=== PATIENT | male | born 1965 | race Caucasian/White ===

== ENCOUNTER 2016-10-20 13:27 | Emergency (ER) | payer BC ==
[2016-10-20 13:33] VITALS: BP 138/80; PULSE 74; RESP 20; TEMP 98.4
[2016-10-20] MEDS ORDERED: PROPARACAINE 0.5% OPHTH DROPS 15 ML BTL ONE (13:54)
--- NOTE | 2016-10-20 14:45 | ED ---
Eye Problem HPI - General Chief complaint: Eye Problems Stated complaint: Flash Burn to face Time Seen by Provider: 10/20/16 13:59 Source: patient, RN notes reviewed Mode of arrival: ambulatory Limitations: no limitations - History of Present Illness Initial comments: 50 yo male presents to the ER with cc of right eye irritation and pain. Patient has had this since Monday. Patient has been noticing some drainage and irritation to eye. Patient states that he was concerned it could be flashburn because he does well. Patient states that they are just continued irritated only one eye so he just does not seem to make sense. Patient denies any recent fever, chills, shortness of breath, chest pain, back pain, abdominal pain, nausea vomiting, numbness or tingling, dysuria or hematuria, constipation or diarrhea, headaches, or any other current symptoms. - Related Data Home Medications Medication Instructions Recorded Confirmed Insulin Glargine,Hum.rec.anlog 20 unit SQ HS 11/11/13 02/19/16 [Lantus Solostar] [place]-3 Acid Ethyl Esters [Lovaza] 1 gm PO BID 11/11/13 02/19/16 metFORMIN HCL [Glucophage] 1,000 mg PO AC-BID 02/24/15 02/19/16 Colchicine [Colcrys] 0.6 mg PO DAILY 02/19/16 02/19/16 Cyanocobalamin (Vitamin B-12) 1,000 mcg SL DAILY 02/19/16 02/19/16 [B-12 Oral Solution] Previous Rx's Medication Instructions Recorded Aspirin 325 mg PO DAILY #100 tab 02/21/16 Aspirin 325 mg PO DAILY #100 tab 02/21/16 Clopidogrel [Plavix] 75 mg PO DAILY #30 tab 02/21/16 Escitalopram [Lexapro] 10 mg PO DAILY #30 tab 02/21/16 HYDROcodone/APAP 7.5-325MG [Qu[place] 1 tab PO Q4H PRN #60 tab 02/21/16 7.5-325] Lisinopril [Zestril] 10 mg PO BID #30 tab 02/21/16 Metoprolol Tartrate [Lopressor] 50 mg PO BID #30 tab 02/21/16 Nitroglycerin Sl Tabs [Nitrostat] 0.4 mg SUBLINGUAL Q5M PRN #100 tab 02/21/16 Pravastatin Sodium [Pravachol] 80 mg PO HS #30 tab 02/21/16 Zolpidem [Ambien] 5 mg PO HS PRN #30 tab 02/21/16 amLODIPine [Norvasc] 5 mg PO DAILY 30 Days 02/21/16 Tobramycin 0.3% Ophth Oint [Tobrex 1 applic RIGHT EYE TID 7 Days 10/20/16 0.3% Ophth Oint] Allergies Allergy/AdvReac Type Severity Reaction Status Date / Time morphine Allergy Rash/Hives Verified 10/20/16 13:33 Review of Systems ROS Statement: Those systems with pertinent positive or pertinent negative responses have been documented in the HPI. ROS Other: All systems not noted in ROS Statement are negative. Past Medical History Past Medical History: Coronary Artery Disease (CAD), Chest Pain / Angina, Heart Failure, Diabetes Mellitus, Deep Vein Thrombosis (DVT), Hyperlipidemia, Hypertension, Myocardial Infarction ([place]), Vascular Disorder Additional Past Medical History / Comment(s): IDDM type II, KIDNEY STONES,PVD, DVT x6 LLE, history of prior nonischemic cardiomyopathy, [place] years ago (does not recall year). Last Myocardial Infarction Date:: unkn History of Any Multi-Drug Resistant Organisms: None Reported Past Surgical History: Cholecystectomy, Coronary Bypass/CABG, Heart Catheterization Additional Past Surgical History / Comment(s): 2013 CABG-4 vessel, Past Anesthesia/Blood Transfusion Reactions: No Reported Reaction Past Psychological History: No Psychological Hx Reported Additional Psychological History / Comment(s): Pt resides with his spouse and 2 dogs. He is independent. Smoking Status: Former smoker Past Alcohol Use History: None Reported Additional Past Alcohol Use History / Comment(s): Pt started smoking at the age of 21 yrs (1986) and is a ppd smoker. Past Drug Use History: None Reported - Past Family History Mother Family Medical History: Coronary Artery Disease (CAD), Dementia Additional Family Medical History / Comment(s): Mother is 82 yrs old. Father Family Medical History: CVA/TIA Additional Family Medical History / Comment(s): Father from CVA at the age of 47 yrs. Brother(s) Family Medical History: AICD/Pacemaker General Exam Limitations: no limitations General appearance: alert, in no apparent distress Head exam: Present: atraumatic, normocephalic, normal inspection Eye exam: Present: PERRL, EOMI, scleral icterus, conjunctival injection, other ( With lamp examination to show foreign body). Absent: normal appearance ( Patient appears to have a black foreign body at 3 o'clock position over the cornea), periorbital swelling (Due to the right eye), periorbital tenderness ENT exam: Present: normal exam, mucous membranes moist Neck exam: Present: normal inspection. Absent: tenderness, meningismus, lymphadenopathy Respiratory exam: Present: normal lung sounds bilaterally. Absent: respiratory distress, wheezes, rales, rhonchi, stridor Cardiovascular Exam: Present: regular rate, normal rhythm, normal heart sounds. Absent: systolic murmur, diastolic murmur, rubs, gallop, clicks Neurological exam: Present: alert, oriented X3 Psychiatric exam: Present: normal affect, normal mood Skin exam: Present: warm, dry, intact, normal color. Absent: rash Course Vital Signs 10/20/16 13:30 Temperature 98.4 F Pulse Rate 74 Respiratory 20 Rate Blood Pressure 138/80 O2 Sat by Pulse 99 Oximetry Procedures - Procedures Initial comment: Patient underwent proparacaine numbing drops. First 19-gauge needle was used to excise a small amount of the foreign body. The pain but was use which excised the rest of the foreign body however he continues to have a rust ring. Medical Decision Making - Medical Decision Making 50-year-old male presents to the right eye. At this time we did remove the foreign body or rust ring. It is a full-thickness of the rust ring we did discuss that he needs to follow-up with ophthalmology for this. We will start him on tobramycin ointment. Discussed return parameters and follow-up. Patient stated he understood all questions have been answered. He will be discharged. Disposition Clinical Impression: Acute foreign body of right eye, Corneal abrasion Disposition: HOME SELF-CARE Condition: Stable Instructions: Corneal Abrasion (ED) Additional Instructions: Please use medication as discussed. Please follow up with family doctor if symptoms have not improved over the next two days. Please return to the emergency room if your symptoms increase or worsen or for any other concerns. please contact optho today regarding followup. Prescriptions: Tobramycin 0.3% Ophth Oint [Tobrex 0.3% Ophth Oint] 1 applic RIGHT EYE TID 7 Days Referrals: Maurice Hernandez MD [Primary Care Provider] - 1-2 days Nigel Yun MD [STAFF PHYSICIAN] - 1-2 days Time of Disposition: 14:44
== END 2016-10-20 14:52 | disposition home or self-care (01) ==
LOC: EC 13:27
DX: T15.01XA Foreign body in cornea, right eye, initial encounter (principal); E11.9 Type 2 diabetes mellitus without complications; E78.5 Hyperlipidemia, unspecified; Z87.891 Personal history of nicotine dependence; Z79.4 Long term (current) use of insulin; Z79.84 Long term (current) use of oral hypoglycemic drugs; Z79.899 Other long term (current) drug therapy; Z88.5 Allergy status to narcotic agent; X19.XXXA Contact with other heat and hot substances, initial encounter; Y93.89 Activity, other specified
CPT/HCPCS: 65220; 99283

== ENCOUNTER → 2018-06-16 | Outpatient (CLI) | payer BC ==
[2018-06-16 11:04] LABS: HGB 15.8 gm/dL (13.0-17.5); MCH 29.8 pg (25.0-35.0); MCHC 33.7 g/dL (31.0-37.0); MCV 88.5 fL (80.0-100.0); Mean Platelet Volume 7.1; Platelet Count 243 k/uL (150-450); RBC 5.32 m/uL (4.30-5.90); WBC 6.1 k/uL (3.8-10.6)
[2018-06-16 11:11] LABS: Potassium 5.2 mmol/L (3.5-5.1)
== END | disposition home or self-care (01) ==
LOC: LABPAT 10:25
PROVIDERS: ATTEND Anesthesiology
DX: Z01.818 Encounter for other preprocedural examination (principal); Z01.812 Encounter for preprocedural laboratory examination; K46.9 Unspecified abdominal hernia without obstruction or gangrene
CPT/HCPCS: 36415; 80051; 85027; 93005

== ENCOUNTER 2018-06-19 08:45 | Day surgery (SDC) | payer BC ==
[2018-06-15 09:21] VITALS: BMI 29.9
[~2018-06-19 08:45] MED LIST: HEPARIN SODIUM,PORCINE 5,000 UNIT/ML 1 ML VIAL SQ ONE; ceFAZolin IN SWFI 2 GM/20 ML SYRINGE IVP ONE
[2018-06-19] MEDS ORDERED: LACTATED RINGERS 1,000 ML IV ONE (09:17)
[2018-06-19 09:18] LABS: Glucose,Whole Blood 131 mg/dL (75-99)
--- NOTE | 2018-06-19 09:26 | P.GSHP ---
History of Present Illness H&P Date: 06/19/18 Chief Complaint: Left inguinal hernia This a 52-year-old male who presents today for laparoscopic robotic system repair of left inguinal hernia. Patient developed a growing mass in his left groin pain he seen [facility] found have a reducible left and one hernia. Past Medical History Past Medical History: Diabetes Mellitus, Deep Vein Thrombosis (DVT), Hyperlipidemia, Myocardial Infarction ([place]), Vascular Disorder Additional Past Medical History / Comment(s): hx KIDNEY STONES, DVT x 6 , see Dr Freedman H&P, [place] 1994,1997,2015, inguinal hernia, PVD left leg Last Myocardial Infarction Date:: 2015 History of Any Multi-Drug Resistant Organisms: None Reported Past Surgical History: AICD, Cholecystectomy, Coronary Bypass/CABG, Heart Catheterization, Pacemaker, Tonsillectomy Additional Past Surgical History / Comment(s): 2013 CABG-4 vessel,. PACEMAKER/ [employer] Past Anesthesia/Blood Transfusion Reactions: No Reported Reaction Type of Cardiac Device: Permanent Pacemaker, AICD Device Placement Date:: 04/04/2017 Smoking Status: Current every day smoker - Past Family History Mother Family Medical History: No Reported History Additional Family Medical History / Comment(s): Mother is 82 yrs old. Father Family Medical History: CVA/TIA Additional Family Medical History / Comment(s): Father from CVA at the age of 47 yrs. Brother(s) Family Medical History: AICD/Pacemaker Medications and Allergies Home Medications Medication Instructions Recorded Confirmed Type Insulin Glargine,Hum.rec.anlog 10 unit SQ HS PRN 11/11/13 06/19/18 History [Lantus Solostar] metFORMIN HCL [Glucophage] 1,000 mg PO AC-BID 02/24/15 06/19/18 History Nitroglycerin Sl Tabs [Nitrostat] 0.4 mg SUBLINGUAL Q5M PRN #100 tab 02/21/16 Rx Aspirin [Adult Low Dose Aspirin EC] 81 mg PO HS 03/31/17 06/19/18 History Dulaglutide [Trulicity] 0.75 mg SQ RT-Q4H 03/31/17 06/19/18 History Escitalopram [Lexapro] 10 mg PO HS 03/31/17 06/19/18 History Lisinopril [Zestril] 20 mg PO QAM 03/31/17 06/19/18 History Prasugrel [Effient] 10 mg PO HS 03/31/17 06/19/18 History Rosuvastatin Calcium [Crestor] 40 mg PO HS 03/31/17 06/19/18 History Spironolactone [Aldactone] 25 mg PO DAILY 03/31/17 06/19/18 History Carvedilol [Coreg] 6.25 mg PO BID #60 tablet 04/03/17 06/19/18 Rx Allergies Allergy/AdvReac Type Severity Reaction Status Date / Time morphine Allergy Severe Rash/Hives Verified 06/19/18 09:05 Surgical - Exam Vital Signs Temp Pulse Resp BP Pulse Ox 98.3 F 74 16 126/83 96 06/19/18 08:57 06/19/18 08:57 06/19/18 08:57 06/19/18 08:57 06/19/18 08:57 - General well developed, no distress - Eyes PERRL - ENT normal pinna - Neck no masses - Respiratory normal expansion - Cardiovascular Rhythm: regular - Abdomen Reducible left inguinal hernia hernia Abdomen: soft, non tender Results - Labs Abnormal Lab Results - Last 24 Hours (Table) 06/19/18 Range/Units 09:15 POC Glucose (mg/dL) 131 H (75-99) mg/dL Assessment and Plan Assessment: Left inguinal hernia. We'll perform laparoscopic robotic-assisted repair.
[2018-06-19] MEDS ORDERED: MIDAZOLAM 2 MG/2 ML VIAL IV ONE (09:34)
[2018-06-19] MEDS ORDERED: NEOSTIGMINE 1 MG/ML 10 ML VIAL ONE (09:47)
[2018-06-19] MEDS ORDERED: ROPIVACAINE 5 MG/ML 30 ML VIAL ONE (09:47)
[2018-06-19] MEDS ORDERED: ePHEDrine SULFATE/0.9% NACL/PF 50 MG/5 ML SYRINGE IV ONE (09:47)
[2018-06-19] MEDS ORDERED: PROPOFOL 10 MG/ML 20 ML VIAL IV ONE (09:47)
[2018-06-19] MEDS ORDERED: fentaNYL (PF) 50 MCG/ML 2 ML AMP ONE (09:47)
[2018-06-19] MEDS ORDERED: KETOROLAC 30 MG/ML 1 ML VIAL ONE (09:47)
[2018-06-19] MEDS ORDERED: GLYCOPYRROLATE 0.2 MG/ML 2 ML VIAL ONE (09:47)
[2018-06-19] MEDS ORDERED: LIDOCAINE 1% INJ 10MG/ML (10 ML MDV) ONE (09:47)
[2018-06-19] MEDS ORDERED: LIDOCAINE 1% INJ 10MG/ML (20 ML MDV) ONE (09:47)
[2018-06-19] MEDS ORDERED: SUCCINYLCHOLINE CHLORIDE 100 MG/5 ML SYR IV ONE (09:47)
[2018-06-19] MEDS ORDERED: MIDAZOLAM 2 MG/2 ML VIAL ONE (09:47)
[2018-06-19] MEDS ORDERED: ROCURONIUM BROMIDE 10 MG/ML 10 ML VIAL IV ONE (09:47)
[2018-06-19] MEDS ORDERED: LIDOCAINE 1% 20 ML VIAL (10MG/ML) FOR IV START INTRADERMA ONE ×2 (09:50→09:51)
[2018-06-19] MEDS ORDERED: ONDANSETRON 4 MG/2 ML VIAL IVP ONE (09:51)
[2018-06-19] MEDS ORDERED: DEXAMETHASONE SOD PHOSPHATE 10 MG/ML 1 ML VIAL IV ONE (09:52)
[2018-06-19] MEDS ORDERED: BUPIVACAIN-EPI 0.25%-1:200,000 30 ML VIAL SQ ONE ×2 (09:54→10:20)
--- NOTE | 2018-06-19 11:07 | P.OP ---
Date of Procedure: 06/19/18 Preoperative Diagnosis: Left inguinal hernia Postoperative Diagnosis: Left inguinal hernia Procedure(s) Performed: Laparoscopic robotic-assisted repair of left inguinal hernia Excision of cord lipoma Anesthesia: CRISTEL Surgeon: Manuel Dodson Estimated Blood Loss (ml): 5 Pathology: other (Cord lipoma) Condition: stable Disposition: PACU Description of Procedure: The patient was placed on the operating table in the supine position. The patient received general anesthesia. The patient's abdomen was prepped and draped in usual sterile fashion. The skin was anesthetized 1% local Xylocaine at the incision sites. Using an 11 blade a skin incision was made at the umbilicus. The fascia was grasped with a [place] and then the peritoneal cavity was entered with the Veress needle. Position of the Veress needle was confirmed with a positive drop test. After adequate insufflation a 5 mm trocar was placed into the peritoneal cavity. The Laparoscope was placed the peritoneal cavity. And a robotic 8 mm trocar was placed in the right lateral position and then another 8 mm robotic trochars placed in the left lateral position. The original 5 mm trocar was exchanged for a 12 mm trocar. The patient was placed in reverse Trendelenburg and then the patient was docked to the robot. Next the peritoneum over top of the hernia was incised and then using blunt and sharp dissection and electrocautery the hernia sac was dissected free from the floor of the inguinal canal. The hernia sac was completely reduced into the peritoneal cavity. And then using the Pro mechanism assembler mesh the hernia was repaired. The peritoneum was then sutured with 2-0V lock suture. The patient was then undocked the robot. The cord lipoma was retrieved. The needle was withdrawn from the peritoneal cavity. The umbilical trocar site was closed with 0 Ethibond suture. The skin was closed interrupted 3-0 Monocryl suture. Dermabond dressing was applied. Patient was sent to recovery in stable condition.
[2018-06-19 11:24] LABS: Glucose,Whole Blood 161 mg/dL (75-99)
[2018-06-19 11:27] VITALS: TEMP 97.1
[2018-06-19 11:31] VITALS: RESP 16
--- NOTE | 2018-06-19 12:20 | P.ONQ ---
Anesthesiology Proc Note - PNB - Peripheral Nerve Block Performed Left Transversus Abdominis Single Time Out Performed: Yes Procedure Start Time: Procedure Stop Time: : Indication: Acute Post-Operative Pain, Requested by physician Sedation Type: Sedate with meaningful contact maintained Preparation: Sterile Prep Position: Supine Needle Size: 50mm (2") Needle Gauge: 21 Technique: Ultrasound Injectate: 0.5% Ropivacaine (see comment for volume) (ropi .5% 20cc plus xylo 1 % 10cc) Blood Aspirated: No Pain Paresthesia on Injection Noted: No Resistance on Injection: Normal Events: Uneventful and Well Tolerated
[2018-06-19 13:21] VITALS: PULSE 64
[2018-06-19 14:32] VITALS: BP 139/85
== END 2018-06-19 14:50 | disposition home or self-care (01) ==
LOC: OR 08:45
PROVIDERS: ATTEND Surgery
DX: K40.90 Unilateral inguinal hernia, without obstruction or gangrene, not specified as recurrent (principal); E11.51 Type 2 diabetes mellitus with diabetic peripheral angiopathy without gangrene; E78.5 Hyperlipidemia, unspecified; D17.6 Benign lipomatous neoplasm of spermatic cord; I25.2 Old myocardial infarction; F17.200 Nicotine dependence, unspecified, uncomplicated; F32.9 Major depressive disorder, single episode, unspecified; I25.10 Atherosclerotic heart disease of native coronary artery without angina pectoris; Z95.810 Presence of automatic (implantable) cardiac defibrillator; Z95.1 Presence of aortocoronary bypass graft; Z87.442 Personal history of urinary calculi; Z86.718 Personal history of other venous thrombosis and embolism; Z79.82 Long term (current) use of aspirin; Z79.4 Long term (current) use of insulin; Z88.5 Allergy status to narcotic agent
CPT/HCPCS: 88304; 84132; 49650; 64486; C1781; J2250; J1644; J1100; J2710; J2405; J2001 ×2; J3010; J1885; J2795; J0330; J2704; J0690

== ENCOUNTER → 2019-03-09 | Outpatient (CLI) | payer BC ==
[2019-03-11 10:27] LABS: African American GFR (CKD) 40.1 (60.0-200.0); BUN/Creat Ratio 20.48 Ratio (12.00-20.00); Calcium 9.4 mg/dL (8.7-10.3); Potassium 4.5 mmol/L (3.5-5.5)
== END | disposition home or self-care (01) ==
LOC: LABMAIN 18:28
PROVIDERS: ATTEND Internal Medicine Clinical Cardiac Electrophysiology
DX: I47.2 Ventricular tachycardia (principal)
CPT/HCPCS: 36415; 80048; 84443

== ENCOUNTER → 2019-06-21 | Outpatient (CLI) | payer BC ==
[2019-06-21 12:27] LABS: Magnesium 1.7 mg/dL (1.6-2.3); Potassium 4.5 mmol/L (3.5-5.1)
[2019-06-21 12:44] LABS: HCT 45.1 % (39.0-53.0); HGB 14.6 gm/dL (13.0-17.5); MCH 29.6 pg (25.0-35.0); MCHC 32.4 g/dL (31.0-37.0); MCV 91.3 fL (80.0-100.0); Mean Platelet Volume 7.5; Platelet Count 235 k/uL (150-450); RBC 4.93 m/uL (4.30-5.90); RDW 13.7 % (11.5-15.5); WBC 8.1 k/uL (3.8-10.6)
== END | disposition home or self-care (01) ==
LOC: LABPAT 11:20
PROVIDERS: ATTEND Internal Medicine Clinical Cardiac Electrophysiology
DX: Z01.812 Encounter for preprocedural laboratory examination (principal); I47.2 Ventricular tachycardia; I25.5 Ischemic cardiomyopathy
CPT/HCPCS: 36415; 80051; 82565; 82947; 83735; 84520; 85027

== ENCOUNTER 2019-06-25 11:48 | Day surgery (SDC) | payer BC ==
[2019-06-20 11:37] VITALS: BMI 29.2
[~2019-06-25 11:48] MED LIST changes: -HEPARIN SODIUM,PORCINE 5,000 UNIT/ML 1 ML VIAL SQ ONE; +LACTATED RINGERS 1,000 ML IV SCH; +LIDOCAINE 1% 20 ML VIAL (10MG/ML) FOR IV START INTRADERMA PRN; +ONDANSETRON 4 MG/2 ML VIAL IVP PRN; +SODIUM CHLORIDE 0.9% 1,000 ML IV SCH; -ceFAZolin IN SWFI 2 GM/20 ML SYRINGE IVP ONE; +fentaNYL (PF) 50 MCG/ML 2 ML AMP IV PRN
[2019-06-25 12:21] LABS: Glucose,Whole Blood 140 mg/dL (75-99)
[2019-06-25] MEDS ORDERED: FUROSEMIDE 10 MG/ML 2 ML VIAL ONE (13:59)
[2019-06-25] MEDS ORDERED: ISOPROTERENOL 250 MCG/1.25 ML SYR IV ONE (13:59)
[2019-06-25] MEDS ORDERED: SUCCINYLCHOLINE CHLORIDE VIAL 200 MG/10 ML VIAL IV ONE (13:59)
[2019-06-25] MEDS ORDERED: NEOSTIGMINE 1 MG/ML 10 ML VIAL ONE (13:59)
[2019-06-25] MEDS ORDERED: ePHEDrine SULFATE/0.9% NACL/PF 50 MG/5 ML SYRINGE IV ONE (13:59)
[2019-06-25] MEDS ORDERED: PROPOFOL 10 MG/ML 20 ML VIAL IV ONE (13:59)
[2019-06-25] MEDS ORDERED: ROCURONIUM BROMIDE 10 MG/ML 5 ML VIAL IV ONE (13:59)
[2019-06-25] MEDS ORDERED: PROTAMINE SULFATE 10 MG/ML 5 ML VIAL IV ONE ×3 (13:59→18:18)
[2019-06-25] MEDS ORDERED: fentaNYL (PF) 50 MCG/ML 2 ML AMP ONE (13:59)
[2019-06-25] MEDS ORDERED: GLYCOPYRROLATE 0.2 MG/ML 2 ML VIAL ONE (13:59)
[2019-06-25] MEDS ORDERED: MIDAZOLAM 2 MG/2 ML VIAL ONE (13:59)
[2019-06-25] MEDS ORDERED: HEPARIN SODIUM,PORCINE 10,000 UNIT/ML 1 ML VIAL ONE (13:59)
[2019-06-25] MEDS ORDERED: LIDOCAINE 1% INJ 10MG/ML (20 ML MDV) ONE ×2 (13:59→14:18)
[2019-06-25] MEDS ORDERED: HEPARIN SOD,PORK IN 0.45% NACL 25,000 UNIT in 0.45% NACL 1 250ML.BAG IV ONE (14:17)
[2019-06-25] MEDS ORDERED: HEPARIN SODIUM (1,000 UNIT/ML) 1,000 UNIT in SODIUM CHLORIDE 0.9% 1,000 ML IRRIGATION ONE (14:17)
[2019-06-25] MEDS ORDERED: LIDOCAINE 1% INJ 10MG/ML (20 ML MDV) SQ ONE (14:46)
[2019-06-25 16:20] LABS: Glucose,Whole Blood 109 mg/dL (75-99)
[2019-06-25] MEDS ORDERED: SODIUM CHLORIDE 0.9% 1,000 ML IV ONE (16:26)
[2019-06-25] MEDS ORDERED: PROTAMINE SULFATE 10 MG/ML 25 ML VIAL IV ONE (18:18)
[2019-06-25] MEDS ORDERED: ACETAMINOPHEN TAB 325 MG TAB PO PRN (18:19)
[2019-06-25] MEDS ORDERED: HYDROcodone/APAP 5-325MG 1 EACH TAB PO PRN (18:19)
--- NOTE | 2019-06-25 18:30 | P.PRLE ---
RE: Toribio Klein Dear Mauricemike Rooney underwent ablation for ischemic VT successfully. After the ablation he was rendered completely noninducible and no arrhythmias could be induced on and off Isuprel and aggressive ventricular stimulation protocol For the first one month post ablation I want to treat him with ELIQUIS 5 g twice daily as an anticoagulant. Therefore Effient must be held for that month and instead replaced with Plavix After one month when he stops ELIQUIS he should also stop Plavix and go back on Effient Effient and ELIQUIS should not be used together Thank you for entrusting me with the care of the patient Warm regards Sincerely Carlos Freedman
[2019-06-25] MEDS ORDERED: ACETAMINOPHEN IV (For NPO) 1,000 MG in EMPTY BAG 1 BAG IVPB ONE (19:30)
[2019-06-25] MEDS ORDERED: ONDANSETRON 4 MG/2 ML VIAL IVP ONE (19:30)
[2019-06-25 19:49] LABS: Glucose,Whole Blood 125 mg/dL (75-99)
[2019-06-25] MEDS ORDERED: ATORVASTATIN 80 MG TAB PO SCH (21:00)
[2019-06-25] MEDS ORDERED: ASPIRIN 81 MG PO SCH (21:00)
[2019-06-25] MEDS ORDERED: ESCITALOPRAM 10 MG TAB PO SCH (21:00)
[2019-06-25] MEDS: CARVEDILOL 12.5 MG TAB PO SCH (21:04)
[2019-06-25] MEDS: SACUBITRIL/VALSARTAN 49 MG-51 MG TABLET PO SCH (21:04)
[2019-06-25] MEDS: APIXABAN 5 MG TAB PO SCH (21:04)
[2019-06-25] MEDS: SOTALOL 80 MG TAB PO SCH (21:04)
[2019-06-26] MEDS: CARVEDILOL 12.5 MG TAB PO SCH (06:46)
[2019-06-26 06:51] LABS: Glucose,Whole Blood 164 mg/dL (75-99)
[2019-06-26] MEDS ORDERED: INSULIN DETEMIR (LEVEMIR) 100 UNIT/ML SYR SQ SCH (07:00)
[2019-06-26] MEDS ORDERED: metFORMIN 500 MG TAB PO SCH (07:30)
[2019-06-26] MEDS: APIXABAN 5 MG TAB PO SCH (08:44)
[2019-06-26] MEDS: SOTALOL 80 MG TAB PO SCH (08:45)
[2019-06-26] MEDS: SACUBITRIL/VALSARTAN 49 MG-51 MG TABLET PO SCH (08:46)
[2019-06-26] MEDS ORDERED: NON FORMULARY DRUG (Empagliflozin [Jardiance] 10 MG) PO SCH (09:00)
[2019-06-26] MEDS ORDERED: CLOPIDOGREL 75 MG TAB PO SCH (09:00)
[2019-06-26 11:36] VITALS: BP 123/77; PULSE 66; RESP 18; TEMP 98.1
--- NOTE | 2019-06-26 13:39 | P.DS ---
Providers Attending physician: Carlos Freedman Primary care physician: [facility] Course: Patient is doing well. No chest discomfort dizziness lightheadedness or palpitations His groins of healed well. His no hematoma no swelling Normal heart sounds are normal S1 normal S2 Breath sounds are clear no rhonchi no crackles Extremities are warm, no edema Impression Ventricular tachycardia, 2 separate morphologies detected on ICD interrogation Appropriate ICD therapies Status post scar based VT ablation Following that no VT was inducible on and off Isuprel and with an aggressive ventricular stim protocol Plan ELIQUIS 5 g twice daily for one month Plavix 75 g daily for one month Hold Effient for one month Continue other medications After one month stop ELIQUIS and Plavix and restart Effient Explained to the patient and I wrote it down for him Follow-up in the office in one week Patient Condition at Discharge: Stable Plan - Discharge Summary Discharge Rx Participant: No New Discharge Prescriptions: New Apixaban [Eliquis] 5 mg PO BID #60 tab Clopidogrel Bisulfate [Plavix] 75 mg PO DAILY #30 tab Discontinued Prasugrel [Effient] 10 mg PO HS No Action RX: metFORMIN HCL [Glucophage] 1,000 mg PO AC-BID RX: Nitroglycerin Sl Tabs [Nitrostat] 0.4 mg SUBLINGUAL Q5M PRN #100 tab PRN Reason: Chest Pain Aspirin [Adult Low Dose Aspirin EC] 81 mg PO HS Rosuvastatin Calcium [Crestor] 40 mg PO HS RX: Escitalopram [Lexapro] 10 mg PO HS Sotalol [Betapace] 80 mg PO BID Empagliflozin [Jardiance] 10 mg PO DAILY Carvedilol [Coreg] 25 mg PO BID Sacubitril/Valsartan [Entresto 49 mg-51 mg Tablet] 1 each PO BID Dulaglutide [Trulicity] 1.5 mg SQ BARBER Insulin Glargine,Hum.rec.anlog [Basaglar Kwikpen U-100] 26 unit SQ DAILY Discharge Medication List RX: metFORMIN HCL [Glucophage] 1,000 mg PO AC-BID 02/24/15 [History] RX: Nitroglycerin Sl Tabs [Nitrostat] 0.4 mg SUBLINGUAL Q5M PRN #100 tab 02/21/16 [Rx] Aspirin [Adult Low Dose Aspirin EC] 81 mg PO HS 03/31/17 [History] RX: Escitalopram [Lexapro] 10 mg PO HS 03/31/17 [History] Rosuvastatin Calcium [Crestor] 40 mg PO HS 03/31/17 [History] Carvedilol [Coreg] 25 mg PO BID 06/20/19 [History] Dulaglutide [Trulicity] 1.5 mg SQ BARBER 06/20/19 [History] Empagliflozin [Jardiance] 10 mg PO DAILY 06/20/19 [History] Insulin Glargine,Hum.rec.anlog [Basaglar Kwikpen U-100] 26 unit SQ DAILY 06/20/19 [History] Sacubitril/Valsartan [Entresto 49 mg-51 mg Tablet] 1 each PO BID 06/20/19 [History] Sotalol [Betapace] 80 mg PO BID 06/20/19 [History] Apixaban [Eliquis] 5 mg PO BID #60 tab 06/25/19 [Rx] Clopidogrel Bisulfate [Plavix] 75 mg PO DAILY #30 tab 06/25/19 [Rx] Follow up Appointment(s)/Referral(s): Carlos Freedman MD [STAFF PHYSICIAN] - 07/02/19 10:45 am (Monday with [employer]ESPERSON) Basilio Zazueta MD [STAFF PHYSICIAN] - 1 Week (You will see Dr. Freedman just for the follow up post ablation) Patient Instructions/Handouts: Cardiac Ablation (DC) Activity/Diet/Wound Care/Special Instructions: Post EP study - Ablation instructions 1. Keep access sites dry for 2 days. 2. No heavy lifting or straining for 2 days. 3. Avoid bending the hips repeatedly for 2 days. 4. You may go up and down stairs slowly Call if the following is noted 1. Bleeding, increasing swelling or pain at the access sites. 2. Increasing chest discomfort, especially upon taking a deep breath. 3. Increasing shortness of breath, at rest or with exertion. 4. Undue cough / phlegm 5. Difficulty or pain while swallowing. 6. Pain or change in color in the extremities. 7. Fever, chills, rigors. 8. Increasing headache or neurologic symptoms. 9. Dizziness, fainting, palpitations ELIQUIS 5 g twice daily for one month Plavix 75 g daily for one month While on ELIQUIS, do not take Effient After one month stop both ELIQUIS and Plavix and go back on Effient All other medications to continue Discharge Disposition: HOME SELF-CARE
--- NOTE | 2019-06-27 19:32 | P.HPCAR ---
History of Present Illness This is Dr. 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 Stable from a heart failure standpoint no orthopnea PND no chest discomfort no recent syncope in the last week or so PLAN: Proceed with EP study and ablation of VT HPI Patient with recurrent sustained ventricular tachycardia as well as ventricular fibrillation requiring ICD therapies Was admitted to the hospital for this Sotalol was initiated 80 mg twice daily Stress testing did not show any evidence for ischemia He is a mildly abnormal aortic valve and reduced LV systolic function with an inferolateral scar After detailed discussion with the patient in the office he decided to proceed with an EP study per my recommendation ROS: No fever chills or rigors, no cough, phlegm or expectoration, no nausea, vomiting or diarrhea, no hematuria, dysuria, no musculoskeletal complaints, no strokes or seizures, no skin lesions. EXAMINATION: 137/88 mmHg, afebrile 97.3F, pulse rate in the 60s and 70s Breath sounds are clear no rhonchi no crackles Heart sounds S1-S2 normal no murmurs gallop or rub Abdomen is soft nontender Extremities warm no edema, femoral pulses well palpable REVIEW OF LABS, ECG & MEDICAL DATA History of coronary artery disease History of atrial tachycardia with RVR Type 2 diabetes Hypertension PVD Past Medical History Past Medical History: Diabetes Mellitus, Deep Vein Thrombosis (DVT), Hyperlipidemia, Myocardial Infarction ([place]), Vascular Disorder Additional Past Medical History / Comment(s): See Dr Freedman H&P, hx KIDNEY STONES, DVT x 6, [place] 1994,1997,2015, PVD left leg Last Myocardial Infarction Date:: 2015 History of Any Multi-Drug Resistant Organisms: None Reported Past Surgical History: AICD, Cholecystectomy, Coronary Bypass/CABG, Heart Catheterization, Hernia Repair, Pacemaker, Tonsillectomy Additional Past Surgical History / Comment(s): left inguinal hernia, 2013 CABG-4 vessel, PACEMAKER/[employer] Past Anesthesia/Blood Transfusion Reactions: No Reported Reaction Type of Cardiac Device: Permanent Pacemaker, AICD Device Placement Date:: 04/04/2017 Smoking Status: Current every day smoker - Past Family History Mother Family Medical History: No Reported History Additional Family Medical History / Comment(s): Mother is 82 yrs old. Father Family Medical History: CVA/TIA Additional Family Medical History / Comment(s): Father from CVA at the age of 47 yrs. Brother(s) Family Medical History: AICD/Pacemaker
[2019-06-30] MEDS ORDERED: NON FORMULARY DRUG (Dulaglutide [Trulicity] 1.5 MG) SQ SCH (09:00)
--- NOTE | 2019-07-09 09:28 | PCN ---
PROCEDURE NOTE Mr. Klein is a 53-year-old male patient with significant cardiomyopathy. He has an inferior lateral myocardial infarct, old, and has had runs of non sustained ventricular tachycardia and has been treated with sotalol. He is brought in for an EP study and for ischemic VT, scar base. DESCRIPTION OF PROCEDURE: The patient is brought to the EP lab in a fasting state. Written informed consent was obtained prior to the procedure. The patient was performed with conscious sedation. The patient has a [place] [employer] device that was interrogated with a programmed backup pacing AV/VA at 40 beats per minute and impedance and sensing was interrogated. The tachytherapies are turned off. At the end of the procedure, the tachytherapies are turned on. R waves are 14.7 millivolts. The pacing impedance was 467 ohms. The shocking impedance was 68 ohms. They were stable. A long femoral artery sheath was placed in the right femoral artery. Venous sheaths are placed in the left femoral vein. Intracardiac echo catheter was placed. Diagnostic catheters were placed. The PentaRay catheter was first placed in the LV and scar map details. The map was performed in the inferior wall. CD mapping was performed with intracardiac echo. The scar was carefully defined and the isthmi were carefully defined (with bipolar voltage). The area of scar based upon the bipolar voltage map was smaller than the unipolar scar map. Ablation was based on the bipolar map. The isthmi-riddled scars were carefully deleted. Extra stimulation was performed and the functions, significance of each isthmus was defined with ventricular extra stimulation with single extra stimuli, 30 milliseconds above the ERP. Thereafter, scar homogenization was performed. The isthmi were carefully ablated. Following this, a detailed EP study is performed both on and off Isuprel. Once the isthmus was completely homogenized, a linear ablation was performed from the base of the scar to the mitral isthmus to prevent ischemic ventricular tachycardia (mitral isthmus reentry). Sinus cycle length 802 milliseconds, MI interval 199 milliseconds, QRS 125 milliseconds, QT4 29 milliseconds, AH interval 86 milliseconds, HV interval 43 milliseconds. Ventricular extra stimulation is performed up to double extra stimuli without Isuprel. No VT was induced. Isuprel was then started and ventricular extra stimulation is performed up to triple extra stimuli and two different drive trains. Burst stimulation is performed. Long-short sequences are performed. No VT could be induced. AV node Wenckebach block to 90 milliseconds from the high right atrium. AV node Wenckebach block from the coronary sinus at 20 milliseconds. Sinus node recovery time with a basic cycle length of 500 millisecond was 1040 milliseconds. Corrected sinus node recovery time was within normal limits. Despite our failure at aggressive protocol, no further ventricular tachycardia could be induced. All catheters were then removed. The patient was transferred back to telemetry. During the ablation, an irrigated-tipped RF ablation catheter contact first catheter was used and ablation was performed using 40 escalera of power for about 20-30 seconds, monitoring the impedance. RESULT: Ischemic cardiomyopathy with inferior wall scar. The bipolar scar is smaller in dimensions than the unipolar scar. Intracardiac echo also confirmed an inferior scar. Scar homogeneity which was performed after the functional isthmi identified with ventricular extra stimulation. A linear RF ablation was performed from the homogenized scar to the mitral annulus to prevent mitral reentry. The patient tolerated the procedure well without any acute complications. MMODL / IJN: [id number] /
== END 2019-06-26 12:12 | disposition home or self-care (01) ==
LOC: CATHEP 11:48 → 3SCARD 18:10 → CATHEP 06-26 12:12
PROVIDERS: ATTEND Internal Medicine Clinical Cardiac Electrophysiology
DX: I47.2 Ventricular tachycardia (principal); I49.01 Ventricular fibrillation; I47.1 Supraventricular tachycardia; I25.5 Ischemic cardiomyopathy; I25.2 Old myocardial infarction; I25.10 Atherosclerotic heart disease of native coronary artery without angina pectoris; I10 Essential (primary) hypertension; E11.51 Type 2 diabetes mellitus with diabetic peripheral angiopathy without gangrene; E78.5 Hyperlipidemia, unspecified; F17.200 Nicotine dependence, unspecified, uncomplicated; Z95.810 Presence of automatic (implantable) cardiac defibrillator; Z95.1 Presence of aortocoronary bypass graft; Z86.718 Personal history of other venous thrombosis and embolism; Z79.4 Long term (current) use of insulin; Z79.899 Other long term (current) drug therapy; Z88.5 Allergy status to narcotic agent; Z98.890 Other specified postprocedural states; Z82.3 Family history of stroke; Z82.49 Family history of ischemic heart disease and other diseases of the circulatory system; Z90.49 Acquired absence of other specified parts of digestive tract; Z87.442 Personal history of urinary calculi
CPT/HCPCS: 85347; 93623; 93662; 93654; C1894; C1769 ×4; C1760; C1731; C1759; C1893; C1732; J2250; J0330; J2720; J1644 ×3; J1940; J2710; J0690; J2405; J2001; J3010; J2704

== ENCOUNTER 2019-10-25 14:21 | Emergency (ER) | payer BC ==
[2019-10-25 14:28] VITALS: TEMP 97.6
--- NOTE | 2019-10-25 15:04 | ED ---
Recheck HPI - General Chief Complaint: Recheck/Abnormal Lab/Rx Stated Complaint: sent by Time Seen by Provider: 10/25/19 14:45 Source: patient Mode of arrival: ambulatory Limitations: no limitations - History of Present Illness Initial Comments: Patient is a 53-year-old male presenting to the emergency department after being sent in by his doctor, Dr. Maya. Patient states he went to the hospital today to have a CT of the chest as well as an ultrasound of his left leg but was told by Dr. Pineda to come to the ER given his blood test. Patient is unsure what his blood test were. Patient has no complaints at this time. He states he was getting a CT of his chest because of a cough for 4 days and is also scheduled for an ablation next week. Patient was also getting a left lower extremity ultrasound due to chronic swelling of his left leg. He denies any pain in this leg. He denies any chest pain, shortness of breath, abdominal pain. He denies any dizziness. He has no complaints at this time. Patient is not happy that he is here in the ER. No recent changes in medication. Patient has no other complaints at this time. - Related Data Home Medications Medication Instructions Recorded Confirmed metFORMIN HCL [Glucophage] 1,000 mg PO AC-BID 02/24/15 09/10/19 Aspirin [Adult Low Dose Aspirin EC] 81 mg PO QAM 03/31/17 09/10/19 Escitalopram [Lexapro] 10 mg PO QAM 03/31/17 09/10/19 Rosuvastatin Calcium [Crestor] 40 mg PO QAM 03/31/17 09/10/19 Carvedilol [Coreg] 25 mg PO BID 06/20/19 09/10/19 Dulaglutide [Trulicity] 1.5 mg SQ BARBER 06/20/19 09/10/19 Empagliflozin [Jardiance] 10 mg PO DAILY 06/20/19 09/10/19 Insulin Glargine,Hum.rec.anlog 1 dose SQ DAILY PRN 06/20/19 09/10/19 [Basaglar Kwikpen U-100] Sacubitril/Valsartan [Entresto 49 1 each PO BID 06/20/19 09/10/19 mg-51 mg Tablet] Sotalol [Betapace] 80 mg PO BID 06/20/19 09/10/19 Prasugrel [Effient] 10 mg PO DAILY 09/10/19 Previous Rx's Medication Instructions Recorded Nitroglycerin Sl Tabs [Nitrostat] 0.4 mg SUBLINGUAL Q5M PRN #100 tab 02/21/16 Allergies Allergy/AdvReac Type Severity Reaction Status Date / Time morphine Allergy Severe Rash/Hives Verified 10/25/19 14:28 Review of Systems ROS Statement: Those systems with pertinent positive or pertinent negative responses have been documented in the HPI. ROS Other: All systems not noted in ROS Statement are negative. Past Medical History Past Medical History: Diabetes Mellitus, Deep Vein Thrombosis (DVT), Hyperlipidemia, Myocardial Infarction ([place]), Vascular Disorder Additional Past Medical History / Comment(s): [place] X7, DVT X6 LEFT LEG, HX KIDNEY STONES, PVD LEFT LEG., HX OF V-TACH, CARDIOMYOPATHY., SEE CARDIOLOGY H & P. Last Myocardial Infarction Date:: 2015 History of Any Multi-Drug Resistant Organisms: None Reported Past Surgical History: AICD, Cardiac Ablation, Cholecystectomy, Coronary Bypass/CABG, Heart Catheterization, Hernia Repair, Pacemaker, Tonsillectomy Additional Past Surgical History / Comment(s): left inguinal hernia, 2013 CABG-4 vessel, PACEMAKER/[employer] Past Anesthesia/Blood Transfusion Reactions: Postoperative Nausea & Vomiting (PONV) Type of Cardiac Device: Permanent Pacemaker, AICD Device Placement Date:: 04/04/2017 Past Psychological History: No Psychological Hx Reported Smoking Status: Current every day smoker Past Alcohol Use History: None Reported Past Drug Use History: None Reported - Past Family History Mother Family Medical History: No Reported History Additional Family Medical History / Comment(s): Mother is 82 yrs old. Father Family Medical History: CVA/TIA Additional Family Medical History / Comment(s): Father from CVA at the age of 47 yrs. Brother(s) Family Medical History: AICD/Pacemaker General Exam - General Exam Comments Initial Comments: GENERAL: Well-appearing, well-nourished and in no acute distress. HEAD: Atraumatic, normocephalic. EYES: Pupils equal round and reactive to light, extraocular movements intact, sclera anicteric, conjunctiva are normal. ENT: TMs normal, nares patent, oropharynx clear without exudates. Moist mucous membranes. NECK: Normal range of motion, supple without lymphadenopathy or JVD. LUNGS: Breath sounds clear to auscultation bilaterally and equal. No wheezes rales or rhonchi. HEART: Regular rate and rhythm without murmurs, rubs or gallops. ABDOMEN: Soft, nontender, normoactive bowel sounds. No guarding, no rebound. No masses appreciated. : Deferred EXTREMITIES: Mild swelling to left lower extremity when compared to the right. No pain with palpation. No erythema. Neurovascular intact. Normal range of motion, no pitting or edema. No clubbing or cyanosis. NEUROLOGICAL: Cranial nerves II through XII grossly intact. Normal speech, normal gait. PSYCH: Normal mood, normal affect. SKIN: Warm, Dry, normal turgor, no rashes or lesions noted. Limitations: no limitations Course Vital Signs 10/25/19 10/25/19 14:24 17:44 Temperature 97.6 F Pulse Rate 64 67 Respiratory 18 17 Rate Blood Pressure 152/90 120/73 O2 Sat by Pulse 99 99 Oximetry Medical Decision Making - Medical Decision Making Patient is 53-year-old male here sent in by Dr. Pineda for abnormal labs. Patient was scheduled to have a left lower extremity ultrasound as well as a chest CTA. Patient's kidney function is elevated with creatinine at 2.86, BUN is 48. Urine shows 3+ protein, 4+ glucose. Ultrasound of the left lower extremity is positive for nonoccluding, chronic appearing DVT from the common femoral vein down to the popliteal vein. Patient was given a liter of fluids. He continues to have no complaints at this time. I did speak to Dr. Hernandez who is covering for Dr. Pineda and he is okay with patient to being discharged home. He will follow-up with patient on Monday morning. Patient is in agr eement with this plan as he did not want to stay in the hospital. Return parameters were discussed with the patient and he verbalized understanding. Case discussed with Dr. Bautista. - Lab Data Result diagrams: 10/25/19 15:16 10/25/19 15:16 Lab Results 10/25/19 10/25/19 10/25/19 Range/Units 15:16 15:16 15:16 WBC 6.0 (3.8-10.6) k/uL RBC 4.08 L (4.30-5.90) m/uL Hgb 11.9 L (13.0-17.5) gm/dL Hct 36.5 L (39.0-53.0) % MCV 89.4 (80.0-100.0) fL MCH 29.3 (25.0-35.0) pg MCHC 32.7 (31.0-37.0) g/dL RDW 13.9 (11.5-15.5) % Plt Count 205 (150-450) k/uL Neutrophils % 62 % Lymphocytes % 23 % Monocytes % 7 % Eosinophils % 5 % Basophils % 1 % Neutrophils # 3.7 (1.3-7.7) k/uL Lymphocytes # 1.4 (1.0-4.8) k/uL Monocytes # 0.4 (0-1.0) k/uL Eosinophils # 0.3 (0-0.7) k/uL Basophils # 0.1 (0-0.2) k/uL PT 9.8 (9.0-12.0) sec INR 0.9 (<1.2) APTT 23.9 (22.0-30.0) sec Sodium 140 (137-145) mmol/L Potassium 4.7 (3.5-5.1) mmol/L Chloride 111 H (98-107) mmol/L Carbon Dioxide 20 L (22-30) mmol/L Anion Gap 9 mmol/L BUN 48 H (9-20) mg/dL Creatinine 2.86 H (0.66-1.25) mg/dL Est GFR (CKD-EPI)AfAm 28 (>60 ml/min/1.73 sqM) Est GFR (CKD-EPI)NonAf 24 (>60 ml/min/1.73 sqM) Glucose 119 H (74-99) mg/dL Calcium 9.2 (8.4-10.2) mg/dL Magnesium 1.9 (1.6-2.3) mg/dL Total Bilirubin 0.5 (0.2-1.3) mg/dL AST 18 (17-59) U/L ALT 15 (4-49) U/L Alkaline Phosphatase 66 (38-126) U/L Total Protein 6.6 (6.3-8.2) g/dL Albumin 3.9 (3.5-5.0) g/dL Urine Color Urine Appearance (Clear) Urine pH (5.0-8.0) Ur Specific [place] (1.001-1.035) Urine Protein (Negative) Urine Glucose (UA) (Negative) Urine Ketones (Negative) Urine Blood (Negative) Urine Nitrite (Negative) Urine Bilirubin (Negative) Urine Urobilinogen (<2.0) mg/dL Ur Leukocyte Esterase (Negative) Urine RBC (0-5) /hpf Urine WBC (0-5) /hpf 10/24/ Range/Units 15:29 WBC (3.8-10.6) k/uL RBC (4.30-5.90) m/uL Hgb (13.0-17.5) gm/dL Hct (39.0-53.0) % MCV (80.0-100.0) fL MCH (25.0-35.0) pg MCHC (31.0-37.0) g/dL RDW (11.5-15.5) % Plt Count (150-450) k/uL Neutrophils % % Lymphocytes % % Monocytes % % Eosinophils % % Basophils % % Neutrophils # (1.3-7.7) k/uL Lymphocytes # (1.0-4.8) k/uL Monocytes # (0-1.0) k/uL Eosinophils # (0-0.7) k/uL Basophils # (0-0.2) k/uL PT (9.0-12.0) sec INR (<1.2) APTT (22.0-30.0) sec Sodium (137-145) mmol/L Potassium (3.5-5.1) mmol/L Chloride (98-107) mmol/L Carbon Dioxide (22-30) mmol/L Anion Gap mmol/L BUN (9-20) mg/dL Creatinine (0.66-1.25) mg/dL Est GFR (CKD-EPI)AfAm (>60 ml/min/1.73 sqM) Est GFR (CKD-EPI)NonAf (>60 ml/min/1.73 sqM) Glucose (74-99) mg/dL Calcium (8.4-10.2) mg/dL Magnesium (1.6-2.3) mg/dL Total Bilirubin (0.2-1.3) mg/dL AST (17-59) U/L ALT (4-49) U/L Alkaline Phosphatase (38-126) U/L Total Protein (6.3-8.2) g/dL Albumin (3.5-5.0) g/dL Urine Color Yellow Urine Appearance Clear (Clear) Urine pH 6.5 (5.0-8.0) Ur Specific [place] 1.013 (1.001-1.035) Urine Protein 3+ H (Negative) Urine Glucose (UA) 4+ H (Negative) Urine Ketones Negative (Negative) Urine Blood Small H (Negative) Urine Nitrite Negative (Negative) Urine Bilirubin Negative (Negative) Urine Urobilinogen <2.0 (<2.0) mg/dL Ur Leukocyte Esterase Negative (Negative) Urine RBC 6 H (0-5) /hpf Urine WBC <1 (0-5) /hpf Disposition Clinical Impression: Chronic deep vein thrombosis (DVT) of left lower extremity, Elevated serum creatinine Disposition: HOME SELF-CARE Condition: Stable Instructions (If sedation given, give patient instructions): Deep Vein Thrombosis (ED) Additional Instructions: Please return to the Emergency Department if symptoms worsen or any other concerns. Follow-up with Dr. Pineda's office as discussed. Is patient prescribed a controlled substance at d/c from ED?: No Referrals: Joshua Maya Jr, [Primary Care Provider] - 1-2 days
[2019-10-25 15:39] LABS: Appearance,Urine Clear (Clear); Bilirubin,Urine Negative (Negative); Blood,Urine Small (Negative); Color,Urine Yellow; Glucose,Urine (UA) 4+ (Negative); Ketones,Urine Negative (Negative); Leukocyte Esterase,Urine Negative (Negative); Nitrite,Urine Negative (Negative); PH, Urine 6.5 (5.0-8.0); Protein,Urine 3+ (Negative); RBC,Urine 6 /hpf (0-5); Specific Gravity,Urine 1.013 (1.001-1.035); Urobilinogen,Urine <2.0 mg/dL (<2.0); WBC,Urine <1 /hpf (0-5)
[2019-10-25 15:43] LABS: Basophils # (A) 0.1 k/uL (0-0.2); Basophils % (A) 1 %; Eosinophils # (A) 0.3 k/uL (0-0.7); Eosinophils % (A) 5 %; HCT 36.5 % (39.0-53.0); HGB 11.9 gm/dL (13.0-17.5); Lymphocytes # (A) 1.4 k/uL (1.0-4.8); Lymphocytes % (A) 23 %; MCH 29.3 pg (25.0-35.0); MCHC 32.7 g/dL (31.0-37.0); MCV 89.4 fL (80.0-100.0); Mean Platelet Volume 8.1; Monocytes # (A) 0.4 k/uL (0-1.0); Monocytes % (A) 7 %; Neutrophils # (A) 3.7 k/uL (1.3-7.7); Neutrophils % (A) 62 %; Platelet Count 205 k/uL (150-450); RBC 4.08 m/uL (4.30-5.90); RDW 13.9 % (11.5-15.5)
[2019-10-25 15:48] LABS: Albumin 3.9 g/dL (3.5-5.0); Calcium 9.2 mg/dL (8.4-10.2); Magnesium 1.9 mg/dL (1.6-2.3); Potassium 4.7 mmol/L (3.5-5.1); Total Bilirubin 0.5 mg/dL (0.2-1.3); Total Protein 6.6 g/dL (6.3-8.2)
[2019-10-25 15:56] LABS: INR 0.9 (<1.2); Partial Thromboplastin Time 23.9 sec (22.0-30.0); Prothrombin Time 9.8 sec (9.0-12.0)
--- NOTE | 2019-10-25 16:08 | US ---
EXAMINATION TYPE: US venous doppler duplex LE LT DATE OF EXAM: 10/25/2019 3:56 PM COMPARISON: US 02/19/2016 CLINICAL HISTORY: 53-year-old male swelling. History of DVT, patient currently taking blood thinners SIDE PERFORMED: Left TECHNIQUE: The lower extremity deep venous system is examined utilizing real time linear array sonog emiliano with graded compression, doppler sonography and color-flow sonography. FINDINGS: VESSELS IMAGED: External Iliac Vein (EIV) Common Femoral Vein Deep Femoral Vein Greater Saphenous Vein * Femoral Vein Popliteal Vein Small Saphenous Vein * Proximal Calf Veins (* superficial vessels) Left Leg: Positive for non-occluding, chronic appearing DVT from the CFV down to the popliteal vein IMPRESSION: Exam remains positive for chronic appearing nonocclusive DVT from the common femoral vein down throug h the knee.
[2019-10-25] MEDS ORDERED: SODIUM CHLORIDE 0.9% 1,000 ML IV STA (16:29)
[2019-10-25 17:45] VITALS: BP 120/73; PULSE 67; RESP 17
== END 2019-10-25 17:49 | disposition home or self-care (01) ==
LOC: EC 14:21
DX: I82.512 Chronic embolism and thrombosis of left femoral vein (principal); R79.89 Other specified abnormal findings of blood chemistry; E78.5 Hyperlipidemia, unspecified; I25.2 Old myocardial infarction; E11.51 Type 2 diabetes mellitus with diabetic peripheral angiopathy without gangrene; F17.200 Nicotine dependence, unspecified, uncomplicated; Z79.82 Long term (current) use of aspirin; Z79.02 Long term (current) use of antithrombotics/antiplatelets; Z79.4 Long term (current) use of insulin; Z79.899 Other long term (current) drug therapy; Z88.5 Allergy status to narcotic agent; Z95.1 Presence of aortocoronary bypass graft; Z95.810 Presence of automatic (implantable) cardiac defibrillator
CPT/HCPCS: 36415; 80053; 81001; 83735; 85025; 85610; 85730; 96360; 99284

== ENCOUNTER → 2019-10-25 | Outpatient (CLI) | payer BC | END | disposition home or self-care (01) | LOC: RADCTMAIN 12:58 | PROVIDERS: ATTEND Family Medicine | DX: R22.42 Localized swelling, mass and lump, left lower limb (principal); Z86.711 Personal history of pulmonary embolism; Z86.718 Personal history of other venous thrombosis and embolism | CPT/HCPCS: 82565; 84520 ==

== ENCOUNTER → 2019-10-28 | Outpatient (CLI) | payer BC | END | disposition home or self-care (01) | LOC: LABWHC1 12:52 | PROVIDERS: ATTEND Internal Medicine Clinical Cardiac Electrophysiology | DX: Z11.59 Encounter for screening for other viral diseases (principal) ==

== ENCOUNTER → 2019-10-29 | Day surgery (SDC) | payer BC ==
[2019-10-28 09:41] VITALS: BMI 29.2
[~2019-10-29] MED LIST changes: -LIDOCAINE 1% 20 ML VIAL (10MG/ML) FOR IV START INTRADERMA PRN; +MIDAZOLAM 2 MG/2 ML VIAL ONE; -ONDANSETRON 4 MG/2 ML VIAL IVP PRN; +PROPOFOL 10 MG/ML 20 ML VIAL IV ONE; +SODIUM CHLORIDE 0.9% 500 ML 500 ML IV ONE; -fentaNYL (PF) 50 MCG/ML 2 ML AMP IV PRN
[2019-10-29 06:56] LABS: Glucose,Whole Blood 125 mg/dL (75-99)
[2019-10-29 06:58] VITALS: RESP 16; TEMP 97.9
--- NOTE | 2019-10-29 08:14 | P.HPCAR ---
History of Present Illness This is Dr. Freedman dictating an H/P on this patient The patient was interviewed and examined IMPRESSION / ASSESSMENT: Coronary artery disease, status post coronary artery bypass grafting Ischemic cardio myopathy, history of ventricular tachycardia Severe LV dysfunction ejection fraction 25% Status post VT ablation currently on sotalol 80 mg twice daily Type 2 diabetes Hypertension 9 dyslipidemia Peripheral vascular disease At this time the patient denies any chest discomfort orthopnea PND shortness of breath on exertion PLAN: Noninvasive program stimulation on sotalol Continue carvedilol Effient ENTRESTO rosuvastatin and aspirin HPI 53-year-old male patient with a history of ventricular tachycardia He underwent successful VT ablation He has severe underlying ischemic cardio myopathy with a severely reduced left ventricular ejection fraction of 25% Mild mitral regurgitation and mild aortic regurgitation ROS: No fever chills or rigors, no cough, phlegm or expectoration, no nausea, vomiting or diarrhea, no hematuria, dysuria, no musculoskeletal complaints, no strokes or seizures, no skin lesions. EXAMINATION: 97.9F, pulse rate in the 70s, blood pressure 156/90 Breath sounds are clear no rhonchi no crackles Normal heart sounds no S3 gallop no murmurs Abdomen is soft No hepatojugular reflux Orthopnea REVIEW OF LABS, ECG & MEDICAL DATA glucose 125 ICD interrogated and thresholds within normal limits Physical Exam Vitals: Vital Signs Temp Pulse Resp BP Pulse Ox 10/29/19 06:56 97.9 F 74 16 156/90 95 Intake and Output 10/28/19 10/29/19 10/29/19 22:59 06:59 14:59 Intake Total 200 Balance 200 Intake: IV 200 Other: Weight 94 kg Past Medical History Past Medical History: Diabetes Mellitus, Deep Vein Thrombosis (DVT), Hyperlipidemia, Hypertension, Myocardial Infarction ([place]), Vascular Disorder Additional Past Medical History / Comment(s): [place] X7, DVT X6 LEFT LEG, HX KIDNEY STONES, PVD LEFT LEG., HX OF V-TACH, CARDIOMYOPATHY., SEE CARDIOLOGY H & P. Last Myocardial Infarction Date:: 2015 History of Any Multi-Drug Resistant Organisms: None Reported Past Surgical History: AICD, Cardiac Ablation, Cholecystectomy, Coronary Bypass/CABG, Heart Catheterization, Hernia Repair, Pacemaker, Tonsillectomy Additional Past Surgical History / Comment(s): left inguinal hernia, 2013 CABG-4 vessel, PACEMAKER/[employer] Past Anesthesia/Blood Transfusion Reactions: Postoperative Nausea & Vomiting (PONV) Type of Cardiac Device: Permanent Pacemaker, AICD Device Placement Date:: 04/04/2017 Smoking Status: Current every day smoker - Past Family History Mother Family Medical History: No Reported History Additional Family Medical History / Comment(s): Mother is 82 yrs old. Father Family Medical History: CVA/TIA Additional Family Medical History / Comment(s): Father from CVA at the age of 47 yrs. Brother(s) Family Medical History: AICD/Pacemaker Physical Examination Vital Signs Temp Pulse Resp BP Pulse Ox 10/29/19 06:56 97.9 F 74 16 156/90 95 Intake and Output 10/28/19 10/29/19 10/29/19 22:59 06:59 14:59 Intake Total 200 Balance 200 Intake: IV 200 Other: Weight 94 kg Results Current Medications Generic Name Dose Route Start Last Admin Trade Name Freq PRN Reason Stop Dose Admin Lactated Ringer's 1,000 mls @ 20 mls/hr 10/29/19 05:49 Lactated Ringers IV .Q24H ASHLEY Sodium Chloride 1,000 mls @ 50 mls/hr 10/29/19 05:49 Saline 0.9% IV .Q20H ASHLEY Intake and Output 10/28/19 10/29/19 10/29/19 22:59 06:59 14:59 Intake Total 200 Balance 200 Intake: IV 200 Other: Weight 94 kg
--- NOTE | 2019-10-29 08:15 | P.PRLE ---
RE: Toribio Klein Dear Maurice Toribio underwent a diagnostic EP study via the ICD, noninvasive program stimulation and he had no inducible ventricular tachycardia I would continue all his cardiac medications unchanged at this time Thank you for entrusting me with the care of the patient Warm regards Sincerely Carlos Freedman
--- NOTE | 2019-10-29 08:21 | P.PCN ---
Preoperative Diagnosis: Diagnosis History of ventricular tachycardia History of VT ablation line underlying ischemic cardio myopathy Procedure Noninvasive program stimulation Details Sinus cycle length 838 ms, ME interval 196, QRS 123 ms and QT interval 444 ms Ventricular extra stimulation was performed at 2 drive trains, 604 100 as well as along short sequences, after double extrastimuli Occasional PVCs induced No sustained or nonsustained VT induced Burst stimulation was performed No inducible ventricular tachycardia [employer] device interrogation revealed normal parameters R waves 18.4 mV, pacing impedance 444 ohms and pacing threshold 0.7 V at 0.4 ms Shocking impedance 60 ohms 1% RV pacing Device programmed at VVI 40 beats a minute for pacing backup MADIT RIT programming for tachyarrhythmias Plan Continue low-dose sotalol along with heart failure medications
[2019-10-29 09:38] VITALS: BP 133/77; PULSE 71
== END | disposition home or self-care (01) ==
LOC: CATHEP 06:25
PROVIDERS: ATTEND Internal Medicine Clinical Cardiac Electrophysiology
DX: I47.2 Ventricular tachycardia (principal); I49.3 Ventricular premature depolarization; I25.5 Ischemic cardiomyopathy; I25.10 Atherosclerotic heart disease of native coronary artery without angina pectoris; E11.9 Type 2 diabetes mellitus without complications; I10 Essential (primary) hypertension; E78.5 Hyperlipidemia, unspecified; I73.9 Peripheral vascular disease, unspecified; I08.0 Rheumatic disorders of both mitral and aortic valves; I25.2 Old myocardial infarction; F17.200 Nicotine dependence, unspecified, uncomplicated; Z95.1 Presence of aortocoronary bypass graft; Z98.890 Other specified postprocedural states; Z79.899 Other long term (current) drug therapy; Z86.718 Personal history of other venous thrombosis and embolism; Z87.442 Personal history of urinary calculi; Z95.810 Presence of automatic (implantable) cardiac defibrillator; Z90.49 Acquired absence of other specified parts of digestive tract; Z90.89 Acquired absence of other organs; Z91.89 Other specified personal risk factors, not elsewhere classified; Z97.2 Presence of dental prosthetic device (complete) (partial); Z79.4 Long term (current) use of insulin; Z79.02 Long term (current) use of antithrombotics/antiplatelets; Z79.01 Long term (current) use of anticoagulants; Z87.898 Personal history of other specified conditions; Z82.3 Family history of stroke; Z82.49 Family history of ischemic heart disease and other diseases of the circulatory system
CPT/HCPCS: 93642; J2250; J2704

== ENCOUNTER → 2019-11-04 | Outpatient (CLI) | payer BC ==
[2019-11-04 21:34] LABS: African American GFR (CKD) 25.9 (60.0-200.0); Anion Gap 10.1 mmol/L (4.00-12.00); BUN/Creat Ratio 20.67 Ratio (12.00-20.00); Calcium 9.5 mg/dL (8.7-10.3); Carbon Dioxide 25.9 mmol/L (21.6-31.8); Magnesium 1.7 mg/dL (1.5-2.4); Non-African American GFR(CKD) 22.3 (60.0-200.0); Potassium 4.6 mmol/L (3.5-5.5)
== END | disposition home or self-care (01) ==
LOC: LABWHC1 13:56
PROVIDERS: ATTEND Physician Assistant
DX: I50.9 Heart failure, unspecified (principal)
CPT/HCPCS: 36415; 80048; 83735

== ENCOUNTER → 2020-08-04 | Outpatient (CLI) | payer BC ==
--- NOTE | 2020-08-04 10:38 | XR ---
EXAMINATION TYPE: XR chest 1V DATE OF EXAM: 08/04/2020 COMPARISON: 04/04/2017 HISTORY: Pain TECHNIQUE: Single frontal view of the chest is obtained. FINDINGS: Sternotomy changes are seen. Cardiac device noted. No pneumothorax or consolidation. No ov ert failure or pleural effusion. IMPRESSION: No acute process
== END ==
LOC: RADXRMAIN 10:00
PROVIDERS: ATTEND Thoracic Surgery (Cardiothoracic Vascular Surgery)
DX: R07.9 Chest pain, unspecified (principal)
CPT/HCPCS: 71045

== ENCOUNTER 2020-08-05 10:22 | Day surgery (SDC) | payer BC ==
--- NOTE | 2020-08-04 14:05 | P.GSHP ---
History of Present Illness H&P Date: 08/04/20 Chief Complaint: Painful sternal wires This patient is status post CABG in 2013. He has lost a bit of weight and subsequently the upper sternal wires have gotten more prominent and tender. - Constitutional Constitutional: Denies chills, Denies fever - EENT Eyes: denies blurred vision, denies pain Ears, nose, mouth and throat: Denies headache, Denies sore throat - Cardiovascular Cardiovascular: Denies chest pain, Denies shortness of breath - Respiratory Respiratory: Denies cough, Denies 7 - Gastrointestinal Gastrointestinal: Denies abdominal pain, Denies diarrhea, Denies nausea, Denies vomiting - Genitourinary (Female) Genitourinary: Denies dysuria, Denies hematuria - Genitourinary (Male) Genitourinary: Denies dysuria, Denies hematuria - Musculoskeletal Musculoskeletal: Denies myalgias - Integumentary Integumentary: Denies pruritus, Denies rash - Neurological Neurological: Denies numbness, Denies weakness - Psychiatric Psychiatric: Denies anxiety, Denies depression - Endocrine Endocrine: Denies fatigue, Denies weight change Past Medical History Past Medical History: Diabetes Mellitus, Deep Vein Thrombosis (DVT), Hyperlipidemia, Myocardial Infarction ([place]), Vascular Disorder Additional Past Medical History / Comment(s): ANKLE SWELLING (STARTED ON FUROSEMIDE). DEAF IN RIGHT EAR. [place] X7, DVT X6 LEFT LEG, HX KIDNEY STONES, PVD LEFT LEG., HX OF V-TACH, CARDIOMYOPATHY., SEE CARDIOLOGY H & P. Last Myocardial Infarction Date:: 2015 History of Any Multi-Drug Resistant Organisms: None Reported Past Surgical History: AICD, Cardiac Ablation, Cholecystectomy, Coronary Bypass/CABG, Heart Catheterization, Hernia Repair, Pacemaker, Tonsillectomy Additional Past Surgical History / Comment(s): left inguinal hernia, 2013 CABG-4 vessel, PACEMAKER/[employer] Past Anesthesia/Blood Transfusion Reactions: Postoperative Nausea & Vomiting (PONV) Type of Cardiac Device: Permanent Pacemaker, AICD Device Placement Date:: 04/04/2017 Past Psychological History: No Psychological Hx Reported Smoking Status: Former smoker Past Alcohol Use History: None Reported Additional Past Alcohol Use History / Comment(s): Pt started smoking at the age of 18 , SMOKES 1PPD. QUIT 2019. Past Drug Use History: None Reported - Past Family History Mother Family Medical History: No Reported History Additional Family Medical History / Comment(s): Mother is 82 yrs old. Father Family Medical History: CVA/TIA Additional Family Medical History / Comment(s): Father from CVA at the age of 47 yrs. Brother(s) Family Medical History: AICD/Pacemaker Medications and Allergies Home Medications Medication Instructions Recorded Confirmed Type metFORMIN HCL [Glucophage] 1,000 mg PO AC-BID 02/24/15 07/30/20 History Nitroglycerin Sl Tabs [Nitrostat] 0.4 mg SUBLINGUAL Q5M PRN #100 tab 02/21/16 0 07/30/20 Rx Aspirin [Adult Low Dose Aspirin EC] 81 mg PO QAM 03/31/17 07/30/20 History Escitalopram [Lexapro] 10 mg PO QAM 03/31/17 07/30/20 History Rosuvastatin Calcium [Crestor] 40 mg PO QAM 03/31/17 07/30/20 History Carvedilol [Coreg] 25 mg PO BID 06/20/19 07/30/20 History Dulaglutide [Trulicity] 1.5 mg SQ BARBER 06/20/19 07/30/20 History Empagliflozin [Jardiance] 10 mg PO QAM 06/20/19 07/30/20 History Insulin Glargine,Hum.rec.anlog 26 units SQ BID 06/20/19 07/30/20 History [Basaglar Kwikpen U-100] Prasugrel [Effient] 10 mg PO QAM 09/10/19 07/30/20 History Furosemide [Lasix] 40 mg PO QAM 07/30/20 07/30/20 History Allergies Allergy/AdvReac Type Severity Reaction Status Date / Time morphine Allergy Severe Rash/Hives Verified 07/30/20 14:50 Surgical - Exam Osteopathic Statement: *. No significant issues noted on an osteopathic structural exam other than those noted in the History and Physical/Consult. - General well developed, well nourished, no distress - Eyes normal ocular movement, no icteric - ENT no hearing loss, no congestion - Neck no masses, trachea midline - Respiratory normal respiratory effort, clear to auscultation - Abdomen Abdomen: soft, non tender, no guarding, no rigid, no rebound - Integumentary no rash, no abnormal pigmentation - Neurologic no disoriented, no combative - Psychiatric oriented to time, oriented to person, oriented to place, speech is normal, memory intact Tenderness over couple of the more prominent sternal wires Assessment and Plan (1) Protruding sternal wires Status: Acute Code(s): T81.89XA - OTH COMPLICATIONS OF PROCEDURES, NEC, INIT SNOMED Code(s): 282010187 Plan: We have discussed in detail with the patient options and risks. He voices an understanding of the issues involved and his request to have the most tender sternal wires removed.
[~2020-08-05 10:22] MED LIST changes: +DEXAMETHASONE SOD PHOSPHATE 4 MG/ML 1 ML VIAL IV ONE; +LIDOCAINE 1% (10MG/ML) FOR IV START INTRADERMA PRN; -MIDAZOLAM 2 MG/2 ML VIAL ONE; +ONDANSETRON 4 MG/2 ML VIAL IVP ONE; -PROPOFOL 10 MG/ML 20 ML VIAL IV ONE; -SODIUM CHLORIDE 0.9% 1,000 ML IV SCH; -SODIUM CHLORIDE 0.9% 500 ML 500 ML IV ONE
[2020-08-05 10:55] VITALS: TEMP 98
[2020-08-05 11:17] LABS: Glucose,Whole Blood 102 mg/dL (75-99)
[2020-08-05] MEDS ORDERED: MIDAZOLAM 2 MG/2 ML VIAL ONE (11:19)
[2020-08-05] MEDS ORDERED: PROPOFOL 10 MG/ML 20 ML VIAL IV ONE (11:19)
[2020-08-05] MEDS ORDERED: LIDOCAINE 1% INJ 10MG/ML (20 ML MDV) ONE (11:19)
[2020-08-05] MEDS ORDERED: fentaNYL (PF) 50 MCG/ML 2 ML AMP ONE (11:19)
[2020-08-05] MEDS ORDERED: KETAMINE 10 MG/ML 20 ML VIAL ONE (11:19)
[2020-08-05] MEDS ORDERED: BUPIVACAINE (PF) 0.25% 30 ML VIAL SQ ONE (11:36)
--- NOTE | 2020-08-05 11:58 | P.OP ---
Date of Procedure: 08/05/20 Preoperative Diagnosis: Painful sternal wire Postoperative Diagnosis: Same Procedure(s) Performed: Removal of painful sternal wires 3 Anesthesia: MAC Surgeon: Lucian Lo Estimated Blood Loss (ml): 2 Pathology: none sent Condition: stable Disposition: PACU Indications for Procedure: Patient is a number of years post CABG. He developed tenderness and pain after weight loss in the area of the sternal wires. Operative Findings: 1 of the wires was fractured the other 2 were intact. No other abnormalities were seen. Description of Procedure: With the patient spine position, under benefit of IV sedation, we prepped and draped in standard fashion. We anesthetized the area with quarter percent Marcaine. We made a transverse incision directly over the midportion of the manubrium. We took this down to the area of the wires. We then using electrocautery dissected vertically exposing all 3 wires. One was removed without having to cut it aerated the other 2 were cut on one side and removed by traction. Hemostasis was excellent. The wound was irrigated and closed with Vicryl. Sterile dressings were applied. The patient tolerated the procedure well and was taken to recovery room in stable condition.
[2020-08-05 12:18] VITALS: RESP 16
[2020-08-05 12:30] LABS: Glucose,Whole Blood 108 mg/dL (75-99)
[2020-08-05 12:31] VITALS: BP 106/69; PULSE 62
== END 2020-08-05 13:00 | disposition home or self-care (01) ==
LOC: OR 10:22
PROVIDERS: ATTEND Thoracic Surgery (Cardiothoracic Vascular Surgery)
DX: T84.218A Breakdown (mechanical) of internal fixation device of other bones, initial encounter (principal); G89.18 Other acute postprocedural pain; R07.89 Other chest pain; E11.9 Type 2 diabetes mellitus without complications; E78.5 Hyperlipidemia, unspecified; I10 Essential (primary) hypertension; I25.2 Old myocardial infarction; H91.91 Unspecified hearing loss, right ear; I73.9 Peripheral vascular disease, unspecified; I42.9 Cardiomyopathy, unspecified; F32.9 Major depressive disorder, single episode, unspecified; Z79.82 Long term (current) use of aspirin; Z79.4 Long term (current) use of insulin; Z79.899 Other long term (current) drug therapy; Z79.02 Long term (current) use of antithrombotics/antiplatelets; Z88.5 Allergy status to narcotic agent; Z98.890 Other specified postprocedural states; Z95.1 Presence of aortocoronary bypass graft; Z87.828 Personal history of other (healed) physical injury and trauma; Z87.891 Personal history of nicotine dependence; Z86.718 Personal history of other venous thrombosis and embolism; Z87.442 Personal history of urinary calculi; Z86.79 Personal history of other diseases of the circulatory system; Z95.810 Presence of automatic (implantable) cardiac defibrillator; Z90.49 Acquired absence of other specified parts of digestive tract; Z90.89 Acquired absence of other organs; Z91.89 Other specified personal risk factors, not elsewhere classified; Z97.2 Presence of dental prosthetic device (complete) (partial); Z82.3 Family history of stroke
CPT/HCPCS: 20670; J2250; J1100; J0690; J2405; J2001; J3010; J2704

== ENCOUNTER → 2020-12-14 | Outpatient (CLI) | payer BC ==
[2020-12-14 18:57] LABS: Basophils # (A) 0.05 X 10*3/uL (0.00-0.10); Basophils % (A) 0.9 %; Eosinophils # (A) 0.26 X 10*3/uL (0.04-0.35); Eosinophils % (A) 4.8 %; HCT 32.7 % (39.6-50.0); HGB 10.6 g/dL (13.0-17.0); Lymphocytes # (A) 1.11 X 10*3/uL (0.90-5.00); Lymphocytes % (A) 20.4 %; MCH 28.7 pg (27.0-32.0); MCHC 32.4 g/dL (32.0-37.0); MCV 88.6 fL (80.0-97.0); Mean Platelet Volume 11.9 fL (9.5-12.2); Monocytes # (A) 0.42 X 10*3/uL (0.20-1.00); Monocytes % (A) 7.7 %; Platelet Count 158 X 10*3/uL (140-440); RBC 3.69 X 10*6/uL (4.40-5.60); RDW 13.5 % (11.5-14.5); WBC 5.45 X 10*3/uL (4.50-10.00)
== END | disposition home or self-care (01) ==
LOC: LABWHC1 11:42
PROVIDERS: ATTEND Surgery
DX: K40.90 Unilateral inguinal hernia, without obstruction or gangrene, not specified as recurrent (principal)
CPT/HCPCS: 36415; 85025

== ENCOUNTER 2020-12-16 08:25 | Observation (INO) | payer BC ==
[2020-12-14 15:40] VITALS: BMI 26.2
[~2020-12-16 08:25] MED LIST changes: +ACETAMINOPHEN TAB 500 MG TAB PO PRN; -DEXAMETHASONE SOD PHOSPHATE 4 MG/ML 1 ML VIAL IV ONE; +HEPARIN SODIUM,PORCINE/PF 5,000 UNIT/0.5 ML SYRINGE SQ PRN; +HYDROmorphone 0.5 MG/0.5 ML SYRINGE IVP PRN; -LACTATED RINGERS 1,000 ML IV SCH; +MIDAZOLAM 2 MG/2 ML VIAL IV PRN; +SCOPOLAMINE 1.5MG/72HR PATCH TRANSDERM ONE; +fentaNYL (PF) 50 MCG/ML 2 ML AMP IVP PRN
[2020-12-16] MEDS: LACTATED RINGERS 1,000 ML IV SCH ×2 (09:05→15:58)
[2020-12-16 09:07] LABS: Glucose,Whole Blood 124 mg/dL (75-99)
[2020-12-16] MEDS ORDERED: MIDAZOLAM 2 MG/2 ML VIAL IVP ONE (09:37)
--- NOTE | 2020-12-16 10:39 | P.GSHP ---
History of Present Illness H&P Date: 12/16/20 Chief Complaint: left inguinal hernia this 55-year-old male who presents today for laparoscopic robotic-assisted repair of left inguinal hernia. Past Medical History Past Medical History: Coronary Artery Disease (CAD), Diabetes Mellitus, Deep Vein Thrombosis (DVT), Hearing Disorder / Deafness, Hyperlipidemia, Myocardial Infarction ([place]), Vascular Disorder Additional Past Medical History / Comment(s): Edema Lt ankle. Deaf in Rt ear, 30% hearing in Lt. [place] X7, DVT X6 Lt Leg, Hx kidney stones, PVD Lt Leg. Hx of V-Tach, CMP - has AICD/Pacemaker. Lt inguinal hernia Last Myocardial Infarction Date:: 2015 History of Any Multi-Drug Resistant Organisms: None Reported Past Surgical History: AICD, Cardiac Ablation, Cholecystectomy, Coronary Bypass/CABG, Heart Catheterization, Hernia Repair, Pacemaker, Tonsillectomy Additional Past Surgical History / Comment(s): Right inguinal hernia, 2013 CABG- 4 vessel, PACEMAKER/DEFIB-[employer]. Sternal wires, top 3, removed 07/2020 Past Anesthesia/Blood Transfusion Reactions: Postoperative Nausea & Vomiting (PONV) Type of Cardiac Device: Permanent Pacemaker, AICD Device Placement Date:: 04/04/2017 Smoking Status: Former smoker - Past Family History Mother Family Medical History: No Reported History Additional Family Medical History / Comment(s): Mother is 82 yrs old. Father Family Medical History: CVA/TIA Additional Family Medical History / Comment(s): Father from CVA at the age of 47 yrs. Brother(s) Family Medical History: AICD/Pacemaker Medications and Allergies Home Medications Medication Instructions Recorded Confirmed Type metFORMIN HCL [Glucophage] 1,000 mg PO AC-BID 02/24/15 12/16/20 History Nitroglycerin Sl Tabs [Nitrostat] 0.4 mg SUBLINGUAL Q5M PRN #100 tab 02/21/16 12/16/20 Rx Aspirin [Adult Low Dose Aspirin EC] 81 mg PO QAM 03/31/17 12/16/20 History Escitalopram [Lexapro] 10 mg PO QAM 03/31/17 12/16/20 History Rosuvastatin Calcium [Crestor] 40 mg PO QAM 03/31/17 12/16/20 History Carvedilol [Coreg] 25 mg PO BID 06/20/19 12/16/20 History Dulaglutide [Trulicity] 1.5 mg SQ BARBER 06/20/19 12/16/20 History Empagliflozin [Jardiance] 10 mg PO QAM 06/20/19 12/16/20 History Insulin Glargine,Hum.rec.anlog 12 - 18 units SQ BID 06/20/19 12/16/20 History [Basaglar Kwikpen U-100] Furosemide [Lasix] 40 mg PO QAM 07/30/20 12/16/20 History Sacubitril/Valsartan [Entresto 49 1 tab PO BID 12/14/20 12/16/20 History mg-51 mg Tablet] Allergies Allergy/AdvReac Type Severity Reaction Status Date / Time morphine Allergy Severe Rash/Hives Verified 12/16/20 08:47 adhesive tape Allergy Rash/Hives Verified 12/16/20 08:47 Surgical - Exam Vital Signs Temp Pulse Resp BP Pulse Ox 97.5 F L 78 16 118/68 98 12/16/20 08:51 12/16/20 08:51 12/16/20 08:51 12/16/20 08:51 12/16/20 08:51 - General well developed, well nourished, no distress - Eyes PERRL - ENT normal pinna - Neck no masses - Respiratory normal expansion - Cardiovascular Rhythm: regular - Abdomen Abdomen: soft, non tender Hernia: inguinal (left) Results - Labs Abnormal Lab Results - Last 24 Hours (Table) 12/16/20 Range/Units 09:04 POC Glucose (mg/dL) 124 H (75-99) mg/dL Assessment and Plan Assessment: left we will hernia. We'll perform laparoscopic robotic-assisted repair
[2020-12-16] MEDS ORDERED: ROCURONIUM 10 MG/ML (5 ML VIAL) IV ONE (11:10)
[2020-12-16] MEDS ORDERED: KETAMINE 10 MG/ML 20 ML VIAL ONE (11:10)
[2020-12-16] MEDS ORDERED: fentaNYL (PF) 50 MCG/ML 2 ML AMP ONE (11:10)
[2020-12-16] MEDS ORDERED: ETOMIDATE 2 MG/ML 10 ML VIAL ONE (11:10)
[2020-12-16] MEDS ORDERED: HYDROmorphone (PF) 1 MG/ML ONE (11:10)
[2020-12-16] MEDS ORDERED: NEOSTIGMINE 1 MG/ML 10 ML VIAL ONE (11:10)
[2020-12-16] MEDS ORDERED: ROPIVACAINE 5 MG/ML 30 ML VIAL ONE (11:10)
[2020-12-16] MEDS ORDERED: LIDOCAINE 1% INJ 10MG/ML (20 ML MDV) ONE (11:10)
[2020-12-16] MEDS ORDERED: SUCCINYLCHOLINE CHLORIDE 100 MG/5 ML SYR IV ONE (11:10)
[2020-12-16] MEDS ORDERED: KETOROLAC 15 MG/ML 1 ML VIAL ONE (11:10)
[2020-12-16] MEDS ORDERED: PHENYLEPHRINE-0.9% NACL SYG 1,000 MCG/10 ML SYRINGE ONE (11:10)
[2020-12-16] MEDS ORDERED: LIDOCAINE 1%-EPI 1:100,000 20 ML VIAL ONE (11:10)
[2020-12-16] MEDS ORDERED: GLYCOPYRROLATE 0.2 MG/ML 2 ML VIAL ONE (11:10)
[2020-12-16] MEDS ORDERED: BUPIVACAINE (PF) 0.25% 30 ML VIAL SQ ONE (11:33)
[2020-12-16 13:05] LABS: Glucose,Whole Blood 261 mg/dL (75-99)
[2020-12-16] MEDS ORDERED: ATROPINE SULFATE 0.1 MG/ML 10ML SYRINGE ONE (13:10)
[2020-12-16] MEDS ORDERED: ATROPINE SULFATE 0.1 MG/ML 10ML SYRINGE IV ONE (13:13)
[2020-12-16] MEDS ORDERED: HYDROmorphone 1 MG/ML 1 ML SYRINGE IVP PRN (14:19)
[2020-12-16] MEDS ORDERED: HYDROcodone/APAP 5-325MG 1 EACH TAB PO PRN (14:19)
[2020-12-16] MEDS ORDERED: ONDANSETRON 4 MG/2 ML VIAL IVP PRN (14:19)
--- NOTE | 2020-12-16 14:41 | P.CRDCN ---
History of Present Illness History of present illness: HISTORY OF PRESENTING ILLNESS This is a pleasant 55-year-old male past medical history significant for coronary artery disease s/p bypass grafting with BURNHAM-LAD, SVG-OM, PDA, diagonal branch, ischemic cardiomyopathy s/p AICD ([employer]), [place] s/p ablation, hypertension, dyslipidemia, peripheral vascular disease and former nicotine dependence. He follows in the office with Dr. Freedman. We have been asked to see in consultation for bradycardia. He was brought to the hospital per Dr. Dodson for elective inguinal hernia repair. During the procedure per anesthesia the patients heart rate was 20. There is no telemetry strips of this as their machine does not print strips. Again while in recovery room he was having episodes of bradycardia. EKG obtained revealed a paced rhythm heart rate of 45. Prior to that EKG the nurse gave atropine for a visualized heart rate of 35. Review of telemetry strips reveals he is sinus bradycardia with PVC's, heart rate in the mid 40's. Preoperative CBC reviewed, unremarkable. Current blood pressure is 76/51 with a heart rate of 60. Patient is quite lethargic still from sedation and not answering questions appropriately. His eyes are open and he is nodding his head yes to every question. Most recent echocardiogram obtained in the office October 2019 revealed severely impaired LV systolic function with ejection fraction 24%, mild to moderate aortic regurgitation, mild to moderate mitral regurgitation, mild to moderate tricuspid regurgitation and mild pulmonary hypertension with an RVSP of 45 mmHg. Current daily cardiac medications include entresto 49/51 mg twice a day, rosuvastatin 40 mg daily, Lasix 40 mg daily, carvedilol 25 mg twice a day and aspirin 81 mg daily. REVIEW OF SYSTEMS At the time of my exam: Unable to obtain an accurate review of systems due to anesthesia. PHYSICAL EXAMINATION Blood pressure 76/51 heart rate 60 afebrile and maintaining oxygen saturation on simple mask. CONSTITUTIONAL: No apparent distress. HEENT: Head is normocephalic. Pupils are equal, round. Sclerae anicteric. Mucous membranes of the mouth are moist. No JVD. No carotid bruit. CHEST EXAMINATION: Lungs are clear to auscultation. No chest wall tenderness is noted on palpation or with deep breathing. HEART EXAMINATION: Regular rate and rhythm. S1, S2 heard. Systolic ejection murmur at the base, no gallops or rub. ABDOMEN: Soft, nontender. Positive bowel sounds. EXTREMITIES: 2+ peripheral pulses, no lower extremity edema and no calf tenderness. NEUROLOGIC EXAMINATION: Patient is coming out of sedation, opening eyes and nodding his head, not answering questions appropriately. ASSESSMENT Sinus bradycardia s/p inguinal hernia repair Ischemic cardiomyopathy s/p AICD Chronic systolic heart failure Coronary artery disease s/p bypass grafting History of [place] s/p ablation Hypertension Dyslipidemia Diabetes mellitus Former nicotine dependence PLAN Interrogate device. It appears he has a low rate setting of 40 bpm. Even if the magnet was in place during the procedure his back-up pacemaker should have been working. We will review the interrogation. Recommend overnight observation on 6N. Further recommendations will be forthcoming after Dr. Hines evaluates the patient this afternoon. Cautious fluid administration. Currently he is euvolemic. Thank you kindly for this consultation. Nurse Practitioner note has been reviewed, I agree with a documented findings and plan of care. Patient was seen and examined. Past Medical History Past Medical History: Coronary Artery Disease (CAD), Diabetes Mellitus, Deep Vein Thrombosis (DVT), Hearing Disorder / Deafness, Hyperlipidemia, Myocardial Infarction ([place]), Vascular Disorder Additional Past Medical History / Comment(s): Edema Lt ankle. Deaf in Rt ear, 30% hearing in Lt. [place] X7, DVT X6 Lt Leg, Hx kidney stones, PVD Lt Leg. Hx of V-Tach, CMP - has AICD/Pacemaker. Lt inguinal hernia Last Myocardial Infarction Date:: 2015 History of Any Multi-Drug Resistant Organisms: None Reported Past Surgical History: AICD, Cardiac Ablation, Cholecystectomy, Coronary Bypass/CABG, Heart Catheterization, Hernia Repair, Pacemaker, Tonsillectomy Additional Past Surgical History / Comment(s): Right inguinal hernia, 2013 CABG- 4 vessel, PACEMAKER/DEFIB-[employer]. Sternal wires, top 3, removed 07/2020 Past Anesthesia/Blood Transfusion Reactions: Postoperative Nausea & Vomiting (PONV) Type of Cardiac Device: Permanent Pacemaker, AICD Device Placement Date:: 04/04/2017 Smoking Status: Former smoker - Past Family History Mother Family Medical History: No Reported History Additional Family Medical History / Comment(s): Mother is 82 yrs old. Father Family Medical History: CVA/TIA Additional Family Medical History / Comment(s): Father from CVA at the age of 47 yrs. Brother(s) Family Medical History: AICD/Pacemaker Medications and Allergies Home Medications Medication Instructions Recorded Confirmed Type metFORMIN HCL [Glucophage] 1,000 mg PO AC-BID 02/24/15 12/16/20 History Nitroglycerin Sl Tabs [Nitrostat] 0.4 mg SUBLINGUAL Q5M PRN #100 tab 02/21/16 12/16/20 Rx Aspirin [Adult Low Dose Aspirin EC] 81 mg PO QAM 03/31/17 12/16/20 History Escitalopram [Lexapro] 10 mg PO QAM 03/31/17 12/16/20 History Rosuvastatin Calcium [Crestor] 40 mg PO QAM 03/31/17 12/16/20 History Carvedilol [Coreg] 25 mg PO BID 06/20/19 12/16/20 History Dulaglutide [Trulicity] 1.5 mg SQ BARBER 06/20/19 12/16/20 History Empagliflozin [Jardiance] 10 mg PO QAM 06/20/19 12/16/20 History Insulin Glargine,Hum.rec.anlog 12 - 18 units SQ BID 06/20/19 12/16/20 History [Basaglar Kwikpen U-100] Furosemide [Lasix] 40 mg PO QAM 07/30/20 12/16/20 History Sacubitril/Valsartan [Entresto 49 1 tab PO BID 12/14/20 12/16/20 History mg-51 mg Tablet] Acetaminophen Tab [Tylenol] 650 mg PO Q6H #30 tab 12/16/20 Rx Docusate [Colace] 100 mg PO BID #20 capsule 12/16/20 Rx Ibuprofen [Motrin] 600 mg PO Q6HR PRN #40 tab 12/16/20 Rx oxyCODONE HCL [OxyIR] 5 mg PO Q6H PRN 3 Days #10 tab 12/16/20 Rx Allergies Allergy/AdvReac Type Severity Reaction Status Date / Time morphine Allergy Severe Rash/Hives Verified 12/16/20 08:47 adhesive tape Allergy Rash/Hives Verified 12/16/20 08:47 Physical Exam Vitals: Vital Signs Temp Pulse Resp BP Pulse Ox 12/16/20 12:40 97.1 F L 64 14 118/67 98 12/16/20 09:50 70 15 119/82 100 12/16/20 08:51 97.5 F L 78 16 118/68 98 Intake and Output 12/15/20 12/16/20 12/16/20 22:59 06:59 14:59 Intake Total 2049 Output Total 10 Balance 2039 Intake: IV 2049 Output: Estimated Blood Loss 10 Other: Weight 85.321 kg Results Current Medications Generic Name Dose Route Start Last Admin Trade Name Monica PRN Reason Stop Dose Admin Fentanyl Citrate 50 mcg 12/16/20 07:00 Fentanyl (Pf) 50 Mcg/Ml 2 Ml Amp IVP 12/16/20 23:00 Q3M PRN Pain Control Hydromorphone HCl 0.5 mg 12/16/20 07:00 Hydromorphone 0.5 Mg/0.5 Ml Syringe IVP 12/16/20 23:00 Q5M PRN Pain Control Lactated Ringer's 1,000 mls @ 20 mls/hr 12/16/20 07:00 12/16/20 09:05 Lactated Ringers IV 01/15/21 07:01 2,000 mls .Q24H ASHLEY Administration Lidocaine HCl 0.1 ml 12/16/20 07:00 12/16/20 09:04 Lidocaine 1% (10mg/Ml) For Iv Start INTRADERMA 01/15/21 07:01 0.1 ml PER PROTOCOL PRN Administration IV Start Midazolam HCl 2 mg 12/16/20 07:00 Midazolam 2 Mg/2 Ml Vial IV 12/16/20 23:00 ONCE PRN Anxiety Intake and Output 12/15/20 12/16/20 12/16/20 22:59 06:59 14:59 Intake Total 2049 Output Total 10 Balance 2039 Intake: IV 2049 Output: Estimated Blood Loss 10 Other: Weight 85.321 kg Patient Weight 12/17/20 06:59 Weight 85.321 kg
[2020-12-16 15:24] LABS: Glucose,Whole Blood 112 mg/dL (75-99)
[2020-12-16 16:28] LABS: Calcium 8.7 mg/dL (8.4-10.2); Magnesium 1.9 mg/dL (1.6-2.3); Potassium 5.5 mmol/L (3.5-5.1)
--- NOTE | 2020-12-16 17:06 | ECHOF ---
Referral Reason:cardiomyopathy MEASUREMENTS -------- HEIGHT: 177.8 cm WEIGHT: 85.3 kg BP: 79/52 RVIDd: 5.2 cm (< 3.3) IVSd: 1.2 cm (0.6 - 1.1) LVIDd: 6.0 cm (3.9 - 5.3) LVPWd: 1.3 cm (0.6 - 1.1) IVSs: 1.3 cm LVIDs: 5.7 cm LVPWs: 1.4 cm LAESV Index (A-L): 76.82 ml/m Ao Diam: 3.6 cm (2.0 - 3.7) AV Cusp: 0.8 cm (1.5 - 2.6) MV EXCURSION: 13.946 mm (> 18.000) MV EF SLOPE: 50 mm/s (70 - 150) EPSS: 2.9 cm AV maxP.30 mmHg AV meanP.10 mmHg RAP: 5.00 mmHg RVSP: 47.43 mmHg FINDINGS -------- This was a technically difficult study with suboptimal apical views. The left ventricle is mildly dilated. There is borderline concentric left ventricular hypertrophy. There is severe global hypokinesis of LV . Overall left ventricular systolic function is severely impaired with, an EF < 20%. The right ventricle is moderate to severely enlarged. LA is severely dilated >40 ml/m2 The right atrium is mildly enlarged. Electronic pacemaker lead seen in the right atrial cavity. 5.0mg of Lumason was utilized for enhancement of images Interatrial and interventricular septum intact. There is moderate aortic valve sclerosis. Trace amount of aortic regurgitation. There is mild ao rtic stenosis present. Peak/mean gradient across the Aortic Valve is 26.30mmHg / 16.10mmHg. Moderate mitral regurgitation is present. Moderate tricuspid regurgitation present. There is moderate pulmonary hypertension. The right rhett tricular systolic pressure, as measured by Doppler, is 47.43mmHg. There is no pulmonic regurgitation present. The aortic root size is normal. IVC Not well visulized. There is no pericardial effusion. CONCLUSIONS -------- 1. The left ventricle is mildly dilated. 2. There is borderline concentric left ventricular hypertrophy. 3. There is severe global hypokinesis of LV . 4. Overall left ventricular systolic function is severely impaired with, an EF < 20%. 5. The right ventricle is moderate to severely enlarged. 6. LA is severely dilated >40 ml/m2 7. The right atrium is mildly enlarged. 8. There is moderate aortic valve sclerosis. 9. Trace amount of aortic regurgitation. 10. There is mild aortic stenosis present. 11. Peak/mean gradient across the Aortic Valve is 26.30mmHg / 16.10mmHg. 12. Moderate mitral regurgitation is present. 13. Moderate tricuspid regurgitation present. 14. There is moderate pulmonary hypertension. 15. The right ventricular systolic pressure, as measured by Doppler, is 47.43mmHg. STATUS CONTROLLER: Farzaneh Villagomez RDCS
[2020-12-16 17:35] LABS: Glucose,Whole Blood 71 mg/dL (75-99)
[2020-12-16 20:17] LABS: Glucose,Whole Blood 88 mg/dL (75-99)
[2020-12-17] MEDS: LACTATED RINGERS 1,000 ML IV SCH ×3 (03:22→09:39)
[2020-12-17 07:16] LABS: Glucose,Whole Blood 156 mg/dL (75-99)
[2020-12-17 08:59] LABS: Basophils % (A) 0 %; Eosinophils # (A) 0.2 k/uL (0-0.7); Eosinophils % (A) 4 %; HGB 9.6 gm/dL (13.0-17.5); Lymphocytes # (A) 0.4 k/uL (1.0-4.8); Lymphocytes % (A) 8 %; MCH 29.6 pg (25.0-35.0); MCHC 33.2 g/dL (31.0-37.0); MCV 89.3 fL (80.0-100.0); Mean Platelet Volume 8.9; Monocytes # (A) 0.3 k/uL (0-1.0); Monocytes % (A) 5 %; Neutrophils # (A) 3.8 k/uL (1.3-7.7); Neutrophils % (A) 80 %; Platelet Count 121 k/uL (150-450); RBC 3.25 m/uL (4.30-5.90); WBC 4.7 k/uL (3.8-10.6)
[2020-12-17] MEDS ORDERED: SACUBITRIL/VALSARTAN 49 MG-51 MG TABLET PO SCH (09:00)
[2020-12-17 09:03] LABS: African American GFR (CKD) 16 (>60 ml/min/1.73 sqM); Anion Gap 5 mmol/L; Blood Urea Nitrogen 85 mg/dL (9-20); Calcium 9.2 mg/dL (8.4-10.2); Carbon Dioxide 22 mmol/L (22-30); Chloride 112 mmol/L (98-107); Glucose 132 mg/dL (74-99); Non-African American GFR(CKD) 14 (>60 ml/min/1.73 sqM); Potassium 5.3 mmol/L (3.5-5.1); Sodium 139 mmol/L (137-145)
[2020-12-17] MEDS: carvediloL 12.5 MG TAB PO SCH ×2 (09:38→17:16)
[2020-12-17] MEDS: ATORVASTATIN 80 MG TAB PO SCH (09:38)
[2020-12-17 11:51] LABS: Glucose,Whole Blood 158 mg/dL (75-99)
[2020-12-17] MEDS: SODIUM CHLORIDE 0.9% 1,000 ML IV SCH (11:58)
--- NOTE | 2020-12-17 12:11 | P.PN ---
Subjective HISTORY OF PRESENTING ILLNESS This is a pleasant 55-year-old male past medical history significant for coronary artery disease s/p bypass grafting with BURNHAM-LAD, SVG-OM, PDA, diagonal branch, ischemic cardiomyopathy s/p AICD ([employer]), [place] s/p ablation, hypertension, dyslipidemia, peripheral vascular disease and former nicotine dependence. He follows in the office with Dr. Freedman. We have been asked to see in consultation for bradycardia. He was brought to the hospital per Dr. Dodson for elective inguinal hernia repair. During the procedure per anesthesia the patients heart rate was 20. There is no telemetry strips of this as their machine does not print strips. Again while in recovery room he was having episodes of bradycardia. EKG obtained revealed a paced rhythm heart rate of 45. Prior to that EKG the nurse gave atropine for a visualized heart rate of 35. Review of telemetry strips reveals he is sinus bradycardia with PVC's, heart rate in the mid 40's. Preoperative CBC reviewed, unremarkable. Current blood pressure is 76/51 with a heart rate of 60. Patient is quite lethargic still from sedation and not answering questions appropriately. His eyes are open and he is nodding his head yes to every question. Most recent echocardiogram obtained in the office October 2019 revealed severely impaired LV systolic function with ejection fraction 24%, mild to moderate aortic regurgitation, mild to moderate mitral regurgitation, mild to moderate tricuspid regurgitation and mild pulmonary hypertension with an RVSP of 45 mmHg. Current daily cardiac medications include entresto 49/51 mg twice a day, rosuvastatin 40 mg daily, Lasix 40 mg daily, carvedilol 25 mg twice a day and aspirin 81 mg daily. 12/17/2020 Patient seen and examined resting comfortably in no acute distress. Telemetry tracings reviewed, he continues to maintain sinus mechanism with no significant bradycardia or arrhythmias. Blood pressure 124/76 heart rate 82 afebrile maintaining oxygen saturation on room air. Laboratory data reviewed, WBC 4.7, hemoglobin 9.6, platelets 121, sodium 139, potassium 5.3, creatinine 4.36, magnesium 1.9 and TSH 2.23. Echocardiogram obtained revealed severely impaired LV systolic function with ejection fraction less than 20%, mild aortic stenosis with a mean gradient of 16 mmHg, moderate MR and moderate TR, moderate pulmonary hypertension with an RVSP of 47 mmHg. Device interrogation was never completed yesterday. PHYSICAL EXAMINATION CONSTITUTIONAL: No apparent distress. HEENT: Head is normocephalic. Pupils are equal, round. Sclerae anicteric. Mucous membranes of the mouth are moist. No JVD. No carotid bruit. CHEST EXAMINATION: Lungs are clear to auscultation. No chest wall tenderness is noted on palpation or with deep breathing. HEART EXAMINATION: Regular rate and rhythm. S1, S2 heard. Systolic ejection murmur at the base, no gallops or rub. EXTREMITIES: 2+ peripheral pulses, no lower extremity edema and no calf tenderness. ASSESSMENT Sinus bradycardia Acute on chronic kidney disease Hyperkalemia s/p inguinal hernia repair Ischemic cardiomyopathy s/p AICD Chronic systolic heart failure Coronary artery disease s/p bypass grafting History of [place] s/p ablation Hypertension Dyslipidemia Diabetes mellitus Former nicotine dependence PLAN Interrogate device. Hold Entresto secondary to renal failure pending nephrology evaluation. Repeat BMP in the morning. Further recommendations to follow based on clinical course. Nurse Practitioner note has been reviewed, I agree with a documented findings and plan of care. Patient was seen and examined. Objective - Vital Signs Vital signs: Vital Signs Temp 99.1 F 12/17/20 07:00 Pulse 82 12/17/20 07:00 Resp 16 12/17/20 07:00 BP 124/76 12/17/20 07:00 Pulse Ox 98 12/17/20 07:00 Intake & Output 12/16/20 12/17/20 12/17/20 18:59 06:59 18:59 Intake Total 2069 Output Total 10 Balance 2059 Weight 85.321 kg Intake: IV 2069 Output: Estimated Blood Loss 10 Other: Voiding Method Toilet Urinal # Voids 1 - Labs CBC & Chem 7: 12/17/20 07:56 12/17/20 07:56 Labs: Abnormal Lab Results - Last 24 Hours (Table) 12/16/20 12/16/20 12/16/20 Range/Units 13:03 15:22 15:54 RBC (4.30-5.90) m/uL Hgb (13.0-17.5) gm/dL Hct (39.0-53.0) % Plt Count (150-450) k/uL Lymphocytes # (1.0-4.8) k/uL Potassium 5.5 H (3.5-5.1) mmol/L Chloride 114 H (98-107) mmol/L BUN 90 H (9-20) mg/dL Creatinine 3.80 H (0.66-1.25) mg/dL Glucose 100 H (74-99) mg/dL POC Glucose (mg/dL) 261 H 112 H (75-99) mg/dL 12/16/20 12/17/20 12/17/20 Range/Units 17:33 07:15 07:56 RBC (4.30-5.90) m/uL Hgb (13.0-17.5) gm/dL Hct (39.0-53.0) % Plt Count (150-450) k/uL Lymphocytes # (1.0-4.8) k/uL Potassium 5.3 H (3.5-5.1) mmol/L Chloride 112 H (98-107) mmol/L BUN 85 H (9-20) mg/dL Creatinine 4.36 H (0.66-1.25) mg/dL Glucose 132 H (74-99) mg/dL POC Glucose (mg/dL) 71 L 156 H (75-99) mg/dL 12/17/20 12/17/20 Range/Units 07:56 11:50 RBC 3.25 L (4.30-5.90) m/uL Hgb 9.6 L (13.0-17.5) gm/dL Hct 29.0 L (39.0-53.0) % Plt Count 121 L (150-450) k/uL Lymphocytes # 0.4 L (1.0-4.8) k/uL Potassium (3.5-5.1) mmol/L Chloride (98-107) mmol/L BUN (9-20) mg/dL Creatinine (0.66-1.25) mg/dL Glucose (74-99) mg/dL POC Glucose (mg/dL) 158 H (75-99) mg/dL
--- NOTE | 2020-12-17 13:03 | P.PN ---
Subjective Progress Note Date: 12/17/20 CHIEF COMPLAINT: Inguinal hernia HISTORY OF PRESENT ILLNESS: Patient is postop day #1 status post robotic- assisted laparoscopic bilateral inguinal hernia repair with mesh. Apparently postoperatively patient had bradycardia. He's been evaluated by cardiology. And his AICD device is to be interrogated. Patient has evidence of acute renal failure with creatinine up to 4.36 also hyperkalemia. Nephrology is on consult. Patient reports that his pain is controlled. Denies any nausea or vomiting. Tolerating regular diet. Denies any flatus or BM. Afebrile. WBC 4.7 hemoglobin 9.6 platelets 121 sodium 139 potassium 5.3 creatinine 4.36 PHYSICAL EXAM: VITAL SIGNS: Reviewed. GENERAL: Well-developed in no acute distress. HEENT: No sclera icterus. Extraocular movements grossly intact. Moist buccal mucosa. Head is atraumatic, normocephalic. ABDOMEN: Soft. Nondistended. Incision sites clean dry and intact NEUROLOGIC: Alert and oriented. Cranial nerves II through XII grossly intact. ASSESSMENT: 1. Status post robotic-assisted laparoscopic bilateral inguinal hernia repair with mesh PLAN: -Continue cardiac workup for bradycardia -Continue pain medication as needed -Discussed with nursing staff to change the attending to Dr. Hernandez and Dr. Dodson will be on consult Physician Vp Cardiovascular note has been reviewed by physician. Signing provider agrees with the documented findings, assessment, and plan of care. Objective - Vital Signs Vital signs: Vital Signs Temp 99.1 F 12/17/20 07:00 Pulse 82 12/17/20 07:00 Resp 16 12/17/20 07:00 BP 124/76 12/17/20 07:00 Pulse Ox 98 12/17/20 07:00 Intake & Output 12/16/20 12/17/20 12/17/20 18:59 06:59 18:59 Intake Total 2069 Output Total 10 Balance 2059 Weight 85.321 kg Intake: IV 2069 Output: Estimated Blood Loss 10 Other: Voiding Method Toilet Urinal # Voids 1 - Labs CBC & Chem 7: 12/17/20 07:56 12/17/20 07:56 Labs: Abnormal Lab Results - Last 24 Hours (Table) 12/16/20 12/16/20 12/16/20 Range/Units 13:03 15:22 15:54 RBC (4.30-5.90) m/uL Hgb (13.0-17.5) gm/dL Hct (39.0-53.0) % Plt Count (150-450) k/uL Lymphocytes # (1.0-4.8) k/uL Potassium 5.5 H (3.5-5.1) mmol/L Chloride 114 H (98-107) mmol/L BUN 90 H (9-20) mg/dL Creatinine 3.80 H (0.66-1.25) mg/dL Glucose 100 H (74-99) mg/dL POC Glucose (mg/dL) 261 H 112 H (75-99) mg/dL 12/16/20 12/17/20 12/17/20 Range/Units 17:33 07:15 07:56 RBC (4.30-5.90) m/uL Hgb (13.0-17.5) gm/dL Hct (39.0-53.0) % Plt Count (150-450) k/uL Lymphocytes # (1.0-4.8) k/uL Potassium 5.3 H (3.5-5.1) mmol/L Chloride 112 H (98-107) mmol/L BUN 85 H (9-20) mg/dL Creatinine 4.36 H (0.66-1.25) mg/dL Glucose 132 H (74-99) mg/dL POC Glucose (mg/dL) 71 L 156 H (75-99) mg/dL 12/17/20 12/17/20 Range/Units 07:56 11:50 RBC 3.25 L (4.30-5.90) m/uL Hgb 9.6 L (13.0-17.5) gm/dL Hct 29.0 L (39.0-53.0) % Plt Count 121 L (150-450) k/uL Lymphocytes # 0.4 L (1.0-4.8) k/uL Potassium (3.5-5.1) mmol/L Chloride (98-107) mmol/L BUN (9-20) mg/dL Creatinine (0.66-1.25) mg/dL Glucose (74-99) mg/dL POC Glucose (mg/dL) 158 H (75-99) mg/dL
--- NOTE | 2020-12-17 16:02 | P.CONS ---
History of Present Illness - Reason for Consult Consult date: 12/17/20 Medical management Requesting physician: Manuel Dodson - Chief Complaint Inguinal hernia repair - History of Present Illness This is a 55-year-old gentleman with past medical history of CAD, CABG, CHF, ischemic cardiomyopathy, EF 24%, diabetes mellitus, chronic DVT, hypertension, hyperlipidemia, ongoing nicotine dependence and multiple other medical issues, status post robotic-assisted laparoscopic bilateral inguinal hernia repair. Pain controlled. Ambulating, tolerated exertion well. Denies passing flatus or bowel movement. Evaluated by cardiology, interrogation of AICD pending. Per cardiology, Intra and postop developed bradycardia, required atropine, hypote nsion. Worsening renal function up to 4.36, nephrology consulted. Denies chest pain, palpitations or shortness of breath. Maintaining O2 sats in the 90s on room air. T-max 99.4, WBC 4.7. Consuming 50% of diet intake with no nausea or vomiting. Blood sugars controlled. Telemetry currently sinus, blood pressure stable. Hemoglobin 9.6, platelets 120. Echocardiogram completed yesterday reporting severely impaired LV function, EF less than 20%, moderate aortic valve sclerosis moderate mitral regurgitation, moderate tricuspid regurgitation, moderate pulmonary hypertension. Review of Systems ROS Statement: Those systems with pertinent positive or pertinent negative responses have been documented in the HPI. ROS Other: All systems not noted in ROS Statement are negative. Past Medical History Past Medical History: Coronary Artery Disease (CAD), Diabetes Mellitus, Deep Vein Thrombosis (DVT), Hearing Disorder / Deafness, Hyperlipidemia, Myocardial Infarction ([place]), Vascular Disorder Additional Past Medical History / Comment(s): Edema Lt ankle. Deaf in Rt ear, 30% hearing in Lt. [place] X7, DVT X6 Lt Leg, Hx kidney stones, PVD Lt Leg. Hx of V-Tach, CMP - has AICD/Pacemaker. Lt inguinal hernia Last Myocardial Infarction Date:: 2015 History of Any Multi-Drug Resistant Organisms: None Reported Past Surgical History: AICD, Cardiac Ablation, Cholecystectomy, Coronary Bypass/CABG, Heart Catheterization, Hernia Repair, Pacemaker, Tonsillectomy Additional Past Surgical History / Comment(s): Right inguinal hernia, 2013 CABG- 4 vessel, PACEMAKER/DEFIB-[employer]. Sternal wires, top 3, removed 07/2020 Past Anesthesia/Blood Transfusion Reactions: Postoperative Nausea & Vomiting (PONV) Type of Cardiac Device: Permanent Pacemaker, AICD Device Placement Date:: 04/04/2017 Past Psychological History: No Psychological Hx Reported Additional Psychological History / Comment(s): . Smoking Status: Current every day smoker Past Alcohol Use History: None Reported Additional Past Alcohol Use History / Comment(s): Pt started smoking at the age of 18 , SMOKES 1PPD. QUIT 2019. Past Drug Use History: None Reported - Past Family History Mother Family Medical History: No Reported History Additional Family Medical History / Comment(s): Mother is 82 yrs old. Father Family Medical History: CVA/TIA Additional Family Medical History / Comment(s): Father from CVA at the age of 47 yrs. Brother(s) Family Medical History: AICD/Pacemaker Medications and Allergies Home Medications Medication Instructions Recorded Confirmed Type metFORMIN HCL [Glucophage] 1,000 mg PO AC-BID 02/24/15 12/16/20 History Nitroglycerin Sl Tabs [Nitrostat] 0.4 mg SUBLINGUAL Q5M PRN #100 tab 02/21/16 12/16/20 Rx Aspirin [Adult Low Dose Aspirin EC] 81 mg PO QAM 03/31/17 12/16/20 History Escitalopram [Lexapro] 10 mg PO QAM 03/31/17 12/16/20 History Rosuvastatin Calcium [Crestor] 40 mg PO QAM 03/31/17 12/16/20 History Carvedilol [Coreg] 25 mg PO BID 06/20/19 12/16/20 History Dulaglutide [Trulicity] 1.5 mg SQ BARBER 06/20/19 12/16/20 History Empagliflozin [Jardiance] 10 mg PO QAM 06/20/19 12/16/20 History Insulin Glargine,Hum.rec.anlog 12 - 18 units SQ BID 06/20/19 12/16/20 History [Basaglar Kwikpen U-100] Furosemide [Lasix] 40 mg PO QAM 07/30/20 12/16/20 History Sacubitril/Valsartan [Entresto 49 1 tab PO BID 12/14/20 12/16/20 History mg-51 mg Tablet] Acetaminophen Tab [Tylenol] 650 mg PO Q6H #30 tab 12/16/20 Rx Docusate [Colace] 100 mg PO BID #20 capsule 12/16/20 Rx Ibuprofen [Motrin] 600 mg PO Q6HR PRN #40 tab 12/16/20 Rx oxyCODONE HCL [OxyIR] 5 mg PO Q6H PRN 3 Days #10 tab 12/16/20 Rx Allergies Allergy/AdvReac Type Severity Reaction Status Date / Time morphine Allergy Severe Rash/Hives Verified 12/16/20 08:47 adhesive tape Allergy Rash/Hives Verified 12/16/20 08:47 Physical Exam Vitals: Vital Signs Temp Pulse Pulse Pulse Resp BP BP 12/17/20 07:00 99.1 F 82 16 124/76 12/17/20 02:00 99.4 F 88 16 109/72 12/16/20 19:10 98.9 F 71 16 110/70 12/16/20 17:15 66 113/76 12/16/20 16:15 67 105/72 12/16/20 15:45 57 L 91/65 12/16/20 15:19 57 L 16 89/59 12/16/20 15:04 60 16 89/62 12/16/20 14:30 59 L 16 78/53 12/16/20 14:15 58 L 14 79/51 12/16/20 14:00 60 14 77/51 12/16/20 13:45 61 14 81/52 12/16/20 13:30 60 14 76/51 12/16/20 13:21 48 L 14 81/54 12/16/20 13:17 58 L 14 93/52 12/16/20 13:06 46 L 14 82/49 12/16/20 13:00 44 L 14 80/62 12/16/20 12:40 97.1 F L 64 14 118/67 Pulse Ox 12/17/20 07:00 98 12/17/20 02:00 95 12/16/20 19:10 96 12/16/20 17:15 98 12/16/20 16:15 94 L 12/16/20 15:45 96 12/16/20 15:19 95 12/16/20 15:04 95 12/16/20 14:30 95 12/16/20 14:15 96 12/16/20 14:00 100 12/16/20 13:45 100 12/16/20 13:30 100 12/16/20 13:21 96 12/16/20 13:17 96 12/16/20 13:06 98 12/16/20 13:00 98 12/16/20 12:40 98 Intake and Output 12/16/20 12/17/20 12/17/20 22:59 06:59 14:59 Other: Voiding Method Toilet Toilet Urinal Urinal # Voids 1 1 Weight 85.321 kg PHYSICAL EXAM: VITAL SIGNS: As above GENERAL: Sitting up at side of bed, no acute distress HEENT: Conjunctivae normal. eyes normal. Oral mucosa moist NECK: No JVD. No thyroid enlargement. No LNs CARDIOVASCULAR: S1, S2 regular. Systolic murmur RESPIRATION: Breath sounds diminished in the bases. No rhonchi or crackles. No bronchial breathing. ABDOMEN: Soft, status post surgery No guarding. no masses palpable. No ascites, No hepatosplenomegaly.Bowel sounds heard. LEGS: No edema. no swelling PSYCHIATRY: Alert and oriented X3, mood and affect normal. NERVOUS SYSTEM: Cranial N 2-12 grossly normal. Moves all 4 limbs. No focal deficits. Strength and sensation grossly intact.. Skin: no lesions, no rash Lymphatic system. No LN neck axilla. Results CBC & Chem 7: 12/17/20 07:56 12/17/20 07:56 Labs: Abnormal Lab Results - Last 24 Hours (Table) 12/16/20 12/16/20 12/16/20 Range/Units 13:03 15:22 15:54 RBC (4.30-5.90) m/uL Hgb (13.0-17.5) gm/dL Hct (39.0-53.0) % Plt Count (150-450) k/uL Lymphocytes # (1.0-4.8) k/uL Potassium 5.5 H (3.5-5.1) mmol/L Chloride 114 H (98-107) mmol/L BUN 90 H (9-20) mg/dL Creatinine 3.80 H (0.66-1.25) mg/dL Glucose 100 H (74-99) mg/dL POC Glucose (mg/dL) 261 H 112 H (75-99) mg/dL 12/16/20 12/17/20 12/17/20 Range/Units 17:33 07:15 07:56 RBC (4.30-5.90) m/uL Hgb (13.0-17.5) gm/dL Hct (39.0-53.0) % Plt Count (150-450) k/uL Lymphocytes # (1.0-4.8) k/uL Potassium 5.3 H (3.5-5.1) mmol/L Chloride 112 H (98-107) mmol/L BUN 85 H (9-20) mg/dL Creatinine 4.36 H (0.66-1.25) mg/dL Glucose 132 H (74-99) mg/dL POC Glucose (mg/dL) 71 L 156 H (75-99) mg/dL 12/17/20 Range/Units 07:56 RBC 3.25 L (4.30-5.90) m/uL Hgb 9.6 L (13.0-17.5) gm/dL Hct 29.0 L (39.0-53.0) % Plt Count 121 L (150-450) k/uL Lymphocytes # 0.4 L (1.0-4.8) k/uL Potassium (3.5-5.1) mmol/L Chloride (98-107) mmol/L BUN (9-20) mg/dL Creatinine (0.66-1.25) mg/dL Glucose (74-99) mg/dL POC Glucose (mg/dL) (75-99) mg/dL Assessment and Plan Assessment: Status post laparoscopic bilateral inguinal hernia repair Sinus bradycardia with hypotension intra & postoperative Acute on chronic renal failure, stage IV, baseline around 3 Hyperkalemia secondary to the above CAD, [place], CABG Chronic CHF, systolic Ischemic cardiomyopathy with AICD, EF less than 20% Moderate pulmonary hypertension,RVSP 47 History of VT, status post ablation Diabetes mellitus Chronic DVT Hypertension Hyperlipidemia Plan: Continue on current medication regime ,monitoring and symptomatic treatment. Interrogation of pacemaker pending. Gentle IV fluid hydration initiated in a patient with history of CHF. Nephrology consulted regarding worsening renal function. Close monitoring of hemoglobin, platelets, renal function, electrolytes with repeat labs ordered for a.m. Prognosis guarded given multiple complex medical issues. The impression and plan of care has been dictated as directed. : I performed a history and examination of this patient, discussed the same with the dictator. I agree with the dictator's note ,documented as a scribe. Any additional findings or plans will be noted.
[2020-12-17 17:41] LABS: Glucose,Whole Blood 163 mg/dL (75-99)
--- NOTE | 2020-12-17 18:26 | P.ANPRN ---
Procedure Note - Anesthesia - Nerve Block Performed Bilateral Erector Spinae Single Time Out Performed: Yes Date of Procedure: 12/17/20 Procedure Start Time: :35 Procedure Stop Time: :43 Location of Patient: PreOp Indication: Acute Post-Operative Pain, Requested by Surgeon Sedation Type: Sedate with meaningful contact maintained Preparation: Sterile Prep Position: Supine Needle Types: Pajunk Ultrasound used to visualize needle placement: No Ultrasound used to observe medication spread: No Blood Aspirated: No Pain Paresthesia on Injection Noted: No Resistance on Injection: Normal Image Stored and Saved: Yes Events: Uneventful and Well Tolerated (ropi .5% 15cc plus xylo 1.5% 15cc bilaterally at L1)
[2020-12-17 19:43] VITALS: RESP 18
[2020-12-17 20:05] LABS: Glucose,Whole Blood 214 mg/dL (75-99)
[2020-12-18 06:59] LABS: African American GFR (CKD) 16 (>60 ml/min/1.73 sqM); Anion Gap 8 mmol/L; Blood Urea Nitrogen 86 mg/dL (9-20); Calcium 9.4 mg/dL (8.4-10.2); Carbon Dioxide 20 mmol/L (22-30); Chloride 112 mmol/L (98-107); Glucose 145 mg/dL (74-99); Magnesium 1.9 mg/dL (1.6-2.3); Non-African American GFR(CKD) 14 (>60 ml/min/1.73 sqM); Potassium 5.4 mmol/L (3.5-5.1); Sodium 140 mmol/L (137-145)
[2020-12-18 07:21] LABS: Glucose,Whole Blood 153 mg/dL (75-99)
[2020-12-18] MEDS ORDERED: INSULIN REGULAR 100 UNIT/ML VIAL (IV) IV ONE (08:29)
[2020-12-18] MEDS ORDERED: DEXTROSE 50% SYRINGE 50 ML IVP STA (08:29)
[2020-12-18] MEDS ORDERED: SODIUM BICARB 8.4% 50 ML SYR (1 MEQ/ML) IV STA (08:29)
--- NOTE | 2020-12-18 09:05 | XR ---
EXAMINATION TYPE: XR chest 1V DATE OF EXAM: 12/18/2020 COMPARISON: Chest x-ray 08/04/2020 HISTORY: Shortness of breath TECHNIQUE: Single frontal view of the chest is obtained. FINDINGS: There is no focal air space opacity, pleural effusion, or pneumothorax seen. The cardiac silhouette size is enlarged, there is a generator in the left pectoral region, lead is present in the right ventricle, patient is post median sternotomy. There are overlying artifacts. Right hemidiaph ragm remains slightly elevated. Question some prominence of the pulmonary artery and interstitial. Th e osseous structures are intact. IMPRESSION: Cardiomegaly, there may be underlying pulmonary artery hypertension, mild interstitial e akiko, volume overload
[2020-12-18] MEDS: ATORVASTATIN 80 MG TAB PO SCH (09:07)
[2020-12-18] MEDS: carvediloL 12.5 MG TAB PO SCH ×2 (09:07→17:32)
[2020-12-18] MEDS: SODIUM CHLORIDE 0.9% 1,000 ML IV SCH (09:27)
[2020-12-18] MEDS: SODIUM BICARBONATE TAB 650 MG TAB PO SCH ×2 (09:30→17:33)
[2020-12-18 09:48] LABS: Basophils # (A) 0.01 X 10*3/uL (0.00-0.10); Basophils % (A) 0.2 %; Eosinophils # (A) 0.29 X 10*3/uL (0.04-0.35); Eosinophils % (A) 7.1 %; HCT 30.6 % (39.6-50.0); HGB 9.7 g/dL (13.0-17.0); Lymphocytes # (A) 0.59 X 10*3/uL (0.90-5.00); Lymphocytes % (A) 14.5 %; MCH 28.4 pg (27.0-32.0); MCHC 31.7 g/dL (32.0-37.0); MCV 89.7 fL (80.0-97.0); Monocytes # (A) 0.35 X 10*3/uL (0.20-1.00); Monocytes % (A) 8.6 %; Neutrophils # (A) 2.81 X 10*3/uL (1.80-7.70); Neutrophils % (A) 69.4 %; Platelet Count 131 X 10*3/uL (140-440); RBC 3.41 X 10*6/uL (4.40-5.60); RDW 14.3 % (11.5-14.5); WBC 4.06 X 10*3/uL (4.50-10.00)
--- NOTE | 2020-12-18 11:11 | P.PN ---
Subjective This is a pleasant 55-year-old male past medical history significant for coronary artery disease s/p bypass grafting with BURNHAM-LAD, SVG-OM, PDA, diagonal branch, ischemic cardiomyopathy s/p AICD ([employer]), VT s/p ablation, hypertension, dyslipidemia, peripheral vascular disease and former nicotine dependence. He follows in the office with Dr. Freedman. We have been asked to see in consultation for bradycardia. He was brought to the hospital per Dr. Dodson for elective inguinal hernia repair. During the procedure per anesthesia the patients heart rate was 20. There is no telemetry strips of this as their machine does not print strips. Again while in recovery room he was having episodes of bradycardia. EKG obtained revealed a paced rhythm heart rate of 45. Prior to that EKG the nurse gave atropine for a visualized heart rate of 35. Review of telemetry strips reveals he is sinus bradycardia with PVC's, heart rate in the mid 40's. Most recent echocardiogram obtained in the office October 2019 revealed severely impaired LV systolic function with ejection fraction 24%, mild to moderate aortic regurgitation, mild to moderate mitral regurgitation, mild to moderate tricuspid regurgitation and mild pulmonary hypertension with an RVSP of 45 mmHg. 12/18/2020 Patient is postop day #2 status post robotic-assisted laparoscopic bilateral inguinal hernia repair with mesh. Patient seen and examined resting comfortably in no acute distress. Telemetry tracings reviewed, he continues to maintain sinus mechanism with no significant bradycardia or arrhythmias. Patient continues to be in sinus mechanism his heart rate 58-80s. No evidence of bradycardia on telemetry. Patient has evidence of acute renal failure with creatinine up to 4.36 also hyperkalemia. Nephrology is on consult. Patient reports that his pain is controlled. He denies chest pain, palpitations, lightheadedness, dizziness. Denies any nausea or vomiting. Tolerating regular diet. Afebrile. WBC 4.0, hemoglobin 9.7, platelets 131, sodium 140, potassium 4.4, BUN 86, serum creatinine 4.3, magnesium 1.9. Echocardiogram obtained revealed severely impaired LV systolic function with ejection fraction less than 20%, mild aortic stenosis with a mean gradient of 16 mmHg, moderate MR and moderate TR, moderate pulmonary hypertension with an RVSP of 47 mmHg. Device interrogation was never completed yesterday. PHYSICAL EXAMINATION Blood pressure is 134/90, heart rate 79, afebrile, maintaining oxygen saturation at room air CONSTITUTIONAL: No apparent distress. HEENT: Head is normocephalic. Pupils are equal, round. Sclerae anicteric. Mucous membranes of the mouth are moist. No JVD. No carotid bruit. CHEST EXAMINATION: Lungs are clear to auscultation. No chest wall tenderness is noted on palpation or with deep breathing. HEART EXAMINATION: Regular rate and rhythm. S1, S2 heard. Systolic ejection murmur at the base, no gallops or rub. EXTREMITIES: 2+ peripheral pulses, no lower extremity edema and no calf tenderness. ASSESSMENT Sinus bradycardia Acute on chronic kidney disease Hyperkalemia s/p inguinal hernia repair Ischemic cardiomyopathy s/p AICD Chronic systolic heart failure Coronary artery disease s/p bypass grafting History of [place] s/p ablation Hypertension Dyslipidemia Diabetes mellitus Former nicotine dependence PLAN -It appears he has a low rate setting of 40 bpm. Even if the magnet was in place during the procedure his back-up pacemaker should have been working. Telemetry tracings have been reviewed, he continues to maintain sinus mechanism with no significant bradycardia or arrhythmias. -Patient can have his device interrogated in the office at the device clinic -Entresto still on hold secondary to renal failure pending nephrology evaluation. -From cardiology perspective, patient is stable from our standpoint. Patient to follow up in the Device Clinic and with Dr. Freedman. We will follow the patient as needed. Please re-consult if any questions or concerns. Nurse Practitioner note has been reviewed, I agree with a documented findings and plan of care. Patient was seen and examined Objective - Vital Signs Vital signs: Vital Signs Temp 98.1 F 12/18/20 07:00 Pulse 58 L 12/18/20 07:00 Resp 18 12/18/20 07:00 BP 134/90 12/18/20 07:00 Pulse Ox 96 12/18/20 07:00 Intake & Output 12/17/20 12/18/20 12/18/20 18:59 06:59 18:59 Other: Voiding Method Toilet Toilet Urinal Urinal # Voids 2 4 - Labs CBC & Chem 7: 12/18/20 06:20 12/18/20 06:20 Labs: Abnormal Lab Results - Last 24 Hours (Table) 12/17/20 12/17/20 12/17/20 Range/Units 11:50 17:40 20:04 WBC (4.50-10.00) X 10*3/uL RBC (4.40-5.60) X 10*6/uL Hgb (13.0-17.0) g/dL Hct (39.6-50.0) % MCHC (32.0-37.0) g/dL Plt Count (140-440) X 10*3/uL Lymphocytes # (0.90-5.00) X 10*3/uL Potassium (3.5-5.1) mmol/L Chloride (98-107) mmol/L Carbon Dioxide (22-30) mmol/L BUN (9-20) mg/dL Creatinine (0.66-1.25) mg/dL Glucose (74-99) mg/dL POC Glucose (mg/dL) 158 H 163 H 214 H (75-99) mg/dL 12/18/20 12/18/20 12/18/20 Range/Units 06:20 06:20 07:20 WBC 4.06 L (4.50-10.00) X 10*3/uL RBC 3.41 L (4.40-5.60) X 10*6/uL Hgb 9.7 L (13.0-17.0) g/dL Hct 30.6 L (39.6-50.0) % MCHC 31.7 L (32.0-37.0) g/dL Plt Count 131 L (140-440) X 10*3/uL Lymphocytes # 0.59 L (0.90-5.00) X 10*3/uL Potassium 5.4 H (3.5-5.1) mmol/L Chloride 112 H (98-107) mmol/L Carbon Dioxide 20 L (22-30) mmol/L BUN 86 H (9-20) mg/dL Creatinine 4.34 H (0.66-1.25) mg/dL Glucose 145 H (74-99) mg/dL POC Glucose (mg/dL) 153 H (75-99) mg/dL
--- NOTE | 2020-12-18 11:50 | P.NPCON ---
History of Present Illness - Reason for Consult acute renal failure, chronic renal failure - History of Present Illness Reason for consultation: Acute kidney injury on chronic kidney disease History of present illness: Patient is a 55-year-old male seen in renal consultation for acute kidney injury on chronic kidney disease. Patient's creatinine in September and October 2019 was in the range of 2.83. This admission it has been stable near 4.3. Patient presented to the hospital for hernia repair and underwent surgery this admission. He was noted to be bradycardic and medications were adjusted by cardiology. Patient has history of systolic CHF ejection fraction of less than 20% with moderate mitral and tricuspid regurgitation. He also has pulmonary hypertension. Patient does take Lasix outpatient and states the dose was decreased from 80 mg a 40 mg once daily recently by cardiology. He has no edema. Good urine output. No chest pain or shortness of breath. Denies reasons of. No fever or chills. Oral intake is good. Blood pressure controlled. Patient has a sister who is about to initiate renal replacement therapy. He has long-standing history of diabetes. Vital signs are stable. General: The patient appeared well nourished and normally developed. HEENT: Head exam is unremarkable. LUNGS: Breath sounds decreased. HEART: Rate and Rhythm are regular. ABDOMEN: Soft, no distention. EXTREMITITES: No edema. Past Medical History Past Medical History: Coronary Artery Disease (CAD), Diabetes Mellitus, Deep Vein Thrombosis (DVT), Hearing Disorder / Deafness, Hyperlipidemia, Myocardial Infarction ([place]), Vascular Disorder Additional Past Medical History / Comment(s): Edema Lt ankle. Deaf in Rt ear, 30% hearing in Lt. [place] X7, DVT X6 Lt Leg, Hx kidney stones, PVD Lt Leg. Hx of V-Tach, CMP - has AICD/Pacemaker. Lt inguinal hernia Last Myocardial Infarction Date:: 2015 History of Any Multi-Drug Resistant Organisms: None Reported Past Surgical History: AICD, Cardiac Ablation, Cholecystectomy, Coronary Bypass/CABG, Heart Catheterization, Hernia Repair, Pacemaker, Tonsillectomy Additional Past Surgical History / Comment(s): Right inguinal hernia, 2013 CABG- 4 vessel, PACEMAKER/DEFIB-[employer]. Sternal wires, top 3, removed 07/2020 Past Anesthesia/Blood Transfusion Reactions: Postoperative Nausea & Vomiting (PONV) Type of Cardiac Device: Permanent Pacemaker, AICD Device Placement Date:: 04/04/2017 Past Psychological History: No Psychological Hx Reported Additional Psychological History / Comment(s): . Smoking Status: Current every day smoker Past Alcohol Use History: None Reported Additional Past Alcohol Use History / Comment(s): Pt started smoking at the age of 18 , SMOKES 1PPD. QUIT 2019. Past Drug Use History: None Reported - Past Family History Mother Family Medical History: No Reported History Additional Family Medical History / Comment(s): Mother is 82 yrs old. Father Family Medical History: CVA/TIA Additional Family Medical History / Comment(s): Father from CVA at the age of 47 yrs. Brother(s) Family Medical History: AICD/Pacemaker Medications and Allergies Home Medications Medication Instructions Recorded Confirmed Type metFORMIN HCL [Glucophage] 1,000 mg PO AC-BID 02/24/15 12/16/20 History Nitroglycerin Sl Tabs [Nitrostat] 0.4 mg SUBLINGUAL Q5M PRN #100 tab 02/21/16 12/16/20 Rx Aspirin [Adult Low Dose Aspirin EC] 81 mg PO QAM 03/31/17 12/16/20 History Escitalopram [Lexapro] 10 mg PO QAM 03/31/17 12/16/20 History Rosuvastatin Calcium [Crestor] 40 mg PO QAM 03/31/17 12/16/20 History Carvedilol [Coreg] 25 mg PO BID 06/20/19 12/16/20 History Dulaglutide [Trulicity] 1.5 mg SQ BARBER 06/20/19 12/16/20 History Empagliflozin [Jardiance] 10 mg PO QAM 06/20/19 12/16/20 History Insulin Glargine,Hum.rec.anlog 12 - 18 units SQ BID 06/20/19 12/16/20 History [Basaglar Kwikpen U-100] Furosemide [Lasix] 40 mg PO QAM 07/30/20 12/16/20 History Sacubitril/Valsartan [Entresto 49 1 tab PO BID 12/14/20 12/16/20 History mg-51 mg Tablet] Acetaminophen Tab [Tylenol] 650 mg PO Q6H #30 tab 12/16/20 Rx Docusate [Colace] 100 mg PO BID #20 capsule 12/16/20 Rx Ibuprofen [Motrin] 600 mg PO Q6HR PRN #40 tab 12/16/20 Rx oxyCODONE HCL [OxyIR] 5 mg PO Q6H PRN 3 Days #10 tab 12/16/20 Rx Allergies Allergy/AdvReac Type Severity Reaction Status Date / Time morphine Allergy Severe Rash/Hives Verified 12/16/20 08:47 adhesive tape Allergy Rash/Hives Verified 12/16/20 08:47 Physical Exam Vitals: Vital Signs Temp Pulse Pulse Pulse Resp BP Pulse Ox 12/18/20 07:00 98.1 F 58 L 18 134/90 96 12/18/20 02:00 98.6 F 79 18 127/89 97 12/17/20 19:51 72 18 12/17/20 19:43 98.8 F 75 18 120/80 100 12/17/20 15:00 97.9 F 72 16 122/77 98 12/17/20 14:00 57 L 72 88 16 Intake and Output 12/17/20 12/18/20 12/18/20 22:59 06:59 14:59 Other: Voiding Method Toilet Urinal # Voids 3 4 Results - Lab Results Most recent lab results Calcium 9.4 mg/dL (8.4-10.2) 12/18/20 06:20 Magnesium 1.9 mg/dL (1.6-2.3) 12/18/20 06:20 12/18/20 06:20 12/18/20 06:20 Assessment and Plan Plan: Assessment: 1. Acute kidney injury secondary to ATN secondary to hemodynamic instability. Creatinine stable at 4.3 for this admission. 2. Chronic kidney disease stage IV with baseline creatinine near 3 in September and October 2019. Patient does not follow with a inverter and clipper outpatient. Etiology is diabetic kidney disease. 3. Chronic systolic CHF with ejection fraction of 20% with moderate mitral and tricuspid regurgitation. 4. Pulmonary hypertension. 5. Mild hyperkalemia secondary to acute kidney injury, metabolic acidosis and entresto. 6. Metabolic acidosis secondary to acute kidney injury. 7. Diabetes mellitus. 8. Status post hernia repair. Plan: Hep-Lock IV fluids. Resume Lasix 40 mg once daily upon discharge. Add oral sodium bicarbonate. He also received IV insulin with an amp of D50 this morning. Repeat potassium level this afternoon. Check renal ultrasound. Possibly going home today. Follow up outpatient in 1 week. Thank you for the consultation. I will continue to follow the patient with you during his hospital stay.
[2020-12-18 11:56] LABS: Glucose,Whole Blood 116 mg/dL (75-99)
--- NOTE | 2020-12-18 13:11 | P.PN ---
Subjective Progress Note Date: 12/18/20 This is a 55-year-old gentleman with past medical history of CAD, CABG, CHF, ischemic cardiomyopathy, EF 24%, diabetes mellitus, chronic DVT, hypertension, hyperlipidemia, ongoing nicotine dependence and multiple other medical issues, status post robotic-assisted laparoscopic bilateral inguinal hernia repair. Pain controlled. Ambulating, tolerated exertion well. Denies passing flatus or bowel movement. Evaluated by cardiology, interrogation of AICD pending. Per cardiology, Intra and postop developed bradycardia, required atropine, hypotension. Worsening renal function up to 4.36, nephrology consulted. Denies chest pain, palpitations or shortness of breath. Maintaining O2 sats in the 90s on room air. T-max 99.4, WBC 4.7. Consuming 50% of diet intake with no nausea or vomiting. Blood sugars controlled. Telemetry currently sinus, blood pressure stable. Hemoglobin 9.6, platelets 120. Echocardiogram completed yesterday reporting severely impaired LV function, EF less than 20%, moderate aortic valve sclerosis moderate mitral regurgitation, moderate tricuspid regurgitation, moderate pulmonary hypertension. 12/18/2020 pacemaker not interrogated, reordered. Telemetry reporting first-de gree AV block, bundle-branch block, sinus rhythm, PACs, PVCs and couplets. Heart rate this morning ranging from high 50s to 80s. Blood pressure stable. Denies chest pain, palpitations or shortness of breath. Maintaining O2 sats in the high 90s on room air. Creatinine 4.34, potassium 5.4, nephrology consult in place. hemoglobin 9.7, platelets 131. Afebrile, WBC 4.06. Denies lightheadedness, dizziness or focal deficits. Objective - Vital Signs Vital signs: Vital Signs Temp 98.1 F 12/18/20 07:00 Pulse 58 L 12/18/20 07:00 Resp 18 12/18/20 07:00 BP 134/90 12/18/20 07:00 Pulse Ox 96 12/18/20 07:00 Intake & Output 12/17/20 12/18/20 12/18/20 18:59 06:59 18:59 Other: Voiding Method Toilet Toilet Urinal Urinal # Voids 2 4 - Exam PHYSICAL EXAM: VITAL SIGNS: As above GENERAL: Alert and oriented 3, Sitting up in chair, no acute distress HEENT: Conjunctivae normal. eyes normal. Oral mucosa moist NECK: Supple, No JVD CARDIOVASCULAR: S1, S2 regular. Systolic murmur RESPIRATION: Bilateral bases diminished. No rhonchi or crackles. ABDOMEN: Soft, status post surgery No guarding. Positive Bowel sounds. LEGS: No edema. no swelling, intact peripheral pulses NERVOUS SYSTEM: Cranial N 2-12 grossly normal. No focal deficits. Strength and sensation grossly intact. Skin: Warm and dry, no rash - Labs CBC & Chem 7: 12/18/20 06:20 12/18/20 06:20 Labs: Abnormal Lab Results - Last 24 Hours (Table) 12/17/20 12/17/20 12/17/20 Range/Units 11:50 17:40 20:04 WBC (4.50-10.00) X 10*3/uL RBC (4.40-5.60) X 10*6/uL Hgb (13.0-17.0) g/dL Hct (39.6-50.0) % MCHC (32.0-37.0) g/dL Plt Count (140-440) X 10*3/uL Lymphocytes # (0.90-5.00) X 10*3/uL Potassium (3.5-5.1) mmol/L Chloride (98-107) mmol/L Carbon Dioxide (22-30) mmol/L BUN (9-20) mg/dL Creatinine (0.66-1.25) mg/dL Glucose (74-99) mg/dL POC Glucose (mg/dL) 158 H 163 H 214 H (75-99) mg/dL 12/18/20 12/18/20 12/18/20 Range/Units 06:20 06:20 07:20 WBC 4.06 L (4.50-10.00) X 10*3/uL RBC 3.41 L (4.40-5.60) X 10*6/uL Hgb 9.7 L (13.0-17.0) g/dL Hct 30.6 L (39.6-50.0) % MCHC 31.7 L (32.0-37.0) g/dL Plt Count 131 L (140-440) X 10*3/uL Lymphocytes # 0.59 L (0.90-5.00) X 10*3/uL Potassium 5.4 H (3.5-5.1) mmol/L Chloride 112 H (98-107) mmol/L Carbon Dioxide 20 L (22-30) mmol/L BUN 86 H (9-20) mg/dL Creatinine 4.34 H (0.66-1.25) mg/dL Glucose 145 H (74-99) mg/dL POC Glucose (mg/dL) 153 H (75-99) mg/dL Assessment and Plan Assessment: Status post laparoscopic bilateral inguinal hernia repair Sinus bradycardia with hypotension intra & postoperative Acute on chronic renal failure, stage IV, baseline around 3 Hyperkalemia secondary to the above CAD, MD, CABG Chronic CHF, systolic Ischemic cardiomyopathy with AICD, EF less than 20% Moderate pulmonary hypertension,RVSP 47 History of VT, status post ablation Diabetes mellitus Chronic DVT Hypertension Hyperlipidemia Plan: Continue on current medication regime ,monitoring and symptomatic treatment. Troponin added onto prior labs.Interrogation of pacemaker reordered. Maintain gentle IV fluid hydration.Nephrology consult in place, recommendations pending. Hyperkalemic cocktail ordered. Repeat potassium level this afternoon. Increase ambulation as tolerated . Prognosis guarded given multiple complex medical issues. The impression and plan of care has been dictated as directed. : I performed a history and examination of this patient, discussed the same with the dictator. I agree with the dictator's note ,documented as a scribe. Any additional findings or plans will be noted.
--- NOTE | 2020-12-18 13:24 | P.DS ---
Providers Date of admission: 12/17/20 13:15 Expected date of discharge: 12/18/20 Attending physician: Manuel Dodson Consults: 12/16/20 12:56 Consult Physician Stat Consulting Provider: Roney Robert Consult Reason/Comments: BRADYCARDIA, WITH PACEMAKER/AICD Do you want consulting provider notified?: Yes 12/16/20 14:17 Consult Physician Routine Consulting Provider: Manuel Dodson Consult Reason/Comments: POST SURGICAL Do you want consulting provider notified?: Already Contacted 12/17/20 10:09 Consult Physician Routine Consulting Provider: Shanae Raygoza Consult Reason/Comments: acute renal failure Do you want consulting provider notified?: Yes Primary care physician: Maurice Hernandez Hospital Course: Final Diagnoses: Status post laparoscopic bilateral inguinal hernia repair Sinus bradycardia with hypotension intra & postoperative Acute on chronic renal failure, stage IV, baseline around 3 Hyperkalemia secondary to the above CAD, VT, CABG Chronic CHF, systolic Ischemic cardiomyopathy with AICD, EF less than 20% Moderate pulmonary hypertension,RVSP 47 History of VT, status post ablation Diabetes mellitus Chronic DVT Hypertension Hyperlipidemia Hospital course:This is a 55-year-old gentleman with past medical history of CAD, CABG, CHF, ischemic cardiomyopathy, EF 24%, diabetes mellitus, chronic DVT, hypertension, hyperlipidemia, ongoing nicotine dependence and multiple other medical issues, status post robotic-assisted laparoscopic bilateral inguinal hernia repair. Pain controlled. Ambulating, tolerated exertion well. Denies passing flatus or bowel movement. Evaluated by cardiology, interrogation of AICD pending. Per cardiology, Intra and postop developed bradycardia, required atropine, hypotension. Worsening renal function up to 4.36, nephrology consulted. Denies chest pain, palpitations or shortness of breath. Maintaining O2 sats in the 90s on room air. T-max 99.4, WBC 4.7. Consuming 50% of diet intake with no nausea or vomiting. Blood sugars controlled. Telemetry currently sinus, blood pressure stable. Hemoglobin 9.6, platelets 120. Echocardiogram completed yesterday reporting severely impaired LV function, EF less than 20%, moderate aortic valve sclerosis moderate mitral regurgitation, moderate tricuspid regurgitation, moderate pulmonary hypertension. 12/18/2020 pacemaker not interrogated, reordered. Telemetry reporting first- degree AV block, bundle-branch block, sinus rhythm, PACs, PVCs and couplets. Heart rate this morning ranging from high 50s to 80s. Blood pressure stable. Denies chest pain, palpitations or shortness of breath. Maintaining O2 sats in the high 90s on room air. Creatinine 4.34, potassium 5.4, nephrology consult in place. hemoglobin 9.7, platelets 131. Afebrile, WBC 4.06. Denies ligh theadedness, dizziness or focal deficits. Troponin added onto prior labs.related to etiology unclear for significant bradycardia, hypotension intraoperative and postoperative. Denies chest pain, palpitations or shortness of breath. Interrogation of pacemaker reordered. Maintain gentle IV fluid hydration.Nephrology consult in place, recommendations pending. Hyperkalemic cocktail ordered. Repeat potassium level this afternoon. Patient will be discharged home later today pending repeat potassium level within normal limits, renal ultrasound completed with clearance from nephrology, pending final DC recommendations regarding holding entresto, beta odntrell dose, interrogation/interrogation review and clearance per cardiology, final DC recommendations pain management and clearance as per surg tere.Metformin,Trulicity, Jardiance discontinued Secondary to renal failure, maintain log of Accu-Cheks before meals and at bedtime, take to follow up visit with PCP for further recommendations. The impression and plan of care has been dictated as directed. : I performed a history and examination of this patient, discussed the same with the dictator. I agree with the dictator's note ,documented as a scribe. Any additional findings or plans will be noted. Patient Condition at Discharge: Stable Plan - Discharge Summary Discharge Rx Participant: No New Discharge Prescriptions: New Docusate [Colace] 100 mg PO BID #20 capsule Ibuprofen [Motrin] 600 mg PO Q6HR PRN #40 tab PRN Reason: Pain oxyCODONE HCL [OxyIR] 5 mg PO Q6H PRN 3 Days #10 tab PRN Reason: Pain Acetaminophen Tab [Tylenol] 650 mg PO Q6H #30 tab Sodium Bicarbonate Tab 650 mg PO TID #30 tab Continue Nitroglycerin Sl Tabs [Nitrostat] 0.4 mg SUBLINGUAL Q5M PRN #100 tab PRN Reason: Chest Pain Aspirin [Adult Low Dose Aspirin EC] 81 mg PO QAM Rosuvastatin Calcium [Crestor] 40 mg PO QAM Escitalopram [Lexapro] 10 mg PO QAM Carvedilol [Coreg] 25 mg PO BID Furosemide [Lasix] 40 mg PO QAM Insulin Glargine,Hum.rec.anlog [Basaglar Kwikpen U-100] 12 - 18 units SQ BID #0 Discontinued metFORMIN HCL [Glucophage] 1,000 mg PO AC-BID Sacubitril/Valsartan [Entresto 49 mg-51 mg Tablet] 1 tab PO BID Discharge Medication List Nitroglycerin Sl Tabs [Nitrostat] 0.4 mg SUBLINGUAL Q5M PRN #100 tab 02/21/16 [Rx] Aspirin [Adult Low Dose Aspirin EC] 81 mg PO QAM 03/31/17 [History] Escitalopram [Lexapro] 10 mg PO QAM 03/31/17 [History] Rosuvastatin Calcium [Crestor] 40 mg PO QAM 03/31/17 [History] Carvedilol [Coreg] 25 mg PO BID 06/20/19 [History] Furosemide [Lasix] 40 mg PO QAM 07/30/20 [History] Acetaminophen Tab [Tylenol] 650 mg PO Q6H #30 tab 12/16/20 [Rx] Docusate [Colace] 100 mg PO BID #20 capsule 12/16/20 [Rx] Ibuprofen [Motrin] 600 mg PO Q6HR PRN #40 tab 12/16/20 [Rx] oxyCODONE HCL [OxyIR] 5 mg PO Q6H PRN 3 Days #10 tab 12/16/20 [Rx] Insulin Glargine,Hum.rec.anlog [Basaglar Kwikpen U-100] 12 - 18 units SQ BID #0 12/18/20 [Rx] Sodium Bicarbonate Tab 650 mg PO TID #30 tab 12/18/20 [Rx] Follow up Appointment(s)/Referral(s): Carlos Freedman MD [STAFF PHYSICIAN] - 1 Week Maurice Hernandez MD [Primary Care Provider] - 1 Week Manuel Dodson MD [STAFF PHYSICIAN] - 12/29/20 3:00 pm Ambulatory/Diagnostic Orders: Complete Blood Count w/diff [LAB.AMB] Time Frame: 3 Days, Location: None Selected Patient Instructions/Handouts: Inguinal Hernia (GEN), Inguinal Hernia Repair (GEN) Activity/Diet/Wound Care/Special Instructions: Please call [facility] to set up an appointment. Metformin,Trulicity, Jardiance discontinued Secondary to renal failure, maintain log of Accu-Cheks before meals and at bedtime, take to follow up visit with PCP for further recommendations.
[2020-12-18] MEDS ORDERED: SODIUM POLYSTYRENE SULFONATE 15 GM/60 ML BOTTLE PO STA (14:11)
[2020-12-18 14:56] VITALS: BP 125/89; PULSE 65; TEMP 98.5
[2020-12-18 17:41] LABS: Glucose,Whole Blood 122 mg/dL (75-99)
--- NOTE | 2020-12-18 19:38 | US ---
EXAMINATION TYPE: US kidneys/renal and bladder DATE OF EXAM: 12/18/2020 COMPARISON: NONE CLINICAL HISTORY: gregory. Diabetic; post hernia repair; patient is being discharged EXAM MEASUREMENTS: Right Kidney: 9.1 x 5.7 x 5.3 cm Left Kidney: 10.3 x 5.2 x 6.2 cm Post Void Residual Volume: not assessed on inpatient Right Kidney: couple of cortical cysts seen with larger seen lower cortex = 2.1 x 2.0 x 1.9cm Left Kidney: couple of cortical cysts seen with larger medial cyst = 1.0 x 1.0 x 1.0cm Bladder: wnl Bilateral Jets seen: not seen within 3 minutes of observation There is no evidence for hydronephrosis at this point in time. No nephrolithiasis is seen. The urina ry bladder is anechoic. IMPRESSION: There are bilateral renal cortical cysts. No solid renal mass. No hydronephrosis.
--- NOTE | 2021-01-15 10:42 | P.OP ---
Date of Procedure: 12/16/20 Preoperative Diagnosis: left inguinal hernia Postoperative Diagnosis: bilateral hernia Recoright cordded lipoma Procedure(s) Performed: laparoscopic robotic repair of bilateral inguinal hernia excision of right cord lipoma Anesthesia: CRISTEL Surgeon: Manuel Dodson Estimated Blood Loss (ml): 5 Pathology: other (right cord lipoma) Condition: stable Disposition: PACU Description of Procedure: The patient's placed on the operating table in the supine position. The patient received general anesthesia. The patient's abdomen was prepped and draped in usual sterile fashion. The skin was anesthetized 1% local Xylocaine at the incision sites. Using an 11 blade a skin incision was made at the umbilicus. The fascia was grasped with a Wilmerding and then the peritoneal cavity was entered with the Veress needle. Position of the Veress needle was confirmed with a positive drop test. After adequate insufflation a 5 mm trocar was placed into the peritoneal cavity. The Laparoscope was placed the peritoneal cavity. And a robotic 8 mm trocar was placed in the right lateral position and then another 8 mm robotic trochars placed in the left lateral position. The original 5 mm trocar was exchanged for a 12 mm trocar. The patient was placed in reverse Trendelenburg and then the patient was docked to the robot. Next the peritoneum over top of the right inguinal hernia was incised and then using blunt and sharp dissection and electrocautery the hernia sac was dissected free from the floor of the inguinal canal. The right cord lipoma was dissected free and sent to pathology. The hernia sac was completely reduced into the peritoneal cavity. And then using the Pro industrial truck mechanic mesh the hernia was repaired. The peritoneum was then sutured with 20V lock suture. Next the peritoneum over top of the left inguinal hernia was incised and then using blunt and sharp dissection and electrocautery the hernia sac was dissected free from the floor of the inguinal canal. The hernia sac was completely reduced into the peritoneal cavity. And then using the Pro industrial truck mechanic mesh the hernia was repaired. The peritoneum was then sutured with 20V lock suture. The patient was then undocked the robot. The needle was withdrawn from the peritoneal cavity. The umbilical trocar site was closed with 0 Ethibond suture. The skin was closed interrupted 3-0 Monocryl suture. Dermabond dressing was applied. Patient was sent to recovery in stable condition.
== END 2020-12-18 18:49 | disposition home or self-care (01) ==
LOC: OR 08:25 → 6NMEDSUR 15:02 → OR 12-17 13:15
PROVIDERS: ADMIT Family Medicine; ATTEND Surgery
DX: K40.20 Bilateral inguinal hernia, without obstruction or gangrene, not specified as recurrent (principal); D17.6 Benign lipomatous neoplasm of spermatic cord; I27.20 Pulmonary hypertension, unspecified; R00.1 Bradycardia, unspecified; I13.0 Hypertensive heart and chronic kidney disease with heart failure and stage 1 through stage 4 chronic kidney disease, or unspecified chronic kidney disease; I50.22 Chronic systolic (congestive) heart failure; N18.4 Chronic kidney disease, stage 4 (severe); E11.22 Type 2 diabetes mellitus with diabetic chronic kidney disease; I25.10 Atherosclerotic heart disease of native coronary artery without angina pectoris; E87.5 Hyperkalemia; E11.51 Type 2 diabetes mellitus with diabetic peripheral angiopathy without gangrene; E78.5 Hyperlipidemia, unspecified; E87.2 Acidosis; F17.200 Nicotine dependence, unspecified, uncomplicated; H91.91 Unspecified hearing loss, right ear; I08.1 Rheumatic disorders of both mitral and tricuspid valves; I08.3 Combined rheumatic disorders of mitral, aortic and tricuspid valves; I25.2 Old myocardial infarction; I25.5 Ischemic cardiomyopathy; I44.30 Unspecified atrioventricular block; I47.2 Ventricular tachycardia; Z79.82 Long term (current) use of aspirin; Z79.84 Long term (current) use of oral hypoglycemic drugs; Z79.899 Other long term (current) drug therapy; Z91.048 Other nonmedicinal substance allergy status; Z88.5 Allergy status to narcotic agent; Z87.442 Personal history of urinary calculi; Z95.810 Presence of automatic (implantable) cardiac defibrillator; Z95.1 Presence of aortocoronary bypass graft; Z82.3 Family history of stroke
CPT/HCPCS: 49650; S2900; 64999; 71045; 76770; 80048; 83735; 84132; 84443; 84484; 85025; 88304; 93005; 93306

== ENCOUNTER 2021-01-29 13:43 | Emergency (ER) | payer BC ==
[2021-01-29 13:56] VITALS: RESP 16
--- NOTE | 2021-01-29 15:49 | XR ---
EXAMINATION TYPE: XR chest 2V DATE OF EXAM: 01/29/2021 COMPARISON: Chest x-ray 12/18/2020 HISTORY: Cough and pain TECHNIQUE: Frontal and lateral views of the chest are obtained. FINDINGS: Findings are similar, the heart is enlarged. Perihilar vascular indistinctness is present, the interstitium is mildly increased. Intracardiac defibrillator is stable. There is no evident pneu mothorax or pleural effusion. IMPRESSION: Diminutive be component of pulmonary venous hypertension and interstitial edema, correla te, follow-up suggested
--- NOTE | 2021-01-29 16:37 | ED ---
General Adult HPI - General Chief complaint: Recheck/Abnormal Lab/Rx Stated complaint: Abnormal Labs Time Seen by Provider: 01/29/21 13:55 Source: patient Mode of arrival: ambulatory Limitations: no limitations - History of Present Illness Initial comments: Patient is a 55 year old male with past history of diabetes, coronary artery disease, chronic kidney disease who presents to the emergency department for abnormal labs. He reports that he was sent over from Dr. Freedman's office. Patient states that he has had shortness of breath for several months. He has seen his primary care physician 5 times in regards to his symptoms. States that he was not getting any answers and therefore saw his plaster and stucco worker today. Dr. Freedman completed some laboratory studies and found that the patient's creatinine was high. He recommended that he come in to the emergency room for evaluation. Patient states that he has a known history of kidney disease. Sta alisson that he has had a component of kidney failure for the past several years. He states he continues to make the same amount of urine. Denies any lower extremity edema. Does have a history of DVT greater than 30 years ago. Patient is not on any anticoagulation. Denies any chest pain. No fevers, chills or cough. No other alleviating, precipitating or modifying factors - Related Data Home Medications Medication Instructions Recorded Confirmed Aspirin [Adult Low Dose Aspirin EC] 81 mg PO QAM 03/31/17 12/16/20 Escitalopram [Lexapro] 10 mg PO QAM 03/31/17 12/16/20 Rosuvastatin Calcium [Crestor] 40 mg PO QAM 03/31/17 12/16/20 Carvedilol [Coreg] 25 mg PO BID 06/20/19 12/16/20 Furosemide [Lasix] 40 mg PO QAM 07/30/20 12/16/20 Previous Rx's Medication Instructions Recorded Nitroglycerin Sl Tabs [Nitrostat] 0.4 mg SUBLINGUAL Q5M PRN #100 tab 02/21/16 Acetaminophen Tab [Tylenol] 650 mg PO Q6H #30 tab 12/16/20 Docusate [Colace] 100 mg PO BID #20 capsule 12/16/20 oxyCODONE HCL [OxyIR] 5 mg PO Q6H PRN 3 Days #10 tab 12/16/20 Insulin Glargine,Hum.rec.anlog 12 - 18 units SQ BID #0 12/18/20 [Esme Guerin U-100] Sodium Bicarbonate Tab 650 mg PO TID #30 tab 01/29/21 Allergies Allergy/AdvReac Type Severity Reaction Status Date / Time morphine Allergy Severe Rash/Hives Verified 01/29/21 13:56 adhesive tape Allergy Rash/Hives Verified 01/29/21 13:56 Review of Systems ROS Statement: Those systems with pertinent positive or pertinent negative responses have been documented in the HPI. ROS Other: All systems not noted in ROS Statement are negative. Past Medical History Past Medical History: Diabetes Mellitus, Deep Vein Thrombosis (DVT), Hyperlipidemia, Myocardial Infarction (ID), Vascular Disorder Additional Past Medical History / Comment(s): ANKLE SWELLING (STARTED ON FUROSEMIDE). DEAF IN RIGHT EAR. ID [id number], DVT X6 LEFT LEG, HX KIDNEY STONES, PVD LEFT LEG., HX OF V-TACH, CARDIOMYOPATHY., SEE CARDIOLOGY H & P. Last Myocardial Infarction Date:: 2015 History of Any Multi-Drug Resistant Organisms: None Reported Past Surgical History: AICD, Cardiac Ablation, Cholecystectomy, Coronary Bypass/CABG, Heart Catheterization, Hernia Repair, Pacemaker, Tonsillectomy Additional Past Surgical History / Comment(s): left inguinal hernia, 2013 CABG-4 vessel, PACEMAKER/[employer] Past Anesthesia/Blood Transfusion Reactions: Postoperative Nausea & Vomiting (PONV) Type of Cardiac Device: Permanent Pacemaker, AICD Device Placement Date:: 04/04/2017 Past Psychological History: No Psychological Hx Reported Smoking Status: Current every day smoker Past Alcohol Use History: None Reported Past Drug Use History: None Reported - Past Family History Mother Family Medical History: No Reported History Additional Family Medical History / Comment(s): Mother is 82 yrs old. Father Family Medical History: CVA/TIA Additional Family Medical History / Comment(s): Father from CVA at the age of 47 yrs. Brother(s) Family Medical History: AICD/Pacemaker General Exam Limitations: no limitations General appearance: alert, in no apparent distress Head exam: Present: atraumatic, normocephalic, normal inspection Eye exam: Present: normal appearance, PERRL, EOMI. Absent: scleral icterus, conjunctival injection, periorbital swelling ENT exam: Present: normal exam, mucous membranes moist Neck exam: Present: normal inspection. Absent: tenderness, meningismus, lymphadenopathy Respiratory exam: Present: normal lung sounds bilaterally. Absent: respiratory distress, wheezes, rales, rhonchi, stridor Cardiovascular Exam: Present: regular rate, normal rhythm, normal heart sounds. Absent: systolic murmur, diastolic murmur, rubs, gallop, clicks GI/Abdominal exam: Present: soft, normal bowel sounds. Absent: distended, tenderness, guarding, rebound, rigid Extremities exam: Present: normal inspection, full ROM, normal capillary refill. Absent: tenderness, pedal edema, joint swelling, calf tenderness Back exam: Present: normal inspection Neurological exam: Present: alert, oriented X3, CN II-XII intact Psychiatric exam: Present: normal affect, normal mood Skin exam: Present: warm, dry, intact, normal color. Absent: rash Course Vital Signs 01/29/21 01/29/21 01/29/21 13:53 14:58 16:46 Temperature 98.6 F 98.2 F Pulse Rate 62 64 Pulse Rate [ 62 Bilateral Radial] Respiratory 16 16 Rate Blood Pressure 110/74 112/70 O2 Sat by Pulse 98 98 Oximetry Medical Decision Making - Medical Decision Making Upon arrival patient [place] [id number]. A thorough history and physical exam was performed. Patient states that his respiratory issues have been going on for several months. Also states that his kidney issues have been going on for several months to years. Patient states that he does not want a large evaluation in the emergency room. I did request that we perform a chest x-ray for which the patient did agree to. Chest x-ray demonstrates that he has a small component of pulmonary venous hypertension and interstitial edema. Patient's creatinine is noted to be 4.2 with a BUN of 111 . Previous creatinine in November was 4.3. He was seen by Dr. Soto at that time, placed on sodium bicarb tablets and was suppose to follow up with nephro in 1 week from discharge. Patient states he never followed up with nehpro. As the kidney disease is a chronic issue for the patient I did call and speak with Dr. Raygoza. Patient will be discharged home on sodium bicarb tabs. He does have a follow-up appointment with Dr. Soto on the at 2 pm. He does call while he is in the ER to confirm this appointment. I informed the patient that he must follow-up at this appointment without fail. Continue taking his Lasix and his previous dose. Return to the emergency room for any new or worsening symptoms. Patient was in agreement with the treatment plan and discharged home in stable condition Disposition Clinical Impression: CKD (chronic kidney disease), Pulmonary edema Disposition: HOME SELF-CARE Condition: Stable Instructions (If sedation given, give patient instructions): Chronic Kidney Disease (ED) Additional Instructions: Please follow up with the director insurance as directed on the . Return to the ED should you have any new or worsening symptoms. Take the sodium bicarb tablets as directed. Continue taking your prescribed dose of lasix. Prescriptions: Sodium Bicarbonate Tab 650 mg PO TID #30 tab Is patient prescribed a controlled substance at d/c from ED?: No Referrals: Maurice Hernandez MD [Primary Care Provider] - 1-2 days Yoshi Soto DO [STAFF PHYSICIAN] - 1-2 days Time of Disposition: 16:37
[2021-01-29 16:48] VITALS: BP 112/70; PULSE 64; TEMP 98.2
== END 2021-01-29 16:49 | disposition home or self-care (01) ==
LOC: EC 13:43
DX: E11.22 Type 2 diabetes mellitus with diabetic chronic kidney disease (principal); N18.9 Chronic kidney disease, unspecified; J81.1 Chronic pulmonary edema; I25.10 Atherosclerotic heart disease of native coronary artery without angina pectoris; E78.5 Hyperlipidemia, unspecified; I42.9 Cardiomyopathy, unspecified; I25.2 Old myocardial infarction; F17.200 Nicotine dependence, unspecified, uncomplicated; Z79.82 Long term (current) use of aspirin; Z79.4 Long term (current) use of insulin; Z88.5 Allergy status to narcotic agent; Z86.718 Personal history of other venous thrombosis and embolism; Z87.442 Personal history of urinary calculi; Z90.49 Acquired absence of other specified parts of digestive tract; Z95.0 Presence of cardiac pacemaker
CPT/HCPCS: 71046; 99283

== ENCOUNTER → 2021-01-29 | Outpatient (CLI) | payer BC ==
[2021-01-29 11:14] LABS: ALT 15 U/L (4-49); AST 14 U/L (17-59); African American GFR (CKD) 17 (>60 ml/min/1.73 sqM); Albumin 4.1 g/dL (3.5-5.0); Albumin/Globulin Ratio 1.8; Alkaline Phosphatase 58 U/L (38-126); Anion Gap 13 mmol/L; Calcium 9.8 mg/dL (8.4-10.2); Carbon Dioxide 19 mmol/L (22-30); Chloride 109 mmol/L (98-107); Globulin 2.3 g/dL; Glucose 135 mg/dL (74-99); Magnesium 1.8 mg/dL (1.6-2.3); Non-African American GFR(CKD) 15 (>60 ml/min/1.73 sqM); Sodium 141 mmol/L (137-145); Total Bilirubin 0.6 mg/dL (0.2-1.3); Total Protein 6.4 g/dL (6.3-8.2)
[2021-01-29 11:16] LABS: Blood Urea Nitrogen 111 mg/dL (9-20)
== END | disposition home or self-care (01) ==
LOC: LABWHC1 10:11
PROVIDERS: ATTEND Nurse Practitioner Adult Health
DX: I11.0 Hypertensive heart disease with heart failure (principal); I50.23 Acute on chronic systolic (congestive) heart failure
CPT/HCPCS: 36415; 80053; 83735; 83880

== ENCOUNTER → 2021-02-11 | Outpatient (CLI) | payer BC ==
[2021-02-12 12:04] LABS: Hepatitis A Antibody IgM Non-Reactive (Non-Reactive); Hepatitis B Core IgM Non-Reactive (Non-Reactive); Hepatitis B Surface Antigen Non-Reactive (Non-Reactive); Hepatitis C IgG Antibody Non-Reactive (Non-Reactive)
== END | disposition home or self-care (01) ==
LOC: LABWHC1 14:45
PROVIDERS: ATTEND Internal Medicine
DX: N18.5 Chronic kidney disease, stage 5 (principal)
CPT/HCPCS: 36415; 80074

== ENCOUNTER 2021-02-18 12:30 | Inpatient (IN) | payer BC ==
[2021-02-18] MEDS ORDERED: HEPARIN SODIUM 1,000 UN/ML (10ML VL) ONE (15:38)
[2021-02-18] MEDS ORDERED: MIDAZOLAM 2 MG/2 ML VIAL IV ONE (15:59)
[2021-02-18] MEDS: HEPARIN SODIUM 1,000 UN/ML (10ML VL) IV ONE ×2 (16:01→16:15)
[2021-02-18] MEDS ORDERED: IV FLUID CONTINUATION 300 ML IV ONE (16:01)
[2021-02-18] MEDS ORDERED: NITROGLYCERIN 1000MCG/10ML SYRINGE INTRACORON ONE (16:10)
[2021-02-18] MEDS ORDERED: CLOPIDOGREL 75 MG TAB ONE (16:18)
[2021-02-18] MEDS ORDERED: CLOPIDOGREL 75 MG TAB PO ONE (16:20)
[2021-02-18] MEDS ORDERED: FUROSEMIDE 10 MG/ML 4 ML VIAL ONE (16:20)
[2021-02-18] MEDS ORDERED: FUROSEMIDE 10 MG/ML 4 ML VIAL IV ONE (16:22)
[2021-02-18] MEDS ORDERED: IOPAMIDOL-370 125ML BTL INJ ONE (16:23)
[2021-02-18] MEDS ORDERED: ATROPINE SULFATE 0.1 MG/ML 10ML SYRINGE IV PRN (16:32)
[2021-02-18] MEDS ORDERED: HEPARIN SODIUM 1,000 UN/ML (10ML VL) IV ONE (16:32)
[2021-02-18] MEDS ORDERED: MAG HYDROX/AL HYDROX/SIMETH 30 ML CUP PO PRN (16:32)
[2021-02-18] MEDS ORDERED: RX INFO: IV CONTRAST WAS GIVEN 1 EACH MISC MISCELLANE PRN (16:32)
[2021-02-18] MEDS ORDERED: NITROGLYCERIN SL TABS 0.4 MG TAB SUBLINGUAL PRN ×2 (16:32→16:35)
[2021-02-18] MEDS ORDERED: ZOLPIDEM 5 MG TAB PO PRN (16:32)
[2021-02-18] MEDS ORDERED: SODIUM CHLORIDE 0.9% 1,000 ML IV SCH (16:45)
[2021-02-18] MEDS ORDERED: FUROSEMIDE 10 MG/ML 10 ML VIAL IV STA (18:06)
--- NOTE | 2021-02-18 18:13 | PTCA ---
PERCUTANEOUSTRANS CORORONARY ANGIOGRAPHY DATE OF SERVICE: 02/18/2021. PERFORMING PHYSICIAN: Eddie Parson MD. PROCEDURE PERFORMED: 1. Successful stenting of the first diagonal branch of the LAD using a 3.0 x 38 mm Xience drug-eluting stent with an excellent angiographic result. 2. Successful stenting of the ramus intermedius coronary artery using a 2.5 x 8 mm Xience drug-eluting stent with an excellent angiographic result. INDICATION: This is a 55-year-old gentleman who sees Dr. Freedman regularly who was diagnosed with acute xrx-VN-bqxnmpueg myocardial infarction earlier today at [facility]. He underwent a heart catheterization there and that revealed severe triple- vessel coronary artery disease. He was found to have patent BURNHAM to LAD and patent SVG to RCA with occluded SVG to left circumflex as well as diagonal. He was brought today to undergo PCI of the diagonal as well as ramus intermedius. APPROACH: Right common femoral artery. COMPLICATIONS: None. LEVEL OF SEDATION: Moderate, with sedation length of 27 minutes. PROCEDURE DESCRIPTION: Please refer to diagnostic heart catheterization that was performed earlier today at [facility]. I did exchange my 11 cm 6-Hungarian for another 11 cm 6-Hungarian sheath over an 0.035 Glidewire. Subsequently anticoagulation was initiated using heparin, with continuous ACT monitoring throughout the procedure. After that I did engage the left main using an EBU guide. I did wire the diagonal using a run-through wire. Angioplasty was performed using a 3.0 x 20 mm balloon before I deployed a 3.0 x 38 mm Xience drug- eluting stent where the stent was positioned under fluoroscopic guidance and deployed under 18 atmospheres for 20 seconds. The following angiogram showed excellent angiographic results and the procedure was completed without any complication on the diagonal. Subsequently I directed my wire toward the ramus intermedius and I did direct stenting on the lesion in the ramus intermedius. Another 2.5 x 8 mm another Xience drug-eluting stent was deployed and the stent was positioned under fluoroscopic guidance and deployed under fluoroscopic guidance as well. The following angiogram showed excellent angiographic results and the procedure was completed without any complication. POSTPROCEDURE MANAGEMENT: 1. Dual anti-platelet therapy. 2. Aggressive cholesterol control. 3. Risk factor modifications. 4. Follow up with the patient. MMODL / IJN: [id number] /
[2021-02-18] MEDS: carvediloL 12.5 MG TAB PO SCH (18:30)
[2021-02-18] MEDS: ACETAMINOPHEN TAB 325 MG TAB PO SCH ×2 (18:31→23:02)
[2021-02-18] MEDS ORDERED: NON FORMULARY DRUG (Insulin Glargine,Hum.Rec.Anlog [Basaglar Kwikpen U-100] 100 UNIT/ML In SQ SCH (21:00)
[2021-02-18 21:21] LABS: Glucose,Whole Blood 167 mg/dL (75-99)
[2021-02-18] MEDS ORDERED: SODIUM BICARBONATE TAB 650 MG TAB PO SCH (22:00)
[2021-02-18] MEDS ORDERED: INSULIN DETEMIR (LEVEMIR) 100 UNIT/ML SYR SQ SCH (22:15)
[2021-02-18] MEDS: DOCUSATE 100 MG CAP PO SCH (22:57)
[2021-02-18] MEDS: INSULIN ASPART (NovoLOG) 100 UNIT/ML VIAL SQ SCH (23:01)
[2021-02-19] MEDS: ACETAMINOPHEN TAB 325 MG TAB PO SCH ×3 (06:21→17:02)
[2021-02-19 06:24] LABS: Glucose,Whole Blood 143 mg/dL (75-99)
[2021-02-19] MEDS: INSULIN ASPART (NovoLOG) 100 UNIT/ML VIAL SQ SCH ×3 (06:31→17:01)
[2021-02-19] MEDS: carvediloL 12.5 MG TAB PO SCH ×2 (06:31→18:38)
[2021-02-19 07:44] LABS: HCT 28.3 % (39.0-53.0); HGB 9.1 gm/dL (13.0-17.5); Hypochromasia Slight; MCH 28.8 pg (25.0-35.0); MCHC 32.2 g/dL (31.0-37.0); MCV 89.3 fL (80.0-100.0); Mean Platelet Volume 8.9; Platelet Count 240 k/uL (150-450); RBC 3.17 m/uL (4.30-5.90); RDW 15.7 % (11.5-15.5); WBC 5.6 k/uL (3.8-10.6)
[2021-02-19 07:55] LABS: Calcium 9.4 mg/dL (8.4-10.2); Potassium 4.1 mmol/L (3.5-5.1)
[2021-02-19] MEDS: DOCUSATE 100 MG CAP PO SCH (08:03)
[2021-02-19] MEDS ORDERED: ASPIRIN 81 MG PO SCH (09:00)
[2021-02-19] MEDS ORDERED: ESCITALOPRAM 10 MG TAB PO SCH (09:00)
[2021-02-19] MEDS ORDERED: ATORVASTATIN 80 MG TAB PO SCH (09:00)
[2021-02-19] MEDS ORDERED: CLOPIDOGREL 75 MG TAB PO SCH (09:00)
[2021-02-19] MEDS ORDERED: FUROSEMIDE 40 MG TAB PO SCH (09:00)
[2021-02-19 10:46] VITALS: BMI 29.5
[2021-02-19 11:56] LABS: Glucose,Whole Blood 231 mg/dL (75-99)
--- NOTE | 2021-02-19 12:35 | P.HPIM ---
History of Present Illness H&P Date: 02/19/21 Chief Complaint: SP Cath at [facility], TVD History and Physical and Discharge Summary This is a 55-year-old gentleman with past medical history of CAD, CABG, CHF, ischemic cardiomyopathy, diabetes mellitus, chronic DVT, hypertension, hyperlipidemia, nicotine dependence-quit 3 weeks ago and multiple other medical issues, status post successful stenting of the first diagonal branch of the LAD and ramus in a patient diagnosed with acute non-STEMI at [facility] status post heart cath reporting severe triple vessel CAD. Tolerated procedures well. Maintained on dual antiplatelet therapy, statin with risk factor modifications reinforced. Ambulating in hallway, tolerating exertion well. Denies chest pain, palpitations, shortness of breath. Telemetry sinus rhythm with first-degree AV block. Patient recently had right groin dialysis catheter placed and is scheduled for fistula placement next Monday with Dr. Lima. Received hemodialysis last night. Please refer to records from [facility] for specific details. Significant clinical improvement.. Review of Systems ROS Statement: Those systems with pertinent positive or pertinent negative responses have been documented in the HPI. ROS Other: All systems not noted in ROS Statement are negative. Past Medical History Past Medical History: Diabetes Mellitus, Deep Vein Thrombosis (DVT), Hyperlipidemia, Myocardial Infarction (DC), Vascular Disorder Additional Past Medical History / Comment(s): ANKLE SWELLING (STARTED ON FUROSEMIDE). DEAF IN RIGHT EAR. [place] X7, DVT X6 LEFT LEG, HX KIDNEY STONES, PVD LEFT LEG., HX OF V-TACH, CARDIOMYOPATHY., SEE CARDIOLOGY H & P., suspected COVID May 2019 Last Myocardial Infarction Date:: 2015 History of Any Multi-Drug Resistant Organisms: None Reported Past Surgical History: AICD, Cardiac Ablation, Cholecystectomy, Coronary Bypass/CABG, Heart Catheterization, Hernia Repair, Pacemaker, Tonsillectomy Additional Past Surgical History / Comment(s): left inguinal hernia, 2013 CABG-4 vessel, PACEMAKER/DEFIB-[employer] Past Anesthesia/Blood Transfusion Reactions: Postoperative Nausea & Vomiting (PONV) Type of Cardiac Device: Permanent Pacemaker, AICD Device Placement Date:: 04/04/2017 Past Psychological History: No Psychological Hx Reported Additional Psychological History / Comment(s): . Smoking Status: Never smoker Past Alcohol Use History: None Reported Additional Past Alcohol Use History / Comment(s): Pt started smoking at the age of 18 , SMOKES 1PPD. QUIT 2019. Past Drug Use History: None Reported - Past Family History Mother Family Medical History: No Reported History Additional Family Medical History / Comment(s): Mother is 82 yrs old. Father Family Medical History: CVA/TIA Additional Family Medical History / Comment(s): Father from CVA at the age of 47 yrs. Brother(s) Family Medical History: AICD/Pacemaker Medications and Allergies Home Medications Medication Instructions Recorded Confirmed Type Nitroglycerin Sl Tabs [Nitrostat] 0.4 mg SUBLINGUAL Q5M PRN #100 tab 02/21/16 02/18/21 Rx Aspirin [Adult Low Dose Aspirin EC] 81 mg PO DAILY 03/31/17 02/18/21 History Escitalopram [Lexapro] 10 mg PO HS 03/31/17 02/18/21 History Rosuvastatin Calcium [Crestor] 40 mg PO DAILY 03/31/17 02/18/21 History Carvedilol [Coreg] 12.5 mg PO BID 06/20/19 02/18/21 History Dulaglutide [Trulicity] 1.5 mg SQ BARBER 02/18/21 02/18/21 History Insulin Glargine,Hum.rec.anlog 26 unit SQ DAILY@1600 02/18/21 02/18/21 History [Fallonaglyung Guerin U-100] calcitrioL [Calcitriol] 0.5 mcg PO BARBER 02/18/21 02/18/21 History Clopidogrel [Plavix] 75 mg PO DAILY #90 tab 02/19/21 Rx Docusate [Colace] 100 mg PO BID cap 02/19/21 Rx Furosemide [Lasix] 40 mg PO DAILY #0 02/19/21 02/18/21 Rx Allergies Allergy/AdvReac Type Severity Reaction Status Date / Time morphine Allergy Severe Rash/Hives Verified 02/18/21 17:35 adhesive tape Allergy Rash/Hives Verified 02/18/21 17:35 Physical Exam Vitals: Vital Signs Temp Pulse Resp BP Pulse Ox 02/19/21 08:00 97.2 F L 72 16 115/76 97 02/19/21 06:24 17 100 02/19/21 03:47 98 F 86 20 122/85 99 02/19/21 00:00 97.6 F 88 20 138/88 99 02/18/21 23:44 156/89 02/18/21 21:00 83 18 134/93 99 02/18/21 20:00 98 F 84 18 133/87 98 02/18/21 19:00 81 16 136/93 100 02/18/21 18:30 86 18 147/94 97 02/18/21 18:00 84 18 140/85 97 02/18/21 17:45 84 16 139/84 93 L 02/18/21 17:30 85 16 126/83 92 L 02/18/21 17:15 98.1 F 88 22 131/86 97 Intake and Output 02/18/21 02/19/21 02/19/21 22:59 06:59 14:59 Intake Total 150 540 120 Output Total 500 2600 Balance -350 -2060 120 Intake: IV 150 Oral 240 120 Hemodialysis 300 Output: Urine 500 1300 Hemodialysis 1300 Other: Voiding Method Toilet Toilet # Voids 1 # Bowel Movements 1 Weight 93.5 kg 93.2 kg 93.2 kg - Exam PHYSICAL EXAM: VITAL SIGNS: As above GENERAL: Alert and oriented 3, Sitting up in bed, no acute distress HEENT: Conjunctivae normal. eyes normal. Oral mucosa moist NECK: Supple, No JVD CARDIOVASCULAR: S1, S2 regular. Systolic murmur RESPIRATION: Bilateral bases diminished. No rhonchi or crackles. ABDOMEN: Soft, nondistended, nontender, no masses palpable, no guarding ,Positive Bowel sounds. LEGS: No edema. no swelling, intact peripheral pulses NERVOUS SYSTEM: Cranial N 2-12 grossly normal. No focal deficits. Strength and sensation grossly intact. Skin: Warm and dry, no rash Results CBC & Chem 7: 02/19/21 07:12 02/19/21 07:12 Labs: Abnormal Lab Results - Last 24 Hours (Table) 02/18/21 02/19/21 02/19/21 Range/Units 21:08 06:22 07:12 RBC (4.30-5.90) m/uL Hgb (13.0-17.5) gm/dL Hct (39.0-53.0) % RDW (11.5-15.5) % Carbon Dioxide 21 L (22-30) mmol/L BUN 73 H (9-20) mg/dL Creatinine 3.15 H (0.66-1.25) mg/dL Glucose 130 H (74-99) mg/dL POC Glucose (mg/dL) 167 H 143 H (75-99) mg/dL 02/19/21 02/19/21 Range/Units 07:12 11:55 RBC 3.17 L (4.30-5.90) m/uL Hgb 9.1 L (13.0-17.5) gm/dL Hct 28.3 L (39.0-53.0) % RDW 15.7 H (11.5-15.5) % Carbon Dioxide (22-30) mmol/L BUN (9-20) mg/dL Creatinine (0.66-1.25) mg/dL Glucose (74-99) mg/dL POC Glucose (mg/dL) 231 H (75-99) mg/dL Thrombosis Risk Factor Assmnt - Choose All That Apply Each Factor Represents 1 point: Age 41-60 years, Medical pt on bed rest Thrombosis Risk Factor Assessment Total Risk Factor Score: 2 Thrombosis Risk Factor Assessment Level: Low Risk Assessment and Plan Assessment: Acute NSTEMI, status post cardiac cath reporting triple vessel disease, transferred from [facility], status post PCI of the diagonal as well as ramus intermedius. Chronic renal failure, stage IV, recently progressed to end-stage renal disease requiring hemodialysis. CAD, DC, CABG Chronic CHF, systolic Ischemic cardiomyopathy with AICD Moderate pulmonary hypertension History of VT, status post ablation Diabetes mellitus Chronic DVT Hypertension Hyperlipidemia Plan: Continue on current medication regime ,monitoring and symptomatic treatment. Significant clinical improvement. Cleared by cardiology for discharge. Patient will be discharged home today in a stable condition with guarded prognosis, pending final DC recommendations from both cardiology and nephrology. Pending clearance for discharge from nephrology. Discharge Medication List Nitroglycerin Sl Tabs [Nitrostat] 0.4 mg SUBLINGUAL Q5M PRN #100 tab 02/21/16 [Rx] Aspirin [Adult Low Dose Aspirin EC] 81 mg PO DAILY 03/31/17 [History] Escitalopram [Lexapro] 10 mg PO HS 03/31/17 [History] Rosuvastatin Calcium [Crestor] 40 mg PO DAILY 03/31/17 [History] Carvedilol [Coreg] 12.5 mg PO BID 06/20/19 [History] Dulaglutide [Trulicity] 1.5 mg SQ BARBER 02/18/21 [History] Insulin Glargine,Hum.rec.anlog [Esme Guerin U-100] 26 unit SQ DAILY@1600 02/18/21 [History] calcitrioL [Calcitriol] 0.5 mcg PO BARBER 02/18/21 [History] Clopidogrel [Plavix] 75 mg PO DAILY #90 tab 02/19/21 [Rx] Docusate [Colace] 100 mg PO BID cap 02/19/21 [Rx] Furosemide [Lasix] 40 mg PO DAILY #0 02/19/21 [Rx] The impression and plan of care has been dictated as directed. : I performed a history and examination of this patient, discussed the same with the dictator. I agree with the dictator's note ,documented as a scribe. Any additional findings or plans will be noted.
--- NOTE | 2021-02-19 12:58 | P.PN ---
Subjective This is a pleasant 55 showed male past medical history significant for coronary artery disease status post bypass grafting, hypertension, chronic kidney disease on hemodialysis and dyslipidemia. He follows in the office with Dr. Freedman. He underwent successful PCI of the ramus and diet branch yesterday with Dr. Parson. He has been up and ambulating without difficulty. He has had no symptoms of chest pain or shortness of breath. Blood pressure 115/76 heart rate 72 afebrile maintaining oxygen saturation on room air. Laboratory data reviewed, sodium 142, potassium 4.1, creatinine 3.15. GENERAL: Well-appearing, well-nourished and in no acute distress. NECK: Supple without JVD or thyromegaly. LUNGS: Breath sounds clear to auscultation bilaterally. Respiration equal and unlabored. No wheezes, rales or rhonchi. HEART: Regular rate and rhythm without murmurs, rubs or gallops. S1 and S2 heard. EXTREMITIES: Normal range of motion, no edema. No clubbing or cyanosis. Peripheral pulses intact. Left femoral access site soft, nontender with no evidence of hematoma or ecchymosis. ASSESSMENT NSTEMI Coronary artery disease Chronic kidney disease on hemodialysis Hypertension Dyslipidemia PLAN Clinically stable from a cardiac perspective and we'll antiplatelet therapy. He will undergo dialysis this afternoon and can be discharged thereafter. Currently not prescribed and CHICHI/ARB due to renal failure. Follow-up in the office with Dr. Freedman upon discharge. Prescription for Plavix has been sent to the pharmacy. Nurse Practitioner note has been reviewed, I agree with a documented findings and plan of care. Patient was seen and examined. Objective - Vital Signs Vital signs: Vital Signs Temp 97.2 F L 02/19/21 08:00 Pulse 72 02/19/21 08:00 Resp 16 02/19/21 08:00 BP 115/76 02/19/21 08:00 Pulse Ox 97 02/19/21 08:00 Intake & Output 02/18/21 02/19/21 02/19/21 18:59 06:59 18:59 Intake Total 150 540 120 Output Total 500 2600 Balance -350 120 Weight 93.5 kg 93.2 kg 93.2 kg Intake: IV 150 Oral 240 120 Hemodialysis 300 Output: Urine 500 1300 Hemodialysis 1300 Other: Voiding Method Toilet # Voids 1 # Bowel Movements 1 - Labs CBC & Chem 7: 09/24/21 07:12 02/19/21 07:12 Labs: Abnormal Lab Results - Last 24 Hours (Table) 02/18/21 02/19/21 02/19/21 Range/Units 21:08 06:22 07:12 RBC (4.30-5.90) m/uL Hgb (13.0-17.5) gm/dL Hct (39.0-53.0) % RDW (11.5-15.5) % Carbon Dioxide 21 L (22-30) mmol/L BUN 73 H (9-20) mg/dL Creatinine 3.15 H (0.66-1.25) mg/dL Glucose 130 H (74-99) mg/dL POC Glucose (mg/dL) 167 H 143 H (75-99) mg/dL 02/19/21 02/19/21 Range/Units 07:12 11:55 RBC 3.17 L (4.30-5.90) m/uL Hgb 9.1 L (13.0-17.5) gm/dL Hct 28.3 L (39.0-53.0) % RDW 15.7 H (11.5-15.5) % Carbon Dioxide (22-30) mmol/L BUN (9-20) mg/dL Creatinine (0.66-1.25) mg/dL Glucose (74-99) mg/dL POC Glucose (mg/dL) 231 H (75-99) mg/dL
--- NOTE | 2021-02-19 16:54 | CONS ---
CONSULTATION REASON FOR CONSULT: Renal failure. HISTORY OF PRESENT ILLNESS: Patient is a 55-year-old male with CKD stage 4 to 5. He was supposed to start dialysis as outpatient but presented to [facility] with chest pain. He ruled in for acute [place] and had cardiac catheterization done initially at [facility] and then transferred to [facility] for intervention. The patient had a stent to LAD and stenting of the intermedius coronary artery as well yesterday. He tolerated the procedure well. At this point, patient denies any significant complaints. He has been volume- overloaded. He did have dialysis yesterday and we had about 1.3 L of fluid removed. He is scheduled for hemodialysis again today prior to his discharge. As outpatient, patient is maintained on a Monday, , Monday schedule and he will present for dialysis tomorrow at the clinic. Urine output remains fairly good. No complaints of fever, chills, nausea, vomiting or abdominal pain. PAST MEDICAL HISTORY: CKD stage 5, anemia of chronic disease, CKD mineral bone disorder, type 2 diabetes, history of DVT, hyperlipidemia, coronary artery disease, peripheral vascular disease, hearing loss in the right ear, history of kidney stones, peripheral vascular disease, history of cardiac arrhythmia, history of cardiomyopathy, possible COVID pneumonia in May of 2019. PAST SURGICAL HISTORY: AICD placement, cardiac ablation, cholecystectomy, coronary artery bypass surgery, hernia repair, pacemaker placement, tonsillectomy, left inguinal hernia repair. SOCIAL HISTORY: Negative for smoking, drug abuse or alcohol abuse. MEDICATIONS: Medications prior to admission included Nitrostat, aspirin, Lexapro, Crestor, Coreg, Trulicity, calcitriol, Plavix, Colace, Lasix. ALLERGIES: ALLERGIES include MORPHINE and ADHESIVE TAPE. REVIEW OF SYSTEMS: As per HPI. Other systems negative. PHYSICAL EXAMINATION: On examination, patient is comfortable, awake, alert, oriented x3, not in any acute distress. Blood pressure was 97/61, heart rate 74 per minute. He is afebrile. EXAMINATION OF THE HEART: S1 and S2. EXAMINATION OF LUNGS: Bilateral breath sounds are heard. ABDOMEN: Soft, nontender. LOWER EXTREMITIES: Examination of lower extremities shows 1+ edema bilaterally. 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 LABS: Labs show sodium 142, potassium 4.1, BUN 73, creatinine 3.1, hemoglobin 9.1 g/dL. ASSESSMENT: 1. End-stage renal disease, started hemodialysis. Today will be patient's second treatment and he will have his third treatment tomorrow as outpatient. He currently has a right femoral PermCath, as he is scheduled to have an AV fistula placed in his right arm. 2. Anemia of chronic disease. 3. Status post acute myocardial infarction, status post cardiac catheterization and coronary stent placement x2. 4. Chronic kidney disease mineral bone disorder. 5. Type 2 diabetes. PLAN: Patient is stable for discharge after dialysis. He will follow up as outpatient tomorrow for hemodialysis as outpatient. Continue with diuretics as the patient was taking. MMODL / IJN: [id number] /
[2021-02-19 17:15] LABS: Hemoglobin A1C 6.4 % (4.0-6.0)
[2021-02-19 18:42] VITALS: BP 113/62; PULSE 75; RESP 18; TEMP 97.6
== END 2021-02-19 19:00 | disposition home or self-care (01) | DRG 246 ==
LOC: 3SCARD 15:28
PROVIDERS: ADMIT Family Medicine; ATTEND Family Medicine
PROC: 027135Z Dilation of Coronary Artery, Two Arteries with Two Drug-eluting Intraluminal Devices, Percutaneous Approach (ICD-10-PCS; principal; 2021-02-18 12:30)
PROC: 5A1D70Z Performance of Urinary Filtration, Intermittent, Less than 6 Hours Per Day (ICD-10-PCS; 2021-02-19)
DX: I21.4 Non-ST elevation (NSTEMI) myocardial infarction (principal); N18.6 End stage renal disease; I13.2 Hypertensive heart and chronic kidney disease with heart failure and with stage 5 chronic kidney disease, or end stage renal disease; I25.810 Atherosclerosis of coronary artery bypass graft(s) without angina pectoris; I50.22 Chronic systolic (congestive) heart failure; E11.51 Type 2 diabetes mellitus with diabetic peripheral angiopathy without gangrene; D63.1 Anemia in chronic kidney disease; E11.22 Type 2 diabetes mellitus with diabetic chronic kidney disease; I44.0 Atrioventricular block, first degree; E78.5 Hyperlipidemia, unspecified; H91.91 Unspecified hearing loss, right ear; M89.9 Disorder of bone, unspecified; Z86.19 Personal history of other infectious and parasitic diseases; I25.2 Old myocardial infarction; I25.5 Ischemic cardiomyopathy; I27.20 Pulmonary hypertension, unspecified; Z99.2 Dependence on renal dialysis; Z79.02 Long term (current) use of antithrombotics/antiplatelets; Z79.82 Long term (current) use of aspirin; Z79.899 Other long term (current) drug therapy; Z86.718 Personal history of other venous thrombosis and embolism; Z87.442 Personal history of urinary calculi; Z87.891 Personal history of nicotine dependence; Z95.5 Presence of coronary angioplasty implant and graft; Z95.810 Presence of automatic (implantable) cardiac defibrillator; Z87.19 Personal history of other diseases of the digestive system; Z90.49 Acquired absence of other specified parts of digestive tract; Z86.79 Personal history of other diseases of the circulatory system; Z88.5 Allergy status to narcotic agent; Z91.048 Other nonmedicinal substance allergy status; Z79.4 Long term (current) use of insulin
CPT/HCPCS: 80048; 83036; 85027; 90935

== ENCOUNTER 2021-04-09 09:03 | Day surgery (SDC) | payer BC ==
[2021-04-07 15:12] VITALS: BMI 27.2
[~2021-04-09 09:03] MED LIST changes: +DEXAMETHASONE SOD PHOSPHATE 4 MG/ML 1 ML VIAL IV ONE; -HYDROmorphone 0.5 MG/0.5 ML SYRINGE IVP PRN; +LACTATED RINGERS 1,000 ML IV SCH; -LIDOCAINE 1% (10MG/ML) FOR IV START INTRADERMA PRN; -MIDAZOLAM 2 MG/2 ML VIAL IV PRN; -SCOPOLAMINE 1.5MG/72HR PATCH TRANSDERM ONE; +fentaNYL (PF) 50 MCG/ML 2 ML AMP IV PRN; -fentaNYL (PF) 50 MCG/ML 2 ML AMP IVP PRN
[2021-04-09 10:26] LABS: Glucose,Whole Blood 207 mg/dL (75-99)
[2021-04-09 10:28] LABS: Albumin 4.3 g/dL (3.5-5.0); Calcium 9.9 mg/dL (8.4-10.2); Potassium 3.7 mmol/L (3.5-5.1); Total Bilirubin 0.8 mg/dL (0.2-1.3); Total Protein 7.4 g/dL (6.3-8.2)
[2021-04-09 10:32] LABS: Anisocytosis Slight; Basophils # (A) 0.1 k/uL (0-0.2); Basophils % (A) 1 %; Eosinophils # (A) 0.2 k/uL (0-0.7); Eosinophils % (A) 4 %; HCT 30.3 % (39.0-53.0); HGB 9.9 gm/dL (13.0-17.5); Lymphocytes # (A) 0.6 k/uL (1.0-4.8); Lymphocytes % (A) 12 %; MCH 30.4 pg (25.0-35.0); MCHC 32.7 g/dL (31.0-37.0); MCV 93.1 fL (80.0-100.0); Mean Platelet Volume 8.5; Monocytes # (A) 0.3 k/uL (0-1.0); Monocytes % (A) 6 %; Neutrophils # (A) 3.9 k/uL (1.3-7.7); Neutrophils % (A) 75 %; Platelet Count 135 k/uL (150-450); RBC 3.26 m/uL (4.30-5.90); RDW 16.1 % (11.5-15.5); WBC 5.2 k/uL (3.8-10.6)
[2021-04-09] MEDS ORDERED: PHENYLEPHRINE-0.9% NACL SYG 1,000 MCG/10 ML SYRINGE ONE (11:03)
[2021-04-09] MEDS ORDERED: fentaNYL (PF) 50 MCG/ML 2 ML AMP ONE (11:03)
[2021-04-09] MEDS ORDERED: KETAMINE 10 MG/ML 20 ML VIAL ONE (11:03)
[2021-04-09] MEDS ORDERED: LIDOCAINE 1% INJ 10MG/ML (20 ML MDV) ONE (11:03)
[2021-04-09] MEDS ORDERED: MIDAZOLAM 2 MG/2 ML VIAL ONE (11:03)
[2021-04-09] MEDS ORDERED: PROPOFOL 10 MG/ML 20 ML VIAL IV ONE (11:03)
[2021-04-09] MEDS ORDERED: ePHEDrine 50 MG/ML 1 ML AMP ONE (11:03)
[2021-04-09] MEDS ORDERED: BUPIVACAIN-EPI 0.25%-1:200,000 30 ML VIAL SQ ONE ×2 (11:41)
[2021-04-09] MEDS ORDERED: MINERAL OIL 1 APPLIC/ML OIL TOPICAL ONE (11:42)
[2021-04-09] MEDS ORDERED: ACETAMINOPHEN TAB 325 MG TAB PO PRN (12:05)
[2021-04-09] MEDS ORDERED: NALOXONE 0.4 MG/ML 1 ML VIAL IV PRN (12:05)
[2021-04-09] MEDS ORDERED: HYDROcodone/APAP 5-325MG 1 EACH TAB PO PRN (12:05)
--- NOTE | 2021-04-09 12:11 | P.OP ---
Date of Procedure: 04/09/21 Procedure(s) Performed: PREOPERATIVE DIAGNOSIS: Renal failure POSTOPERATIVE DIAGNOSIS: Same PROCEDURE: Peritoneal dialysis catheter insertion SURGEON: Rosio EBL: Minimal ANESTHESIA: General COMPLICATIONS: None OPERATIVE PROCEDURE: The patient was placed in the operative table in the supine position. The abdomen was prepped and draped in usual sterile fashion. A small vertical incision was made in the right periumbilical location. Dissection down through the subcutaneous tissues took place using electrocautery. The anterior rectus was divided vertically using the scalpel. The rectus was bluntly. The posterior rectus was visualized. An 0 Vicryl pursestring was placed. A small opening in the posterior rectus fascia and peritoneum took place using a Metzenbaum scissors. There were no adhesions to the suture that was placed. The patient did have significant serous ascitic fluid present. Some of this was drained initially and some later. The pigtail catheter was advanced into the pelvis over a stylette. No resistance was met. The inner cuff was secured to the fascia using the 0 Vicryl pursestring that was placed. The catheter was tunneled to an exit site in the right lateral lower quadrant. The catheter was connected to the 1 L bag of saline and approximated 800 mL of saline was easily introduced into the peritoneal cavity. The fluid was then allowed to evacuate. The majority of the fluid was returned. The anterior rectus fascia was then reapproximated using a running 0 Vicryl stitch. The subcutaneous tissues reprepped using 3-0 Vicryl sutures and the skin using 4-0 Monocryl sutures. The outpatient dialysis adapter was applied to the end of the catheter. Sterile dressings were then applied after skin glue was placed over the incision. DISPOSITION: Stable to recovery room
[2021-04-09 12:12] VITALS: TEMP 97.8
[2021-04-09 13:15] VITALS: RESP 16
[2021-04-09 13:29] VITALS: BP 114/74; PULSE 71
== END 2021-04-09 13:51 | disposition home or self-care (01) ==
LOC: OR 09:03
PROVIDERS: ATTEND Surgery
DX: N19 Unspecified kidney failure (principal); E11.9 Type 2 diabetes mellitus without complications; Z86.718 Personal history of other venous thrombosis and embolism; E78.5 Hyperlipidemia, unspecified; I25.2 Old myocardial infarction; Z87.442 Personal history of urinary calculi; Z95.810 Presence of automatic (implantable) cardiac defibrillator; Z95.0 Presence of cardiac pacemaker; Z90.49 Acquired absence of other specified parts of digestive tract; Z82.3 Family history of stroke; Z97.2 Presence of dental prosthetic device (complete) (partial); F17.200 Nicotine dependence, unspecified, uncomplicated; F32.9 Major depressive disorder, single episode, unspecified; Z91.09 Other allergy status, other than to drugs and biological substances; Z79.82 Long term (current) use of aspirin; Z79.84 Long term (current) use of oral hypoglycemic drugs; Z79.4 Long term (current) use of insulin; Z79.899 Other long term (current) drug therapy; Z88.5 Allergy status to narcotic agent
CPT/HCPCS: 80053; 85025; 36561; C1752; J2250; J1100; J0690; J2405; J2001; J3010; J2370; J2704; J1644

== ENCOUNTER 2021-06-07 06:08 | Day surgery (SDC) | payer BC ==
[2021-06-04 09:26] VITALS: BMI 27.6
[~2021-06-07 06:08] MED LIST changes: -DEXAMETHASONE SOD PHOSPHATE 4 MG/ML 1 ML VIAL IV ONE; -LACTATED RINGERS 1,000 ML IV SCH; -ONDANSETRON 4 MG/2 ML VIAL IVP ONE; -fentaNYL (PF) 50 MCG/ML 2 ML AMP IV PRN
[2021-06-07] MEDS ORDERED: ONDANSETRON 4 MG/2 ML VIAL IVP ONE ×2 (06:49→07:32)
[2021-06-07] MEDS ORDERED: HYDROmorphone 0.5 MG/0.5 ML SYRINGE IVP PRN (06:49)
[2021-06-07] MEDS ORDERED: MIDAZOLAM 2 MG/2 ML VIAL IV PRN (06:49)
[2021-06-07] MEDS ORDERED: LACTATED RINGERS 1,000 ML IV SCH (06:49)
[2021-06-07] MEDS ORDERED: DEXAMETHASONE SOD PHOSPHATE 4 MG/ML 1 ML VIAL IV ONE (06:49)
[2021-06-07] MEDS ORDERED: LIDOCAINE 1% (10MG/ML) FOR IV START INTRADERMA PRN (06:49)
[2021-06-07] MEDS ORDERED: LIDOCAINE 1% INJ 10MG/ML (20 ML MDV) ONE (07:24)
[2021-06-07 07:32] LABS: Glucose,Whole Blood 231 mg/dL (75-99)
[2021-06-07] MEDS ORDERED: DEXAMETHASONE SOD PHOSPHATE 4 MG/ML 1 ML VIAL IVP ONE (07:33)
[2021-06-07 07:38] LABS: Anisocytosis Slight; HCT 39.4 % (39.0-53.0); HGB 12.6 gm/dL (13.0-17.5); MCV 97.1 fL (80.0-100.0); Macrocytosis Slight; Mean Platelet Volume 8.7; Platelet Count 152 k/uL (150-450); RBC 4.06 m/uL (4.30-5.90); RDW 16.9 % (11.5-15.5); WBC 6.1 k/uL (3.8-10.6)
--- NOTE | 2021-06-07 07:38 | P.GSHP ---
History of Present Illness H&P Date: 06/07/21 Chief Complaint: Malfunctioning PD catheter 55-year-old male here for peritoneal dialysis catheter removal. Patient and his catheter placed in March. Patient states she was having some difficulty draining Adrian and for that reason wants the catheter removed. He states both of his sisters had similar problems with peritoneal dialysis. He is more comfortable going back to hemodialysis at this point. No pain. Patient did not stop his Plavix for the insertion and also did not stop his Plavix for today's procedure. Past Medical History Past Medical History: Coronary Artery Disease (CAD), Heart Failure, Diabetes Mellitus, Dialysis, Deep Vein Thrombosis (DVT), Hearing Disorder / Deafness, Hyperlipidemia, Myocardial Infarction ([place]), Renal Disease, Vascular Disorder Additional Past Medical History / Comment(s): ANKLE SWELLING. DEAF IN RIGHT EAR. [place] IN LEFT EAR. [place] X7, DVT X6 IN LEFT LEG. HX KIDNEY STONES. PVD LEFT LEG. HX OF V-TACH, CARDIOMYOPATHY. Suspected hx COVID May 2019, "low blood pressure", Hemodialysis TUTHSA. Last Myocardial Infarction Date:: 02/18/21 History of Any Multi-Drug Resistant Organisms: None Reported Past Surgical History: AICD, Cardiac Ablation, Cholecystectomy, Coronary Bypass/CABG, Heart Catheterization, Heart Catheterization With Stent, Hernia Repair, Pacemaker, Tonsillectomy Additional Past Surgical History / Comment(s): Bilateral inguinal hernia repair, CABG-4 vessel 2013, PACEMAKER/DEFIB-[employer], total 2 stents, hemodialysis fistula right arm(not in use), port "right side of neck used for dialysis". Past Anesthesia/Blood Transfusion Reactions: Postoperative Nausea & Vomiting (PONV) Date of Last Stent Placement:: 01/2021 Type of Cardiac Device: Permanent Pacemaker, AICD Device Placement Date:: 04/04/2017 [employer] Past Psychological History: No Psychological Hx Reported Smoking Status: Former smoker Past Alcohol Use History: None Reported Additional Past Alcohol Use History / Comment(s): Started smoking at age 18, smoked 1PPD, quit in 2019. Past Drug Use History: None Reported - Past Family History Mother Family Medical History: No Reported History Additional Family Medical History / Comment(s): . Medications and Allergies Home Medications Medication Instructions Recorded Confirmed Type Nitroglycerin Sl Tabs [Nitrostat] 0.4 mg SUBLINGUAL Q5M PRN #100 tab 02/21/16 Rx Aspirin [Adult Low Dose Aspirin EC] 81 mg PO DAILY 03/31/17 06/04/21 History Escitalopram [Lexapro] 10 mg PO HS 03/31/17 06/07/21 History Rosuvastatin Calcium [Crestor] 40 mg PO DAILY 03/31/17 06/04/21 History Carvedilol [Coreg] 12.5 mg PO BID 06/20/19 06/04/21 History Insulin Glargine,Hum.rec.anlog 1 - 26 unit SQ SUMOWEFR PRN 02/18/21 06/04/21 History [Basaglar Kwikpen U-100] calcitrioL [Calcitriol] 0.5 mcg PO DAILY 02/18/21 06/04/21 History Clopidogrel [Plavix] 75 mg PO DAILY #90 tab 02/19/21 06/07/21 Rx Dulaglutide [Trulicity] 3 mg SQ BARBER 04/07/21 06/04/21 History Folic Acid-Vit B Complex-Vit C 1 mg PO TUTHSA 04/07/21 06/04/21 History [Nephrocaps] Furosemide [Lasix] 40 mg PO BID 04/07/21 06/04/21 History Insulin Lispro [humaLOG Kwikpen] 0 - 40 unit SQ TUTHSA PRN 04/07/21 06/04/21 History Iron 50 Mg 50 mg IJ DAILY 04/07/21 06/04/21 History Sevelamer Carbonate 800 mg PO TID-W/MEALS 04/07/21 06/04/21 History Allergies Allergy/AdvReac Type Severity Reaction Status Date / Time morphine Allergy Severe Rash/Hives Verified 06/07/21 07:00 adhesive tape Allergy Rash/Hives Verified 06/07/21 07:00 Surgical - Exam Vital Signs Temp Resp BP Pulse Ox 98.0 F 16 114/81 97 06/07/21 07:00 06/07/21 07:00 06/07/21 07:00 06/07/21 07:00 Physical exam: General: Well-developed, well-nourished HEENT: Normocephalic, sclerae nonicteric Abdomen: Nontender, nondistended, PD cath in place Extremities: No edema Neuro: Alert and oriented Results - Labs Abnormal Lab Results - Last 24 Hours (Table) 06/07/21 Range/Units 07:21 POC Glucose (mg/dL) 231 H (75-99) mg/dL Assessment and Plan (1) Peritoneal dialysis catheter dysfunction Narrative/Plan: Will proceed with catheter removal at this time. Risks of bleeding, infection, scarring, bowel injury reviewed. He understands and wishes to proceed. Current Visit: Yes Status: Acute Code(s): T85.611A - BREAKDOWN OF INTRAPERITONEAL DIALYSIS CATHETER, INIT SNOMED Code(s): 636701557
[2021-06-07] MEDS ORDERED: PROPOFOL 10 MG/ML 20 ML VIAL IV ONE (07:40)
[2021-06-07] MEDS ORDERED: MIDAZOLAM 2 MG/2 ML VIAL ONE (07:40)
[2021-06-07] MEDS ORDERED: fentaNYL (PF) 50 MCG/ML 2 ML AMP ONE (07:40)
[2021-06-07] MEDS ORDERED: INSULIN ASPART (NovoLOG) 100 UNIT/ML VIAL SQ ONE ×2 (07:43→10:22)
[2021-06-07] MEDS ORDERED: SODIUM CHLORIDE 0.9% 1,000 ML IV ONE (07:45)
[2021-06-07] MEDS ORDERED: BUPIVACAIN-EPI 0.25%-1:200,000 30 ML VIAL SQ ONE ×3 (07:51→08:09)
[2021-06-07 07:53] LABS: Albumin 4.6 g/dL (3.5-5.0); Calcium 10.1 mg/dL (8.4-10.2); Total Bilirubin 0.8 mg/dL (0.2-1.3); Total Protein 7.9 g/dL (6.3-8.2)
[2021-06-07 08:39] VITALS: TEMP 97.9
[2021-06-07] MEDS ORDERED: NALOXONE 0.4 MG/ML 1 ML VIAL IV PRN (08:40)
[2021-06-07] MEDS ORDERED: HYDROcodone/APAP 5-325MG 1 EACH TAB PO PRN (08:40)
--- NOTE | 2021-06-07 08:40 | P.OP ---
Date of Procedure: 06/07/21 Procedure(s) Performed: PREOPERATIVE DIAGNOSIS: Renal failure POSTOPERATIVE DIAGNOSIS: Same PROCEDURE: PD cath removal SURGEON: Rosio EBL: 10 mL ANESTHESIA: Sedation and local COMPLICATIONS: None OPERATIVE PROCEDURE: Patient was placed in the supine position. The abdomen was prepped and draped in usual sterile fashion. The previous paramedian incision was re-incised after localizing the skin. The subcutaneous tissues were divided using electrocautery. Blunt dissection around the cuff that was present at the fascia and peritoneum took place. The cuff was fully mobilized. The catheter was removed from the perineal cavity. The outer cuff was dissected from the saphenous fascia using electrocautery. The catheter was cut on the other side of that cuff and the catheter was removed. The fascial defect was closed using a single [id number] 0 Vicryl stitch. The subcutaneous tissues were closed using 3-0 Vicryl sutures and the skin using 4-0 Monocryl sutures. Skin glue and sterile dressings were applied. DISPOSITION: Stable to recovery room
[2021-06-07 10:04] VITALS: PULSE 75; RESP 18
[2021-06-07 10:27] VITALS: BP 103/74
[2021-06-07 10:36] LABS: Glucose,Whole Blood 243 mg/dL (75-99)
== END 2021-06-07 11:03 | disposition home or self-care (01) ==
LOC: OR 06:08
PROVIDERS: ATTEND Surgery
DX: T82.41XA Breakdown (mechanical) of vascular dialysis catheter, initial encounter (principal); I25.10 Atherosclerotic heart disease of native coronary artery without angina pectoris; E11.9 Type 2 diabetes mellitus without complications; I50.9 Heart failure, unspecified; N19 Unspecified kidney failure; Z86.718 Personal history of other venous thrombosis and embolism; E78.5 Hyperlipidemia, unspecified; I25.2 Old myocardial infarction; I42.9 Cardiomyopathy, unspecified; I95.9 Hypotension, unspecified; H91.91 Unspecified hearing loss, right ear; H91.92 Unspecified hearing loss, left ear; Z87.442 Personal history of urinary calculi; Z86.16 Personal history of COVID-19; Z95.810 Presence of automatic (implantable) cardiac defibrillator; Z90.49 Acquired absence of other specified parts of digestive tract; Z95.1 Presence of aortocoronary bypass graft; Z95.5 Presence of coronary angioplasty implant and graft; Z95.0 Presence of cardiac pacemaker; Z98.890 Other specified postprocedural states; Z87.891 Personal history of nicotine dependence; Z79.02 Long term (current) use of antithrombotics/antiplatelets; Z79.82 Long term (current) use of aspirin; Z79.4 Long term (current) use of insulin; Z79.899 Other long term (current) drug therapy; Z88.5 Allergy status to narcotic agent; Z91.09 Other allergy status, other than to drugs and biological substances
CPT/HCPCS: 49422; 80053; 85027; J2250; J1100; J0690; J2405; J3010; J2704; 93005

== ENCOUNTER 2021-07-02 03:34 | Observation (INO) | payer BC ==
[2021-07-02 04:24] LABS: Anisocytosis Slight; Basophils # (A) 0.1 k/uL (0-0.2); Basophils % (A) 1 %; Eosinophils # (A) 0.1 k/uL (0-0.7); Eosinophils % (A) 1 %; HCT 37.9 % (39.0-53.0); HGB 12.5 gm/dL (13.0-17.5); Lymphocytes # (A) 0.8 k/uL (1.0-4.8); Lymphocytes % (A) 12 %; MCH 32.1 pg (25.0-35.0); MCV 97.3 fL (80.0-100.0); Macrocytosis Slight; Mean Platelet Volume 9.9; Monocytes # (A) 0.4 k/uL (0-1.0); Monocytes % (A) 6 %; Neutrophils # (A) 5.6 k/uL (1.3-7.7); Neutrophils % (A) 79 %; Platelet Count 112 k/uL (150-450)
[2021-07-02 04:35] LABS: Albumin 4.8 g/dL (3.5-5.0); Calcium 9.7 mg/dL (8.4-10.2); Magnesium 2.1 mg/dL (1.6-2.3); Total Bilirubin 1.3 mg/dL (0.2-1.3); Total Protein 7.9 g/dL (6.3-8.2)
[2021-07-02 04:39] LABS: INR 1.3 (<1.2); Partial Thromboplastin Time 22.9 sec (22.0-30.0); Prothrombin Time 13.4 sec (9.0-12.0)
[2021-07-02] MEDS ORDERED: NITROGLYCERIN-D5W PMX 50 MG in DEXTROSE/WATER 1 250ML.BAG IV ONE (05:00)
--- NOTE | 2021-07-02 05:00 | XR ---
EXAMINATION TYPE: XR chest 2V DATE OF EXAM: 07/02/2021 COMPARISON: 01/29/2021 HISTORY: Chest pain TECHNIQUE: 2 views FINDINGS: Heart is enlarged. There is left axillary pacemaker. There is right central venous catheter with tip in the right atrium. There is mild pulmonary congestion. There is relative poor inspiration . IMPRESSION: Mild congestion with slight decreased inspiration compared to old exam. No obvious heart failure. Cardiomegaly unchanged.
[2021-07-02] MEDS ORDERED: HEPARIN SODIUM 1,000 UN/ML (10ML VL) IV ONE (05:01)
[2021-07-02] MEDS ORDERED: HEPARIN SODIUM 1,000 UN/ML (10ML VL) IV PRN (05:01)
[2021-07-02] MEDS ORDERED: HEPARIN SOD,PORK IN 0.45% NACL 25,000 UNIT in 0.45% NACL 1 250ML.BAG IV SCH (05:15)
[2021-07-02] MEDS ORDERED: NITROGLYCERIN SL TABS 0.4 MG TAB SUBLINGUAL PRN (06:53)
--- NOTE | 2021-07-02 07:09 | ED ---
SOB HPI - General Chief Complaint: Shortness of Breath Stated Complaint: Chest pain, SOB Time Seen by Provider: 07/02/21 03:54 Source: patient, family Mode of arrival: ambulatory - History of Present Illness MD Complaint: shortness of breath, chest pain -: days(s) Radiation: left arm Severity: moderate Quality: dull Consistency: constant Improves With: nothing Worsens With: nothing Known History Of: other Associated Symptoms: chest pain, orthopnea, lower abdominal swelling Treatments Prior to Arrival: none - Related Data Home Medications Medication Instructions Recorded Confirmed Aspirin [Adult Low Dose Aspirin EC] 81 mg PO DAILY 03/31/17 06/04/21 Escitalopram [Lexapro] 10 mg PO HS 03/31/17 06/07/21 Rosuvastatin Calcium [Crestor] 40 mg PO DAILY 03/31/17 06/04/21 Carvedilol [Coreg] 12.5 mg PO BID 06/20/19 06/04/21 Insulin Glargine,Hum.rec.anlog 1 - 26 unit SQ SUMOWEFR PRN 02/18/21 06/04/21 [Basaglar Kwikpen U-100] calcitrioL [Calcitriol] 0.5 mcg PO DAILY 02/18/21 06/04/21 Dulaglutide [Trulicity] 3 mg SQ BARBER 04/07/21 06/04/21 Folic Acid-Vit B Complex-Vit C 1 mg PO TUTHSA 04/07/21 06/04/21 [Nephrocaps] Furosemide [Lasix] 40 mg PO BID 04/07/21 06/04/21 Insulin Lispro [humaLOG Kwikpen] 0 - 40 unit SQ TUTHSA PRN 04/07/21 06/04/21 Iron 50 Mg 50 mg IJ DAILY 04/07/21 06/04/21 Sevelamer Carbonate 800 mg PO TID-W/MEALS 04/07/21 06/04/21 Previous Rx's Medication Instructions Recorded Nitroglycerin Sl Tabs [Nitrostat] 0.4 mg SUBLINGUAL Q5M PRN #100 tab 02/21/16 Clopidogrel [Plavix] 75 mg PO DAILY #90 tab 02/19/21 HYDROcodone/APAP 5-325MG [[place] 1 tab PO Q6HR PRN 3 Days #6 tab 06/07/21 5-325] Allergies Allergy/AdvReac Type Severity Reaction Status Date / Time morphine Allergy Severe Rash/Hives Verified 07/02/21 07:02 adhesive tape Allergy Rash/Hives Verified 07/02/21 07:02 Review of Systems ROS Statement: Those systems with pertinent positive or pertinent negative responses have been documented in the HPI. ROS Other: All systems not noted in ROS Statement are negative. Constitutional: Denies: fever, chills Respiratory: Reports: dyspnea. Denies: cough, wheezes Cardiovascular: Reports: chest pain, orthopnea, edema. Denies: palpitations, syncope Gastrointestinal: Denies: abdominal pain, nausea, vomiting, diarrhea Genitourinary: Denies: dysuria, hematuria Musculoskeletal: Denies: back pain Skin: Denies: rash Neurological: Denies: headache, weakness Past Medical History Past Medical History: Coronary Artery Disease (CAD), Heart Failure, Diabetes Mellitus, Dialysis, Deep Vein Thrombosis (DVT), Hearing Disorder / Deafness, Hyperlipidemia, Myocardial Infarction ([place]), Renal Disease, Vascular Disorder Additional Past Medical History / Comment(s): ANKLE SWELLING. DEAF IN RIGHT EAR. [place] IN LEFT EAR. [place] X7, DVT X6 IN LEFT LEG. HX KIDNEY STONES. PVD LEFT LEG. HX OF V-TACH, CARDIOMYOPATHY. Suspected hx COVID May 2019, "low blood pressure", Hemodialysis [facility]. Last Myocardial Infarction Date:: 02/18/21 History of Any Multi-Drug Resistant Organisms: None Reported Past Surgical History: AICD, Cardiac Ablation, Cholecystectomy, Coronary Bypass/CABG, Heart Catheterization, Heart Catheterization With Stent, Hernia Repair, Pacemaker, Tonsillectomy Additional Past Surgical History / Comment(s): Bilateral inguinal hernia repair, CABG-4 vessel 2013, PACEMAKER/[employer], total 2 stents, hemodialysis fistula right arm(not in use), port "right side of neck used for dialysis". Past Anesthesia/Blood Transfusion Reactions: Postoperative Nausea & Vomiting (PONV) Date of Last Stent Placement:: 01/2021 Type of Cardiac Device: Permanent Pacemaker, AICD Device Placement Date:: 04/04/2017 [employer] [place] [employer] Past Psychological History: No Psychological Hx Reported Smoking Status: Former smoker Past Alcohol Use History: None Reported Past Drug Use History: None Reported - Past Family History Mother Family Medical History: No Reported History Additional Family Medical History / Comment(s): . General Exam General appearance: alert, in no apparent distress Head exam: Present: atraumatic, normocephalic Eye exam: Present: normal appearance. Absent: scleral icterus, conjunctival injection Neck exam: Present: normal inspection Respiratory exam: Present: rales. Absent: respiratory distress, wheezes, rhonchi, stridor Cardiovascular Exam: Present: regular rate, normal rhythm, normal heart sounds, systolic murmur, gallop. Absent: diastolic murmur, rubs GI/Abdominal exam: Present: soft. Absent: distended, tenderness, guarding, rebound, rigid, mass Extremities exam: Present: normal inspection, normal capillary refill, pedal edema. Absent: calf tenderness Back exam: Present: normal inspection Neurological exam: Present: alert Skin exam: Present: warm, dry, intact, normal color. Absent: rash Course Vital Signs 07/02/21 07/02/21 03:36 05:24 Temperature 97.8 F Pulse Rate 86 81 Respiratory 19 18 Rate Blood Pressure 95/73 106/82 O2 Sat by Pulse 99 94 L Oximetry Medical Decision Making - Medical Decision Making Patient's 55-year-old man with shortness of breath, orthopnea, chest tightness and left arm pain. He states the symptoms are very similar to what he had with previous [place]. Patient is chest pain-free with treatment here. He does have mild elevation of troponin and differential includes the end-stage renal disease versus acute coronary syndrome. Patient be admitted for cardiology consultation, serial cardiac enzymes, telemetry monitoring. Nephrology is also consulted. - Lab Data Result diagrams: 07/02/21 04:10 07/02/21 04:10 Lab Results 07/02/21 07/02/21 07/02/21 Range/Units 04:10 04:10 04:10 WBC 7.0 (3.8-10.6) k/uL RBC 3.90 L (4.30-5.90) m/uL Hgb 12.5 L (13.0-17.5) gm/dL Hct 37.9 L (39.0-53.0) % MCV 97.3 (80.0-100.0) fL MCH 32.1 (25.0-35.0) pg MCHC 33.0 (31.0-37.0) g/dL RDW 16.0 H (11.5-15.5) % Plt Count 112 L (150-450) k/uL MPV 9.9 Neutrophils % 79 % Lymphocytes % 12 % Monocytes % 6 % Eosinophils % 1 % Basophils % 1 % Neutrophils # 5.6 (1.3-7.7) k/uL Lymphocytes # 0.8 L (1.0-4.8) k/uL Monocytes # 0.4 (0-1.0) k/uL Eosinophils # 0.1 (0-0.7) k/uL Basophils # 0.1 (0-0.2) k/uL Anisocytosis Slight Macrocytosis Slight PT 13.4 H (9.0-12.0) sec INR 1.3 H (<1.2) APTT 22.9 (22.0-30.0) sec D-Dimer 2.67 H (<0.60) mg/L FEU Sodium 137 (137-145) mmol/L Potassium 4.0 (3.5-5.1) mmol/L Chloride 93 L (98-107) mmol/L Carbon Dioxide 25 (22-30) mmol/L Anion Gap 19 mmol/L BUN 52 H (9-20) mg/dL Creatinine 4.10 H (0.66-1.25) mg/dL Est GFR (CKD-EPI)AfAm 18 (>60 ml/min/1.73 sqM) Est GFR (CKD-EPI)NonAf 15 (>60 ml/min/1.73 sqM) Glucose 255 H (74-99) mg/dL Calcium 9.7 (8.4-10.2) mg/dL Magnesium 2.1 (1.6-2.3) mg/dL Total Bilirubin 1.3 (0.2-1.3) mg/dL AST 23 (17-59) U/L ALT 19 (4-49) U/L Alkaline Phosphatase 82 (38-126) U/L Troponin I (0.000-0.034) ng/mL NT-Pro-B Natriuret Pep pg/mL Total Protein 7.9 (6.3-8.2) g/dL Albumin 4.8 (3.5-5.0) g/dL Coronavirus (PCR) (Not Detectd) 07/02/21 07/02/21 07/02/21 Range/Units 04:10 04:10 05:27 WBC (3.8-10.6) k/uL RBC (4.30-5.90) m/uL Hgb (13.0-17.5) gm/dL Hct (39.0-53.0) % MCV (80.0-100.0) fL MCH (25.0-35.0) pg MCHC (31.0-37.0) g/dL RDW (11.5-15.5) % Plt Count (150-450) k/uL MPV Neutrophils % % Lymphocytes % % Monocytes % % Eosinophils % % Basophils % % Neutrophils # (1.3-7.7) k/uL Lymphocytes # (1.0-4.8) k/uL Monocytes # (0-1.0) k/uL Eosinophils # (0-0.7) k/uL Basophils # (0-0.2) k/uL Anisocytosis Macrocytosis PT (9.0-12.0) sec INR (<1.2) APTT (22.0-30.0) sec D-Dimer (<0.60) mg/L FEU Sodium (137-145) mmol/L Potassium (3.5-5.1) mmol/L Chloride (98-107) mmol/L Carbon Dioxide (22-30) mmol/L Anion Gap mmol/L BUN (9-20) mg/dL Creatinine (0.66-1.25) mg/dL Est GFR (CKD-EPI)AfAm (>60 ml/min/1.73 sqM) Est GFR (CKD-EPI)NonAf (>60 ml/min/1.73 sqM) Glucose (74-99) mg/dL Calcium (8.4-10.2) mg/dL Magnesium (1.6-2.3) mg/dL Total Bilirubin (0.2-1.3) mg/dL AST (17-59) U/L ALT (4-49) U/L Alkaline Phosphatase (38-126) U/L Troponin I 0.226 H* (0.000-0.034) ng/mL NT-Pro-B Natriuret Pep 84830 pg/mL Total Protein (6.3-8.2) g/dL Albumin (3.5-5.0) g/dL Coronavirus (PCR) Not Detected (Not Detectd) Disposition Clinical Impression: Elevated troponin I level, Chest pain, End stage renal disease Disposition: ADMITTED IP TO THIS HOSP Condition: Fair Is patient prescribed a controlled substance at d/c from ED?: No Referrals: Maurice Hernandez MD [Primary Care Provider] - 1-2 days
--- NOTE | 2021-07-02 08:56 | P.CRDCN ---
History of Present Illness Consult date: 07/02/21 History of present illness: HISTORY OF PRESENT ILLNESS: This is a 55-year-old male with a past medical history significant for coronary artery disease with previous CABG and subsequent multivessel PCI, ischemic cardiomyopathy with previous AICD implantation, congestive heart failure, jugular tachycardia with previous ablation, diabetes, and end-stage renal disease on hemodialysis. Patient follows in the office with Dr. Freedman. We have been asked to see the patient in consultation for chest pain. Patient examined at the bedside in the emergency room. Patient states about 3 days ago he began having shortness of breath which has gotten progressively worse each day. He also reports some discomfort in his left arm and states "it feels like someone punched me in the back of my arm". The patient had an MD in January 2021 with PCI to the LED and ramus intermedius. The patient states his symptoms are exactly the same as in January which concerned him so he came to the emergency room. The patient denies any chest pain or pressure yesterday or today. He denies any cough or congestion. He denies any fever or chills. Patient states he underwent dialysis yesterday with removal of 3 L. He states he tolerated dialysis well yesterday with no issues. EKG reveals sinus mechanism with PVCs. Patient with T wave inversions anterola terally, which is not new. Patient also has t wave inversions in inferior leads which appears new compared to old EKG. Chest xray mild congestion with slight decreased inspiration compared to old exa m. No obvious heart failure. Cardiomegaly unchanged. Laboratory data: WBC 7.0. Hemoglobin 12.5. Platelet count 112. D-dimer 2.67. Sodium 138. Potassium 4.0. BUN 52. Creatinine 4.10. Current home cardiac medications include Crestor 40 mg daily, Lasix 60 mg twice a day, Plavix 75 mg daily, reveal 12.5 mg twice a day, aspirin 81 mg daily Most recent echocardiogram obtained in November 2020 revealed ejection fraction less than 20%, right ventricle moderate to severely enlarged, trace aortic reg urgitation, mild aortic stenosis, moderate mitral regurgitation, moderate tricuspid regurgitation, and moderate pulmonary hypertension with RVSP of 47.43 mmHg. Cardiac catheterization history: January [address] Parson with PCI to the LAD and ramus intermedius. REVIEW OF SYSTEMS: At the time of my exam: CONSTITUTIONAL: Denies fever or chills. HEENT: Denies blurred vision, vision changes, or eye pain. Denies hemoptysis CARDIOVASCULAR: Denies chest pain. Denies orthopnea. Denies PND. Denies palpitations RESPIRATORY: + shortness of breath. GASTROINTESTINAL: Denies abdominal pain. Denies nausea or vomiting. HEMATOLOGIC: Denies bleeding disorders. GENITOURINARY: Denies any blood in urine. SKIN: Denies pruitis. Denies rash. PHYSICAL EXAM: VITAL SIGNS: Reviewed. GENERAL: Well-developed in no acute distress. HEENT: Head is normocephalic. Pupils are equal, round. Sclerae anicteric. Mucous membranes of the mouth are moist. Neck supple. No JVD or thyromegaly LUNGS: Respirations even and unlabored. Lungs diminished bilaterally. HEART: Regular rate and rhythm. S1 and S2 heard. Systolic and diastolic murmur noted. ABDOMEN: Soft. Nondistended. Nontender. EXTREMITIES: Normal range of motion. No clubbing or cyanosis. Peripheral pulses intact. Trace edema of left lower extremity. NEUROLOGIC: Awake and alert. Oriented x 3. ASSESSMENT: Shortness of breath x 3 days Elevated D-Dimer, R/O PE Abnormal troponin, may be secondary to CKD, can not rule out underlying cardiac etiology Coronary artery disease with previous CABG and subsequent multivessel PCI History of NSTEMI, January 2021 with PCI to LAD and ramus intermedius History of ischemic cardiomyopathy with previous AICD implantation History of ventricular tachycardia with previous ablation End-stage renal disease on hemodialysis, Monday Valvular heart disease Congestive heart failure with reduced EF, currently euvolemic History of DVT PLAN: Obtain 2D echo to assess cardiac structure and function Discontinue IV nitro Continue IV heparin Trend troponin levels Obtain VQ scan to r/o PE Resume home cardiac medications Further recommendations pending patient course Nurse practitioner note has been reviewed by physician. Signing provider agrees with the documented findings, assessment, and plan of care. Past Medical History Past Medical History: Coronary Artery Disease (CAD), Heart Failure, Diabetes Mellitus, Dialysis, Deep Vein Thrombosis (DVT), Hearing Disorder / Deafness, Hyperlipidemia, Myocardial Infarction ([place]), Renal Disease, Vascular Disorder Additional Past Medical History / Comment(s): ANKLE SWELLING. DEAF IN RIGHT EAR. [place] IN LEFT EAR. [place] X7, DVT X6 IN LEFT LEG. HX KIDNEY STONES. PVD LEFT LEG. HX OF V-TACH, CARDIOMYOPATHY. Suspected hx COVID May 2019, "low blood pressure", Hemodialysis [facility]. Last Myocardial Infarction Date:: 02/18/21 History of Any Multi-Drug Resistant Organisms: None Reported Past Surgical History: AICD, Cardiac Ablation, Cholecystectomy, Coronary Bypass/CABG, Heart Catheterization, Heart Catheterization With Stent, Hernia Repair, Pacemaker, Tonsillectomy Additional Past Surgical History / Comment(s): Bilateral inguinal hernia repair, CABG-4 vessel 2013, [employer]EMAKER/[employer], total 2 stents, hemodialysis fistula right arm(not in use), port "right side of neck used for dialysis". Past Anesthesia/Blood Transfusion Reactions: Postoperative Nausea & Vomiting (PONV) Date of Last Stent Placement:: 01/2021 Type of Cardiac Device: Permanent Pacemaker, AICD Device Placement Date:: 04/04/2017 [place] [employer] Past Psychological History: No Psychological Hx Reported Smoking Status: Former smoker Past Alcohol Use History: None Reported Past Drug Use History: None Reported - Past Family History Mother Family Medical History: No Reported History Additional Family Medical History / Comment(s): . Medications and Allergies Home Medications Medication Instructions Recorded Confirmed Type Nitroglycerin Sl Tabs [Nitrostat] 0.4 mg SUBLINGUAL Q5M PRN #100 tab 02/21/16 07/02/21 Rx Aspirin [Adult Low Dose Aspirin EC] 81 mg PO DAILY 03/31/17 07/02/21 History Escitalopram [Lexapro] 10 mg PO HS 03/31/17 07/02/21 History Rosuvastatin Calcium [Crestor] 40 mg PO DAILY 03/31/17 07/02/21 History Carvedilol [Coreg] 12.5 mg PO BID 06/20/19 07/02/21 History Insulin Glargine,Hum.rec.anlog 1 - 26 unit SQ SUMOWEFR PRN 02/18/21 07/02/21 History [Esme Guerin U-100] calcitrioL [Calcitriol] 0.5 mcg PO TUTHSA 02/18/21 07/02/21 History Clopidogrel [Plavix] 75 mg PO DAILY #90 tab 02/19/21 07/02/21 Rx Dulaglutide [Trulicity] 3 mg SQ BARBER 04/07/21 07/02/21 History Folic Acid-Vit B Complex-Vit C 1 cap PO TUTHSA 04/07/21 07/02/21 History [Nephrocaps] Furosemide [Lasix] 60 mg PO BID 04/07/21 07/02/21 History Insulin Lispro [humaLOG Kwikpen] 0 - 40 unit SQ TUTHSA PRN 04/07/21 07/02/21 History Iron 50 Mg 50 mg IJ DAILY PRN 04/07/21 07/02/21 History Sevelamer Carbonate 1,600 mg PO TID-W/MEALS 04/07/21 07/02/21 History Calc Carb/Jennie D 1000 Units 1 tab PO DAILY 07/02/21 07/02/21 History rOPINIRole HCL [Requip] 1 mg PO HS 07/02/21 07/02/21 History traZODone HCL [Desyrel] 100 mg PO HS PRN 07/02/21 07/02/21 History Allergies Allergy/AdvReac Type Severity Reaction Status Date / Time morphine Allergy Severe Rash/Hives Verified 07/02/21 07:02 adhesive tape Allergy Rash/Hives Verified 07/02/21 07:02 Physical Exam Vitals: Vital Signs Temp Pulse Resp BP Pulse Ox 07/02/21 08:00 97.8 F 81 18 108/83 99 07/02/21 05:24 81 18 106/82 94 L 07/02/21 03:36 97.8 F 86 19 95/73 99 Intake and Output 07/01/21 07/02/21 07/02/21 22:59 06:59 14:59 Other: Weight 90.718 kg Results 07/02/21 04:10 07/02/21 04:10 Cardiac Enzymes 07/02/21 07/02/21 Range/Units 04:10 04:10 AST 23 (17-59) U/L Troponin I 0.226 H* (0.000-0.034) ng/mL Coagulation 07/02/21 Range/Units 04:10 PT 13.4 H (9.0-12.0) sec APTT 22.9 (22.0-30.0) sec CBC 07/02/21 Range/Units 04:10 WBC 7.0 (3.8-10.6) k/uL RBC 3.90 L (4.30-5.90) m/uL Hgb 12.5 L (13.0-17.5) gm/dL Hct 37.9 L (39.0-53.0) % Plt Count 112 L (150-450) k/uL Comprehensive Metabolic Panel 07/02/21 Range/Units 04:10 Sodium 137 (137-145) mmol/L Potassium 4.0 (3.5-5.1) mmol/L Chloride 93 L (98-107) mmol/L Carbon Dioxide 25 (22-30) mmol/L BUN 52 H (9-20) mg/dL Creatinine 4.10 H (0.66-1.25) mg/dL Glucose 255 H (74-99) mg/dL Calcium 9.7 (8.4-10.2) mg/dL AST 23 (17-59) U/L ALT 19 (4-49) U/L Alkaline Phosphatase 82 (38-126) U/L Total Protein 7.9 (6.3-8.2) g/dL Albumin 4.8 (3.5-5.0) g/dL Current Medications Generic Name Dose Route Start Last Admin Trade Name Freq PRN Reason Stop Dose Admin Aspirin 81 mg 07/02/21 09:00 Aspirin 81 Mg PO DAILY [facility] Atorvastatin Calcium 80 mg 07/02/21 09:00 Atorvastatin 80 Mg Tab PO DAILY [facility] Carvedilol 12.5 mg 07/02/21 09:00 Carvedilol 12.5 Mg Tab PO BID-W/MEALS [facility] Clopidogrel Bisulfate 75 mg 07/02/21 09:00 Clopidogrel 75 Mg Tab PO DAILY [facility] Furosemide 60 mg 07/02/21 09:00 Furosemide 20 Mg Tab PO BID@0900,1600 [facility] Heparin Sodium (Porcine) 0 unit 07/02/21 05:01 Heparin Sodium 1,000 Un/Ml (10ml Vl) IV PER PROTOCOL PRN Low PTT Protocol Nitroglycerin/Dextrose 50 mg/ 250 mls @ 6 mls/hr 07/02/21 05:00 07/02/21 05:22 IV Solution IV 07/03/21 04:59 20 mcg/min .Q24H ONE 6 mls/hr Administration Protocol 20 MCG/MIN Heparin Sodium/Sodium Chloride 250 mls @ 9.979 mls/hr 07/02/21 05:15 07/02/21 05:20 25,000 unit/ Sodium Chloride IV 11 units/kg/hr .Q24H ASHLEY 9.979 mls/hr Administration Protocol 11 UNITS/KG/HR Nitroglycerin 0.4 mg 07/02/21 06:53 Nitroglycerin Sl Tabs 0.4 Mg Tab SUBLINGUAL Q5M PRN Chest Pain Intake and Output 07/01/21 07/02/21 07/02/21 22:59 06:59 14:59 Other: Weight 90.718 kg 07/02/21 04:10 07/02/21 04:10
[2021-07-02] MEDS: FUROSEMIDE 20 MG TAB PO SCH ×2 (09:54→16:07)
[2021-07-02] MEDS: ATORVASTATIN 80 MG TAB PO SCH (09:55)
[2021-07-02] MEDS: CLOPIDOGREL 75 MG TAB PO SCH (09:55)
[2021-07-02] MEDS: carvediloL 12.5 MG TAB PO SCH ×2 (09:55→18:24)
[2021-07-02] MEDS: ASPIRIN 81 MG PO SCH (09:55)
--- NOTE | 2021-07-02 10:14 | P.NPCON ---
History of Present Illness - Reason for Consult end stage renal disease - History of Present Illness Reason for consultation: End-stage renal disease History of present illness: Patient is a 55-year-old male seen in renal consultation for end-stage renal disease. Patient was seen and examined in the emergency room. Patient presented to the hospital with chest pain. Patient states the pain started abo ut 3 days ago and has been progressively getting worse. Patient states that yesterday he got short of breath but just walking to his bathroom. Patient has history of coronary artery disease status post CABG. He also has ischemic cardiomyopathy with AICD implantation. He is currently on room air. Blood pressure stable. No fever or chills. No cough. No vomiting or diarrhea. He is maintained on heparin drip. He has been evaluated by cardiology. Echocardiogram is pending. Last dialysis was yesterday. Vital signs are stable. General: The patient appeared well nourished and normally developed. HEENT: Head exam is unremarkable. LUNGS: Breath sounds decreased. HEART: Rate and Rhythm are regular. ABDOMEN: Soft, no distention. EXTREMITITES: No edema. Past Medical History Past Medical History: Coronary Artery Disease (CAD), Heart Failure, Diabetes Mellitus, Dialysis, Deep Vein Thrombosis (DVT), Hearing Disorder / Deafness, Hyperlipidemia, Myocardial Infarction ([place]), Renal Disease, Vascular Disorder Additional Past Medical History / Comment(s): IDDM type II, ESRD with hemodialysis //, cardiomyopathy/AICD/pacer, multiple MIs, PVD L leg, DVTs L leg x6, hypotension, occasional L ankle edema, RLS, L ear deaf and R ear has 30% hearing. Last Myocardial Infarction Date:: 02/18/21 History of Any Multi-Drug Resistant Organisms: None Reported Past Surgical History: AICD, Cardiac Ablation, Cholecystectomy, Coronary Bypass/CABG, Heart Catheterization, Heart Catheterization With Stent, Hernia Repair, Pacemaker, Tonsillectomy Additional Past Surgical History / Comment(s): AICD/pacer, cardiac ablations, PCI/stents 2013 CABG 4 vessel, bilateral inguinal hernia repairs with r side done twice, peritoneal catheter since removed, R arm fistula never worked, R subclavian dialysis catheter. Past Anesthesia/Blood Transfusion Reactions: Postoperative Nausea & Vomiting (PONV) Date of Last Stent Placement:: 01/2021 Type of Cardiac Device: Permanent Pacemaker, AICD Device Placement Date:: 04/04/2017 HDF Smoking Status: Former smoker - Past Family History Mother Family Medical History: Coronary Artery Disease (CAD), Dementia Additional Family Medical History / Comment(s): . Father Family Medical History: CVA/TIA Additional Family Medical History / Comment(s): of a CVA at the age of 47yrs. Medications and Allergies Home Medications Medication Instructions Recorded Confirmed Type Nitroglycerin Sl Tabs [Nitrostat] 0.4 mg SUBLINGUAL Q5M PRN #100 tab 02/21/16 07/02/21 Rx Aspirin [Adult Low Dose Aspirin EC] 81 mg PO DAILY 03/31/17 07/02/21 History Escitalopram [Lexapro] 10 mg PO HS 03/31/17 07/02/21 History Rosuvastatin Calcium [Crestor] 40 mg PO DAILY 03/31/17 07/02/21 History Carvedilol [Coreg] 12.5 mg PO BID 06/20/19 07/02/21 History Insulin Glargine,Hum.rec.anlog 1 - 26 unit SQ SUMOWEFR PRN 02/18/21 07/02/21 History [Basaglar Kwikpen U-100] calcitrioL [Calcitriol] 0.5 mcg PO TUTHSA 02/18/21 07/02/21 History Clopidogrel [Plavix] 75 mg PO DAILY #90 tab 02/19/21 07/02/21 Rx Dulaglutide [Trulicity] 3 mg SQ BARBER 04/07/21 07/02/21 History Folic Acid-Vit B Complex-Vit C 1 cap PO TUTHSA 04/07/21 07/02/21 History [Nephrocaps] Furosemide [Lasix] 60 mg PO BID 04/07/21 07/02/21 History Insulin Lispro [humaLOG Kwikpen] 0 - 40 unit SQ TUTHSA PRN 04/07/21 07/02/21 History Iron 50 Mg 50 mg IJ DAILY PRN 04/07/21 07/02/21 History Sevelamer Carbonate 1,600 mg PO TID-W/MEALS 04/07/21 07/02/21 History Calc Carb/Jennie D 1000 Units 1 tab PO DAILY 07/02/21 07/02/21 History rOPINIRole HCL [Requip] 1 mg PO HS 07/02/21 07/02/21 History traZODone HCL [Desyrel] 100 mg PO HS PRN 07/02/21 07/02/21 History Allergies Allergy/AdvReac Type Severity Reaction Status Date / Time morphine Allergy Severe Rash/Hives Verified 07/02/21 07:02 adhesive tape Allergy Rash/Hives Verified 07/02/21 07:02 Physical Exam Vitals: Vital Signs Temp Pulse Resp BP Pulse Ox 07/02/21 09:50 97.7 F 86 20 109/89 99 07/02/21 08:00 97.8 F 81 18 108/83 99 07/02/21 05:24 81 18 106/82 94 L 07/02/21 03:36 97.8 F 86 19 95/73 99 Intake and Output 07/01/21 07/02/21 07/02/21 22:59 06:59 14:59 Other: Weight 90.718 kg 90.718 kg Results - Lab Results Most recent lab results Calcium 9.7 mg/dL (8.4-10.2) 07/02/21 04:10 Magnesium 2.1 mg/dL (1.6-2.3) 07/02/21 04:10 07/02/21 04:10 07/02/21 04:10 Assessment and Plan Plan: Assessment: 1. End-stage renal disease maintained on hemodialysis on Monday schedule via permacath. 2. Chest pain. On heparin drip. Cardiology following. 3. History of coronary artery disease status post CABG. 4. Chronic systolic CHF with ejection fraction of less than 20% status post AICD placement. Plan: Hemodialysis tomorrow. Check phosphorus level. Thank you for the consultation. I will continue to follow the patient with you during his hospital stay.
--- NOTE | 2021-07-02 12:31 | ECHOF ---
Referral Reason:LV function, abnormal troponins, chest pain MEASUREMENTS -------- HEIGHT: 152.4 cm WEIGHT: 9.1 kg BP: RVIDd: 4.1 cm (< 3.3) IVSd: 1.2 cm (0.6 - 1.1) LVIDd: 6.9 cm (3.9 - 5.3) LVPWd: 1.2 cm (0.6 - 1.1) IVSs: 1.3 cm LVIDs: 6.3 cm LVPWs: 1.8 cm LA Diam: 5.3 cm (2.7 - 3.8) LAESV Index (A-L): 119.44 ml/m Ao Diam: 3.5 cm (2.0 - 3.7) AV Cusp: 1.6 cm (1.5 - 2.6) LA Diam: 5.1 cm (2.7 - 3.8) MV EXCURSION: 15.249 mm (> 18.000) MV EF SLOPE: 89 mm/s (70 - 150) EPSS: 2.5 cm MV E Mike: 0.74 m/s MV DecT: 119 ms MV A Mike: 0.40 m/s MV E/A Ratio: 1.82 AV maxP.93 mmHg AV meanP.97 mmHg RAP: 5.00 mmHg RVSP: 36.33 mmHg FINDINGS -------- Paced rhythm. This was a techncally difficult study with suboptimal views, , Definity utilized for enhancement of i mages. The left ventricle is severely dilated. There is severe global hypokinesis of LV . Overall left v entricular systolic function is severely impaired with, an EF < 20%. The right ventricle is normal in size. The left atrium is markedly dilated. LA is severely dilated >40 ml/m2 The right atrial size is normal. Trace to mild aortic regurgitation. There is mild aortic stenosis present. Peak/mean gradient acr oss the Aortic Valve is 22.93mmHg / 12.97mmHg. Mild mitral regurgitation is present. Moderate tricuspid regurgitation present. There is mild pulmonary hypertension. The right ventric ular systolic pressure, as measured by Doppler, is 36.33mmHg. There is no pulmonic regurgitation present. There is no pericardial effusion. CONCLUSIONS -------- 1. This was a techncally difficult study with suboptimal views, , Definity utilized for enhancement o f images. 2. The left ventricle is severely dilated. 3. There is severe global hypokinesis of LV . 4. Overall left ventricular systolic function is severely impaired with, an EF < 20%. 5. The right ventricle is normal in size. 6. The left atrium is markedly dilated. 7. LA is severely dilated >40 ml/m2 8. The right atrial size is normal. 9. Trace to mild aortic regurgitation. 10. There is mild aortic stenosis present. 11. Peak/mean gradient across the Aortic Valve is 22.93mmHg / 12.97mmHg. 12. Mild mitral regurgitation is present. 13. Moderate tricuspid regurgitation present. 14. There is mild pulmonary hypertension. 15. The right ventricular systolic pressure, as measured by Doppler, is 36.33mmHg. 16. There is no pulmonic regurgitation present. 17. There is no pericardial effusion. EPIC ANESTHESIA ANALYST: Adriana Logan RDCS
--- NOTE | 2021-07-02 13:08 | NM ---
EXAMINATION TYPE: NM pul vent and perfuse DATE OF EXAM: 07/02/2021 COMPARISON: Chest x-ray same date HISTORY: Chest pain, elevated d-dimer, congestive heart failure TECHNIQUE: Utilizing inhalation of 34.7 mCi Tc 99m DTPA aerosol and intravenous injection of 4.89 mC i of Tc 99m MAA, ventilation and perfusion images are acquired post injection in multiple projections . FINDINGS: Chest x-ray shows an enlarged heart with suspected interstitial edema. Normal radiotracer distribution is noted in the lungs on perfusion scanning. Ventilation scanning janet ewhat decreased overall as compared to perfusion. Heart is enlarged, some central clumping of the rad io pharmaceutical noted on ventilation images. Uptake on ventilation images is noted along the esopha nayan. There is no evidence of mismatched defects. IMPRESSION: Low probability for pulmonary embolus. Correlate for volume overload, congestive heart failure.
--- NOTE | 2021-07-02 13:19 | P.HPIM ---
History of Present Illness H&P Date: 07/02/21 Chief Complaint: Chest pain This is a 55-year-old gentleman with past medical history of CAD, [place] ( most recently 02/16 with PCI of diagonal and ramus intermedius), CABG, CHF, ischemic cardiomyopathy with AICD,diabetes mellitus, chronic DVT, hypertension, hyperlipidemia, prior nicotine dependence, end-stage renal disease on hemodialysis and multiple other medical issues presented to the ER with complaints of chest pain radiating down left arm, shortness of breath worsening over the last 3 days. Reports shortness of breath worsened with exertion/ambulating. Reports last dialysis was yesterday without any complications. Anticoagulated on heparin drip. Vital signs stable, maintaining O2 sats in the 90s on room air. Currently denies any chest pain, palpitations or shortness of breath. Denies lightheadedness or dizziness. Denies cough or congestion. Coronavirus not detected. Afebrile, normal WBC. Hemoglobin 12.5, platelets 112, INR 1.3, d-dimer elevated at 2.67. V/Q scan ordered. Sodium 137, potassium 4, bicarb 25, BUN 52, creatinine 4.1 magnesium 2.1. Troponin 0.226, 0.222, third troponin pending. EKG currently [place] [address]. Chest x-ray reporting mild congestion with slight decreased inspiration compared to the prior exam, no obvious heart failure, cardiomegaly unchanged. Review of Systems ROS Statement: Those systems with pertinent positive or pertinent negative responses have been documented in the HPI. ROS Other: All systems not noted in ROS Statement are negative. Past Medical History Past Medical History: Coronary Artery Disease (CAD), Heart Failure, Diabetes Mellitus, Dialysis, Deep Vein Thrombosis (DVT), Hearing Disorder / Deafness, Hyperlipidemia, Myocardial Infarction ([place]), Renal Disease, Vascular Disorder Additional Past Medical History / Comment(s): IDDM type II, ESRD with hemodialysis //, cardiomyopathy/AICD/pacer, multiple MIs, PVD L leg, DVTs L leg x6, hypotension, occasional L ankle edema, RLS, L ear deaf and R ear has 30% hearing. Last Myocardial Infarction Date:: 02/18/21 History of Any Multi-Drug Resistant Organisms: None Reported Past Surgical History: AICD, Cardiac Ablation, Cholecystectomy, Coronary Bypass/CABG, Heart Catheterization, Heart Catheterization With Stent, Hernia Repair, Pacemaker, Tonsillectomy Additional Past Surgical History / Comment(s): AICD/pacer, cardiac ablations, PCI/stents 2013 CABG 4 vessel, bilateral inguinal hernia repairs with r side done twice, peritoneal catheter since removed, R arm fistula never worked, R subclavian dialysis catheter. Past Anesthesia/Blood Transfusion Reactions: Postoperative Nausea & Vomiting (PONV) Date of Last Stent Placement:: 01/2021 Type of Cardiac Device: Permanent Pacemaker, AICD Device Placement Date:: 04/04/2017 [employer] Smoking Status: Former smoker - Past Family History Mother Family Medical History: Coronary Artery Disease (CAD), Dementia Additional Family Medical History / Comment(s): . Father Family Medical History: CVA/TIA Additional Family Medical History / Comment(s): of a CVA at the age of 47yrs. Medications and Allergies Home Medications Medication Instructions Recorded Confirmed Type Nitroglycerin Sl Tabs [Nitrostat] 0.4 mg SUBLINGUAL Q5M PRN #100 tab 02/21/16 07/02/21 Rx Aspirin [Adult Low Dose Aspirin EC] 81 mg PO DAILY 03/31/17 07/02/21 History Escitalopram [Lexapro] 10 mg PO HS 03/31/17 07/02/21 History Rosuvastatin Calcium [Crestor] 40 mg PO DAILY 03/31/17 07/02/21 History Carvedilol [Coreg] 12.5 mg PO BID 06/20/19 07/02/21 History Insulin Glargine,Hum.rec.anlog 1 - 26 unit SQ SUMOWEFR PRN 02/18/21 07/02/21 History [Basaglar Kwikpen U-100] calcitrioL [Calcitriol] 0.5 mcg PO TUTHSA 02/18/21 07/02/21 History Clopidogrel [Plavix] 75 mg PO DAILY #90 tab 02/19/21 07/02/21 Rx Dulaglutide [Trulicity] 3 mg SQ BARBER 04/07/21 07/02/21 History Folic Acid-Vit B Complex-Vit C 1 cap PO TUTHSA 04/07/21 07/02/21 History [Nephrocaps] Furosemide [Lasix] 60 mg PO BID 04/07/21 07/02/21 History Insulin Lispro [humaLOG Kwikpen] 0 - 40 unit SQ TUTHSA PRN 04/07/21 07/02/21 History Iron 50 Mg 50 mg IJ DAILY PRN 04/07/21 07/02/21 History Sevelamer Carbonate 1,600 mg PO TID-W/MEALS 04/07/21 07/02/21 History Calc Carb/Jennie D 1000 Units 1 tab PO DAILY 07/02/21 07/02/21 History rOPINIRole HCL [Requip] 1 mg PO HS 07/02/21 07/02/21 History traZODone HCL [Desyrel] 100 mg PO HS PRN 07/02/21 07/02/21 History Allergies Allergy/AdvReac Type Severity Reaction Status Date / Time morphine Allergy Severe Rash/Hives Verified 07/02/21 07:02 adhesive tape Allergy Rash/Hives Verified 07/02/21 07:02 Physical Exam Vitals: Vital Signs Temp Pulse Resp BP Pulse Ox 07/02/21 10:45 83 18 07/02/21 09:50 97.7 F 86 20 109/89 99 07/02/21 08:00 97.8 F 81 18 108/83 99 07/02/21 05:24 81 18 106/82 94 L 07/02/21 03:36 97.8 F 86 19 95/73 99 Intake and Output 07/01/21 07/02/21 07/02/21 22:59 06:59 14:59 Intake Total 36.2 Balance 36.2 Intake: Intake, IV Titration 36.2 Amount Nitroglycerin-D5w Pmx 50 36.2 mg In Dextrose/Water 1 250ml.bag @ 20 MCG/MIN 6 mls/hr IV .Q24H ONE Rx#: [id number] Other: Weight 90.718 kg 90.718 kg - Exam PHYSICAL EXAM: VITAL SIGNS: As above GENERAL: Alert and oriented 3, Sitting up in bed, no acute distress HEENT: Conjunctivae normal. eyes normal. Oral mucosa moist NECK: Supple, No JVD CARDIOVASCULAR: S1, S2 regular. Systolic murmur RESPIRATION: Bilateral bases diminished. No rhonchi or crackles. ABDOMEN: Soft, nondistended, nontender, no masses palpable, no guarding ,Positive Bowel sounds. LEGS: No edema. no swelling, intact peripheral pulses NERVOUS SYSTEM: Cranial N 2-12 grossly normal. No focal deficits. Strength and sensation grossly intact. Skin: Warm and dry, no rash Results CBC & Chem 7: 07/02/21 04:10 07/02/21 04:10 Labs: Abnormal Lab Results - Last 24 Hours (Table) 07/02/21 07/02/21 07/02/21 Range/Units 04:10 04:10 04:10 RBC 3.90 L (4.30-5.90) m/uL Hgb 12.5 L (13.0-17.5) gm/dL Hct 37.9 L (39.0-53.0) % RDW 16.0 H (11.5-15.5) % Plt Count 112 L (150-450) k/uL Lymphocytes # 0.8 L (1.0-4.8) k/uL PT 13.4 H (9.0-12.0) sec INR 1.3 H (<1.2) D-Dimer 2.67 H (<0.60) mg/L FEU Chloride 93 L (98-107) mmol/L BUN 52 H (9-20) mg/dL Creatinine 4.10 H (0.66-1.25) mg/dL Glucose 255 H (74-99) mg/dL Troponin I (0.000-0.034) ng/mL 07/02/21 07/02/21 07/02/21 Range/Units 04:10 07:59 11:45 RBC (4.30-5.90) m/uL Hgb (13.0-17.5) gm/dL Hct (39.0-53.0) % RDW (11.5-15.5) % Plt Count (150-450) k/uL Lymphocytes # (1.0-4.8) k/uL PT (9.0-12.0) sec INR (<1.2) D-Dimer (<0.60) mg/L FEU Chloride (98-107) mmol/L BUN (9-20) mg/dL Creatinine (0.66-1.25) mg/dL Glucose (74-99) mg/dL Troponin I 0.226 H* 0.222 H* 0.225 H* (0.000-0.034) ng/mL Thrombosis Risk Factor Assmnt - Choose All That Apply Any of the Below Risk Factors Present?: Yes Each Factor Represents 1 point: Age 41-60 years, Obesity (BMI >25) Other Risk Factors: Yes Each Risk Factor Represents 3 Points: History of DVT/PE Other congenital or acquired thrombophilia - If yes, enter type in comment: No Thrombosis Risk Factor Assessment Total Risk Factor Score: 5 Thrombosis Risk Factor Assessment Level: High Risk Assessment and Plan Assessment: Chest pain, elevated troponins, cardiology following Worsening shortness of breath, possibly related to the above; elevated d-dimer, Ruling out PE. CAD, [place], CABG, Chronic CHF, systolic Ischemic cardiomyopathy with AICD End-stage renal disease on HD Monday, , Monday Moderate pulmonary hypertension History of VT, status post ablation Diabetes mellitus Chronic DVT Hypertension Hyperlipidemia Plan: Continue on current medication regime ,monitoring and symptomatic treatme nt. Home meds have been resumed accordingly .anticoagulated on heparin drip.Evaluated by cardiology, echo , repeat troponin ordered. Elevated d-dimer, VQ scan ordered.Scheduled for hemodialysis tomorrow. Follow closely with cardiology for further recommendations. The impression and plan of care has been dictated as directed. : I performed a history and examination of this patient, discussed the same with the dictator. I agree with the dictator's note ,documented as a scribe. Any a dditional findings or plans will be noted.
[2021-07-02] MEDS ORDERED: traZODone HCL 100 MG TAB PO PRN (20:24)
[2021-07-02 20:48] LABS: Glucose,Whole Blood 225 mg/dL (75-99)
[2021-07-02] MEDS: INSULIN ASPART (NovoLOG) 100 UNIT/ML VIAL SQ SCH (20:53)
[2021-07-02] MEDS ORDERED: ESCITALOPRAM 10 MG TAB PO SCH (21:00)
[2021-07-03] MEDS: SEVELAMER 800 MG TAB PO SCH ×2 (06:28→14:04)
[2021-07-03] MEDS: INSULIN ASPART (NovoLOG) 100 UNIT/ML VIAL SQ SCH ×2 (06:28→14:06)
[2021-07-03] MEDS: carvediloL 12.5 MG TAB PO SCH (06:28)
[2021-07-03 06:31] LABS: Glucose,Whole Blood 239 mg/dL (75-99)
[2021-07-03 07:22] LABS: Anisocytosis Slight; Basophils % (A) 1 %; Eosinophils % (A) 1 %; HCT 39.4 % (39.0-53.0); HGB 12.4 gm/dL (13.0-17.5); Lymphocytes # (A) 0.8 k/uL (1.0-4.8); Lymphocytes % (A) 12 %; MCH 31.2 pg (25.0-35.0); MCHC 31.5 g/dL (31.0-37.0); MCV 99.2 fL (80.0-100.0); Macrocytosis Slight; Mean Platelet Volume 9.5; Monocytes # (A) 0.4 k/uL (0-1.0); Monocytes % (A) 6 %; Neutrophils % (A) 79 %; Platelet Count 123 k/uL (150-450); RBC 3.97 m/uL (4.30-5.90); WBC 6.4 k/uL (3.8-10.6)
[2021-07-03 07:25] LABS: INR 1.3 (<1.2); Prothrombin Time 13.4 sec (9.0-12.0)
--- NOTE | 2021-07-03 08:31 | P.PN ---
Subjective Patient is seen in follow-up for end-stage renal disease. He is maintained on hemodialysis on Monday schedule. Dyspnea improved. Denies chest pain. Oral intake fair. Vital signs are stable. General: The patient appeared well nourished and normally developed. HEENT: Head exam is unremarkable. LUNGS: Breath sounds decreased. HEART: Rate and Rhythm are regular. ABDOMEN: Soft, no distention. EXTREMITITES: No edema. Objective - Vital Signs Vital signs: Vital Signs Temp 97.8 F 07/03/21 03:43 Pulse 78 07/03/21 03:43 Resp 20 07/03/21 03:43 BP 102/73 07/03/21 03:43 Pulse Ox 94 L 07/03/21 03:43 Intake & Output 07/02/21 07/03/21 07/03/21 18:59 06:59 18:59 Intake Total 276.2 Output Total 100 Balance 276.2 -100 Weight 90.718 kg Intake: Intake, IV Titration 36.2 Amount Nitroglycerin-D5w Pmx 50 36.2 mg In Dextrose/Water 1 250ml.bag @ 20 MCG/MIN 6 mls/hr IV .Q24H ONE Rx#: [id number] Oral 240 Output: Emesis 100 Other: Voiding Method Toilet # Voids 2 1 - Labs CBC & Chem 7: 07/03/21 06:44 07/02/21 04:10 Labs: Abnormal Lab Results - Last 24 Hours (Table) 07/02/21 07/02/21 07/02/21 Range/Units 07:59 11:45 20:07 RBC (4.30-5.90) m/uL Hgb (13.0-17.5) gm/dL RDW (11.5-15.5) % Plt Count (150-450) k/uL Lymphocytes # (1.0-4.8) k/uL PT (9.0-12.0) sec INR (<1.2) POC Glucose (mg/dL) 225 H (75-99) mg/dL Troponin I 0.222 H* 0.225 H* (0.000-0.034) ng/mL 07/03/21 07/03/21 07/03/21 Range/Units 06:24 06:44 06:44 RBC 3.97 L (4.30-5.90) m/uL Hgb 12.4 L (13.0-17.5) gm/dL RDW 16.0 H (11.5-15.5) % Plt Count 123 L (150-450) k/uL Lymphocytes # 0.8 L (1.0-4.8) k/uL PT 13.4 H (9.0-12.0) sec INR 1.3 H (<1.2) POC Glucose (mg/dL) 239 H (75-99) mg/dL Troponin I (0.000-0.034) ng/mL Assessment and Plan Plan: Assessment: 1. End-stage renal disease maintained on hemodialysis on Monday schedule via permacath. 2. Dyspnea. Improved. Component of volume overload. Cardiology following. 3. History of coronary artery disease status post CABG and cardiac stenting. 4. Chronic systolic CHF with ejection fraction of less than 20% with moderate tricuspid regurgitation status post AICD placement. 5. Chronic kidney disease mineral bone disease maintained on calcitriol and Renvela. Plan: Hemodialysis today - try for 3L UF today. Follow-up phosphorus level.
[2021-07-03] MEDS ORDERED: CALCIUM CARB-VIT D 500 MG-5 MCG TAB PO SCH (09:00)
[2021-07-03] MEDS ORDERED: FERROUS SULFATE 325 MG TAB PO SCH (09:00)
[2021-07-03] MEDS ORDERED: FOLIC ACID-VIT B COMPLEX-VIT C 1 CAP PO SCH (09:00)
[2021-07-03] MEDS ORDERED: ASPIRIN 325 MG TAB PO SCH (09:00)
[2021-07-03 11:26] LABS: Glucose,Whole Blood 166 mg/dL (75-99)
[2021-07-03 11:33] LABS: Chol/HDL Ratio 2.18 Ratio; LDL Cholesterol,Calculated 17.2 mg/dL (0.0-131.0); VLDL Calculation 16.64 mg/dL (5.00-40.00)
[2021-07-03 12:20] VITALS: RESP 18
--- NOTE | 2021-07-03 12:33 | P.PN ---
Subjective Progress Note Date: 07/03/21 PROGRESS NOTE The patient is a 55-year-old male with a known history of severe cardiomyopathy, status post stenting, end-stage renal disease on hemodialysis who presented with dyspnea and left arm discomfort. He had mild troponin elevation likely no trend, not consistent with acute coronary syndrome. His echocardiogram showed severely impaired systolic function. He's feeling well this morning, receiving dialysis without any chest discomfort, dyspnea or arm pain. He denies any dizziness or palpitations. He continues to be on aspirin, Lipitor 80 mg daily, Plavix and 5 mg daily, Lasix 60 mg twice a day. PHYSICAL EXAMINATION: Blood pressure [107/70] heart rate [70] LUNGS: [Clear to auscultation] HEART: [Regular rate and rhythm, S1, S2. No S3. systolic murmur at the base] ABDOMEN: [Soft, nontender, no organomegaly] EXTREMETIES: [No edema] IMPRESSION: 1. [ Left arm pain with no evidence to suggest acute cardiac syndrome] 2. [ History of coronary disease with severe cardiomyopathy] 3. [ Mild troponin elevation, probably secondary to chronic kidney disease no evidence of acute coronary syndrome 4. [ End stage renal disease] PLAN: 1. Continue present therapy 2. Probable discharge home today and follow-up as an outpatient. Objective - Vital Signs Vital signs: Vital Signs Temp 97.9 F 07/03/21 12:00 Pulse 74 07/03/21 12:00 Resp 18 07/03/21 12:00 BP 107/77 07/03/21 12:00 Pulse Ox 96 07/03/21 12:00 Intake & Output 07/02/21 07/03/21 07/03/21 18:59 06:59 18:59 Intake Total 276.2 Output Total 100 Balance 276.2 -100 Weight 90.718 kg Intake: Intake, IV Titration 36.2 Amount Nitroglycerin-D5w Pmx 50 36.2 mg In Dextrose/Water 1 250ml.bag @ 20 MCG/MIN 6 mls/hr IV .Q24H ONE Rx#: [id number] Oral 240 Output: Emesis 100 Other: Voiding Method Toilet Toilet # Voids 2 1 - Labs CBC & Chem 7: 07/03/21 06:44 07/02/21 04:10 Labs: Abnormal Lab Results - Last 24 Hours (Table) 0207/02/21 07/03/21 Range/Units 11:45 20:07 06:24 RBC (4.30-5.90) m/uL Hgb (13.0-17.5) gm/dL RDW (11.5-15.5) % Plt Count (150-450) k/uL Lymphocytes # (1.0-4.8) k/uL PT (9.0-12.0) sec INR (<1.2) POC Glucose (mg/dL) 225 H 239 H (75-99) mg/dL Phosphorus (2.5-4.5) mg/dL Troponin I 0.225 H* (0.000-0.034) ng/mL HDL Cholesterol (40.00-60.00) mg/dL 07/03/21 07/03/21 07/03/21 Range/Units 06:44 06:44 06:44 RBC 3.97 L (4.30-5.90) m/uL Hgb 12.4 L (13.0-17.5) gm/dL RDW 16.0 H (11.5-15.5) % Plt Count 123 L (150-450) k/uL Lymphocytes # 0.8 L (1.0-4.8) k/uL PT 13.4 H (9.0-12.0) sec INR 1.3 H (<1.2) POC Glucose (mg/dL) (75-99) mg/dL Phosphorus (2.5-4.5) mg/dL Troponin I (0.000-0.034) ng/mL HDL Cholesterol 28.70 L (40.00-60.00) mg/dL 07/03/21 07/03/21 Range/Units 06:44 11:24 RBC (4.30-5.90) m/uL Hgb (13.0-17.5) gm/dL RDW (11.5-15.5) % Plt Count (150-450) k/uL Lymphocytes # (1.0-4.8) k/uL PT (9.0-12.0) sec INR (<1.2) POC Glucose (mg/dL) 166 H (75-99) mg/dL Phosphorus 7.3 H (2.5-4.5) mg/dL Troponin I (0.000-0.034) ng/mL HDL Cholesterol (40.00-60.00) mg/dL
[2021-07-03] MEDS: CLOPIDOGREL 75 MG TAB PO SCH (14:00)
[2021-07-03] MEDS: ATORVASTATIN 80 MG TAB PO SCH (14:00)
[2021-07-03] MEDS: FUROSEMIDE 20 MG TAB PO SCH ×2 (14:00→15:30)
[2021-07-03] MEDS: ASPIRIN 81 MG PO SCH (14:00)
[2021-07-03 14:05] LABS: Glucose,Whole Blood 201 mg/dL (75-99)
[2021-07-03 14:19] VITALS: BP 115/83; PULSE 76; TEMP 97.6
--- NOTE | 2021-07-03 14:55 | P.PN ---
Subjective Progress Note Date: 07/03/21 Principal diagnosis: Chest pain with shortness of breath with exertion. 55-year-old woman presented to the emergency room on 07/02/2021 with complaints of chest pain radiating down left arm and shortness of breath worsening with exertion over the past 3 days. Patient has past medical history of CABG, [place] with stenting in 02/16, CHF, ischemic cardiomyopathy with AICD, diabetes mellitus, chronic DVT, hypertension, hyperlipidemia, end-stage renal disease requiring hemodialysis, with most recent dialysis completed on 07/01/2021. Initial set of vital signs were stable with blood pressure of 106/82, maintaining oxygen saturation 94% on room air, respiratory rate of 18, pulse rate of 81 and was afebrile 97.8. Initial blood work revealed a hemoglobin of 12.5, hematocrit 37, platelet count of 112, PT of 13.4, INR 1.3. Chemistry reveals a sodium 137, potassium 4.0, albumin 56, creatinine 4.1, glucose of 255, troponin of 0.225, BNP of 50,100. Patient was tested for Covid via PCR was found to be negative. Currently on 07/03/2021 patient is resting comfortably in bed at this time ready to be discharged home. No signs of been stable, he denies any chest pain pressure, shortness breath or difficulty breathing at this time as he was dialyzed for approximately 3 L off yesterday and states he feels much better. Objective - Vital Signs Vital signs: Vital Signs Temp 97.6 F 07/03/21 14:15 Pulse 76 07/03/21 14:15 Resp 18 07/03/21 14:15 BP 115/83 07/03/21 14:15 Pulse Ox 96 07/03/21 12:00 Intake & Output 07/02/21 07/03/21 07/03/21 18:59 06:59 18:59 Intake Total 276.2 Output Total 100 Balance 276.2 -100 Weight 90.718 kg Intake: Intake, IV Titration 36.2 Amount Nitroglycerin-D5w Pmx 50 36.2 mg In Dextrose/Water 1 250ml.bag @ 20 MCG/MIN 6 mls/hr IV .Q24H ONE Rx#: [id number] Oral 240 Output: Emesis 100 Other: Voiding Method Toilet Toilet # Voids 2 1 - Exam GENERAL: Well-appearing, well-nourished and in no acute distress. HEAD: Atraumatic, normocephalic. EYES: Pupils equal round and reactive to light, extraocular movements intact, sclera anicteric, conjunctiva are normal. ENT:nares patent, oropharynx clear without exudates. Moist mucous membranes. NECK: Normal range of motion, supple without lymphadenopathy or JVD, no thyrom egaly LUNGS: Breath sounds clear to auscultation bilaterally and equal. No wheezes rales or rhonchi. HEART: Regular rate and rhythm without murmurs, rubs or gallops.S1S2 Normal ABDOMEN: Soft, nontender, normoactive bowel sounds. No guarding, no rebound. No masses appreciated. EXTREMITIES: Normal range of motion, no pitting or edema. No clubbing or cyanosis. NEUROLOGICAL: Cranial nerves II through XII grossly intact. Normal speech, normal gait. PSYCH: Normal mood, normal affect. SKIN: Warm, Dry, normal turgor, no rashes or lesions noted. - Labs CBC & Chem 7: 07/03/21 06:44 07/02/21 04:10 Labs: Abnormal Lab Results - Last 24 Hours (Table) 07/02/21 07/03/21 07/03/21 Range/Units 20:07 06:24 06:44 RBC (4.30-5.90) m/uL Hgb (13.0-17.5) gm/dL RDW (11.5-15.5) % Plt Count (150-450) k/uL Lymphocytes # (1.0-4.8) k/uL PT (9.0-12.0) sec INR (<1.2) POC Glucose (mg/dL) 225 H 239 H (75-99) mg/dL Phosphorus (2.5-4.5) mg/dL HDL Cholesterol 28.70 L (40.00-60.00) mg/dL 07/03/21 07/03/21 07/03/21 Range/Units 06:44 06:44 06:44 RBC 3.97 L (4.30-5.90) m/uL Hgb 12.4 L (13.0-17.5) gm/dL RDW 16.0 H (11.5-15.5) % Plt Count 123 L (150-450) k/uL Lymphocytes # 0.8 L (1.0-4.8) k/uL PT 13.4 H (9.0-12.0) sec INR 1.3 H (<1.2) POC Glucose (mg/dL) (75-99) mg/dL Phosphorus 7.3 H (2.5-4.5) mg/dL HDL Cholesterol (40.00-60.00) mg/dL 07/03/21 07/03/21 Range/Units 11:24 14:04 RBC (4.30-5.90) m/uL Hgb (13.0-17.5) gm/dL RDW (11.5-15.5) % Plt Count (150-450) k/uL Lymphocytes # (1.0-4.8) k/uL PT (9.0-12.0) sec INR (<1.2) POC Glucose (mg/dL) 166 H 201 H (75-99) mg/dL Phosphorus (2.5-4.5) mg/dL HDL Cholesterol (40.00-60.00) mg/dL Assessment and Plan (1) Fluid overload Current Visit: Yes Status: Acute Code(s): E87.70 - FLUID OVERLOAD, UNSPECIFIED SNOMED Code(s): 36751134 (2) Chest pain Current Visit: Yes Status: Acute Code(s): R07.9 - CHEST PAIN, UNSPECIFIED SNOMED Code(s): 09495323 (3) Dyspnea Current Visit: Yes Status: Acute Code(s): R06.00 - DYSPNEA, UNSPECIFIED SNOMED Code(s): 921033721 (4) Chronic CHF (congestive heart failure) Current Visit: Yes Status: Acute Code(s): I50.9 - HEART FAILURE, UNSPECIFIED SNOMED Code(s): 47458861 (5) Elevated troponin I level Current Visit: Yes Status: Acute Priority: High Code(s): R79.89 - OTHER SPECIFIED ABNORMAL FINDINGS OF BLOOD CHEMISTRY SNOMED Code(s): 981476505 (6) End stage renal disease Current Visit: Yes Status: Acute Code(s): N18.6 - END STAGE RENAL DISEASE SNOMED Code(s): 24416901 (7) NICM (nonischemic cardiomyopathy) Current Visit: No Status: Acute Code(s): I42.9 - CARDIOMYOPATHY, UNSPECIFIED SNOMED Code(s): 81408696 (8) Diabetes mellitus Current Visit: No Status: Chronic Code(s): E11.9 - TYPE 2 DIABETES MELLITUS WITHOUT COMPLICATIONS SNOMED Code(s): 34654012 (9) Hypertension Current Visit: No Status: Chronic Code(s): I10 - ESSENTIAL (PRIMARY) HYPERTENSION SNOMED Code(s): 66188305 Plan: Continue outpatient dialysis Monday Follow-up with cardiology in 1-2 weeks Follow-up for primary care 2-3 days We'll discharge home today Time with Patient: Greater than 30
--- NOTE | 2021-07-03 15:04 | P.DS ---
Providers Date of admission: 07/02/21 06:53 Expected date of discharge: 07/03/21 Attending physician: Joshua Maya Consults: 07/02/21 06:53 Consult Physician Routine Consulting Provider: Yoshi Soto Consult Reason/Comments: Dialysis patient Do you want consulting provider notified?: Yes Consult Physician Routine Consulting Provider: Eddie Parson Consult Reason/Comments: Elevated troponin. Do you want consulting provider notified?: Yes Primary care physician: Maurice Hernandez - Discharge Diagnosis(es) (1) Fluid overload Current Visit: Yes Status: Acute (2) Chest pain Current Visit: Yes Status: Acute (3) Dyspnea Current Visit: Yes Status: Acute (4) Chronic CHF (congestive heart failure) Current Visit: Yes Status: Acute (5) Elevated troponin I level Current Visit: Yes Status: Acute Priority: High (6) End stage renal disease Current Visit: Yes Status: Acute (7) NICM (nonischemic cardiomyopathy) Current Visit: No Status: Acute (8) Diabetes mellitus Current Visit: No Status: Chronic (9) Hypertension Current Visit: No Status: Chronic Patient Condition at Discharge: Fair Plan - Discharge Summary Discharge Rx Participant: No New Discharge Prescriptions: New Furosemide [Lasix] 60 mg PO BID@0900,1600 tab Continue Nitroglycerin Sl Tabs [Nitrostat] 0.4 mg SUBLINGUAL Q5M PRN #100 tab PRN Reason: Chest Pain Aspirin [Adult Low Dose Aspirin EC] 81 mg PO DAILY Rosuvastatin Calcium [Crestor] 40 mg PO DAILY Escitalopram [Lexapro] 10 mg PO HS Carvedilol [Coreg] 12.5 mg PO BID Insulin Glargine,Hum.rec.anlog [Basaglar Kwikpen U-100] 1 - 26 unit SQ SUMOWEFR PRN PRN Reason: Blood Sugar - High Dulaglutide [Trulicity] 3 mg SQ BARBER Insulin Lispro [humaLOG Kwikpen] 0 - 40 unit SQ TUTHSA PRN PRN Reason: Blood Sugar - High Furosemide [Lasix] 60 mg PO BID Folic Acid-Vit B Complex-Vit C [Nephrocaps] 1 cap PO TUTHSA Iron 50 Mg 50 mg IJ DAILY PRN PRN Reason: ANEMIA Calc Carb/Jennie D 1000 Units 1 tab PO DAILY rOPINIRole HCL [Requip] 1 mg PO HS traZODone HCL [Desyrel] 100 mg PO HS PRN PRN Reason: Insomnia calcitrioL [Calcitriol] 0.5 mcg PO TUTHSA Clopidogrel [Plavix] 75 mg PO DAILY #90 tab Sevelamer Carbonate 1,600 mg PO TID-W/MEALS Discharge Medication List Nitroglycerin Sl Tabs [Nitrostat] 0.4 mg SUBLINGUAL Q5M PRN #100 tab 02/21/16 [Rx] Aspirin [Adult Low Dose Aspirin EC] 81 mg PO DAILY 03/31/17 [History] Escitalopram [Lexapro] 10 mg PO HS 03/31/17 [History] Rosuvastatin Calcium [Crestor] 40 mg PO DAILY 03/31/17 [History] Carvedilol [Coreg] 12.5 mg PO BID 06/20/19 [History] Insulin Glargine,Hum.rec.anlog [Basaglar Kwikpen U-100] 1 - 26 unit SQ SUMOWEFR PRN 02/18/21 [History] calcitrioL [Calcitriol] 0.5 mcg PO TUTHSA 02/18/21 [History] Clopidogrel [Plavix] 75 mg PO DAILY #90 tab 02/19/21 [Rx] Dulaglutide [Trulicity] 3 mg SQ BARBER 04/07/21 [History] Folic Acid-Vit B Complex-Vit C [Nephrocaps] 1 cap PO TUTHSA 04/07/21 [History] Furosemide [Lasix] 60 mg PO BID 04/07/21 [History] Insulin Lispro [humaLOG Kwikpen] 0 - 40 unit SQ TUTHSA PRN 04/07/21 [History] Iron 50 Mg 50 mg IJ DAILY PRN 04/07/21 [History] Sevelamer Carbonate 1,600 mg PO TID-W/MEALS 04/07/21 [History] Calc Carb/Jennie D 1000 Units 1 tab PO DAILY 07/02/21 [History] rOPINIRole HCL [Requip] 1 mg PO HS 07/02/21 [History] traZODone HCL [Desyrel] 100 mg PO HS PRN 07/02/21 [History] Furosemide [Lasix] 60 mg PO BID@0900,1600 tab 07/03/21 [Rx] Follow up Appointment(s)/Referral(s): Carlos Freedman MD [STAFF PHYSICIAN] - 1 Week Maurice Hernandez MD [Primary Care Provider] - 1-2 days Discharge Disposition: HOME SELF-CARE Plan of Treatment: Continue home medications as presented prescribed Continue hemodialysis Monday schedule
[2021-07-04] MEDS ORDERED: NON FORMULARY DRUG (Dulaglutide [Trulicity] 3 MG/0.5 ML Each) SQ SCH (09:00)
--- NOTE | 2021-07-06 09:45 | CDI ---
Documentation Clarification Form Date: 07/06/21 From: Arely Hitchcock Admit Date: 07/02/2021 06:53:00 AM Patient Name: Toribio Klein Visit Number: [id number] Discharge Date: 07/03/2021 03:49:00 PM ATTENTION: The Clinical Documentation Specialists (CDI) and [facility] Coding Staff appreciate your assistance in clarifying documentation. Please respond to the clarification below the line at the bottom and electronically sign. The CDI & [facility] Coding staff will review the response and follow-up if needed. Please note: Queries are made part of the Legal Health Record. If you have any questions, please contact the author of this message via ITS. Dr. Joshua Maya, Conflicting documentation has been found in the medical record. As attending physician, please provide clarification. Fluid overload per 2/5 PN and DS. Chronic CHF, systolic Per H&P, consult, 2/4 & 2/5 PN. History/Risk Factors: HTN w ESRD, DM w CKD & PVD Clinical Indicators: BNP 25645 Patient presents with chest pain, elevated troponins, cardiology following worsening shortness of breath, possibly related to the above; elevated d-dimer, ruling out PE. 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 MTDD
== END 2021-07-03 15:49 | disposition home or self-care (01) ==
LOC: EC 03:34 → INTOOBSV 06:53 → 3SCARD 06:53 → UNDODISIN 07-03 15:49
PROVIDERS: ADMIT Family Medicine; ATTEND Family Medicine
PROC: 5A1D70Z Performance of Urinary Filtration, Intermittent, Less than 6 Hours Per Day (ICD-10-PCS; principal; 2021-07-03)
DX: R07.89 Other chest pain (principal); E87.79 Other fluid overload; I13.2 Hypertensive heart and chronic kidney disease with heart failure and with stage 5 chronic kidney disease, or end stage renal disease; N18.6 End stage renal disease; R79.89 Other specified abnormal findings of blood chemistry; I50.22 Chronic systolic (congestive) heart failure; E11.22 Type 2 diabetes mellitus with diabetic chronic kidney disease; E11.51 Type 2 diabetes mellitus with diabetic peripheral angiopathy without gangrene; C34.90 Malignant neoplasm of unspecified part of unspecified bronchus or lung; C78.7 Secondary malignant neoplasm of liver and intrahepatic bile duct; C78.80 Secondary malignant neoplasm of unspecified digestive organ; C79.89 Secondary malignant neoplasm of other specified sites; I25.2 Old myocardial infarction; I42.8 Other cardiomyopathies; I49.3 Ventricular premature depolarization; I08.3 Combined rheumatic disorders of mitral, aortic and tricuspid valves; I27.20 Pulmonary hypertension, unspecified; G25.81 Restless legs syndrome; E78.5 Hyperlipidemia, unspecified; I25.10 Atherosclerotic heart disease of native coronary artery without angina pectoris; H91.93 Unspecified hearing loss, bilateral; I47.2 Ventricular tachycardia; E83.9 Disorder of mineral metabolism, unspecified; Z20.822 Contact with and (suspected) exposure to COVID-19; Z79.82 Long term (current) use of aspirin; Z79.02 Long term (current) use of antithrombotics/antiplatelets; Z79.899 Other long term (current) drug therapy; Z88.5 Allergy status to narcotic agent; Z91.048 Other nonmedicinal substance allergy status; Z95.1 Presence of aortocoronary bypass graft; Z95.5 Presence of coronary angioplasty implant and graft; Z95.810 Presence of automatic (implantable) cardiac defibrillator; Z99.2 Dependence on renal dialysis; Z87.891 Personal history of nicotine dependence; Z87.442 Personal history of urinary calculi; Z87.19 Personal history of other diseases of the digestive system; Z86.718 Personal history of other venous thrombosis and embolism; Z90.49 Acquired absence of other specified parts of digestive tract; Z98.890 Other specified postprocedural states; Z82.3 Family history of stroke; Z82.49 Family history of ischemic heart disease and other diseases of the circulatory system; Z82.0 Family history of epilepsy and other diseases of the nervous system
CPT/HCPCS: 90935; 96366 ×2; 96376; 96368; 96365; 99285; 36415; 94760; 93005; 93306; 85379; 83880; 80061; 80053; 83735; 84100; 84484; 85025 ×2; 85610 ×2; 85730; 87635; 71046; 78582; G0378 ×2; A9540; A9567; J1644 ×2; Q9950

== ENCOUNTER 2021-07-04 16:17 | Observation (INO) | payer BC ==
[2021-07-04] MEDS ORDERED: ASPIRIN 81 MG PO STA (16:39)
--- NOTE | 2021-07-04 16:58 | ED ---
General Adult HPI - General Chief complaint: Shortness of Breath Stated complaint: BECKY Time Seen by Provider: 07/04/21 16:22 Source: patient, RN notes reviewed, old records reviewed Mode of arrival: ambulatory Limitations: no limitations - History of Present Illness Initial comments: She is a 55-year-old male with past history remarkable for ESRD on hemodialysis TTS via right chest permacath, heart failure since associated, MIs, renal disease, DVTs, diabetes presents emergency department 1 day after discharge for continued shortness of breath. Patient was admitted on July 02, was found to have an elevated d-dimer as well as troponin was started on a heparin drip. He was evaluated by cardiology, and received dialysis yesterday. He is discharged home. He states however, that is not feeling improved. He states that today he feels once again worse. He was negative for pulmonary embolism based on VQ scan on last admission. Endorses worsening orthopnea, exertional dyspnea. Denies any PND, worsening lower extremity edema. Denies any chest pain, abdominal pain, nausea, vomiting. Was not vaccinated for COVID-19. His no other acute p oint at this time other than a mild productive cough of white mucus. Presents over concern for worsening dyspnea. Echo showed a severe volume overloaded left ventricle with EF less than 20%. - Related Data Home Medications Medication Instructions Recorded Confirmed Aspirin [Adult Low Dose Aspirin EC] 81 mg PO DAILY 03/31/17 07/04/21 Escitalopram [Lexapro] 10 mg PO HS 03/31/17 07/04/21 Rosuvastatin Calcium [Crestor] 40 mg PO DAILY 03/31/17 07/04/21 Carvedilol [Coreg] 12.5 mg PO BID 06/20/19 07/04/21 Insulin Glargine,Hum.rec.anlog 1 - 26 unit SQ SUMOWEFR PRN 02/18/21 07/04/21 [Basaglar Kwikpen U-100] calcitrioL [Calcitriol] 0.5 mcg PO TUTHSA 02/18/21 07/04/21 Dulaglutide [Trulicity] 3 mg SQ BARBER 04/07/21 07/04/21 Folic Acid-Vit B Complex-Vit C 1 cap PO TUTHSA 04/07/21 07/04/21 [Nephrocaps] Furosemide [Lasix] 60 mg PO BID@0900,1600 04/07/21 07/04/21 Insulin Lispro [humaLOG Kwikpen] 0 - 40 unit SQ TUTHSA PRN 04/07/21 07/04/21 Iron 50 Mg 50 mg IJ DAILY PRN 04/07/21 07/04/21 Sevelamer Carbonate 1,600 mg PO TID-W/MEALS 04/07/21 07/04/21 Calc Carb/Jennie D 1000 Units 1 tab PO DAILY 07/02/21 07/04/21 rOPINIRole HCL [Requip] 1 mg PO HS 07/02/21 07/04/21 traZODone HCL [Desyrel] 100 mg PO HS PRN 07/02/21 07/04/21 Nitroglycerin Sl Tabs [Nitrostat] 0.4 mg SL Q5M PRN 07/04/21 07/04/21 Previous Rx's Medication Instructions Recorded Clopidogrel [Plavix] 75 mg PO DAILY #90 tab 02/19/21 Allergies Allergy/AdvReac Type Severity Reaction Status Date / Time morphine Allergy Severe Rash/Hives Verified 07/04/21 18:01 adhesive tape Allergy Rash/Hives Verified 07/04/21 18:01 Review of Systems ROS Statement: Those systems with pertinent positive or pertinent negative responses have been documented in the HPI. Review of Systems: CONST: Denies fever EYES: Denies blurry vision ENT: Denies nasal congestion C/V: Denies Chest pain RESP: Endorses shortness of breath, exertional dyspnea GI: Denies abdominal pain : Denies dysuria SKIN: Denies rash. MSK: Denies joint pain. NEURO: Denies headache ROS Other: All systems not noted in ROS Statement are negative. Past Medical History Past Medical History: Coronary Artery Disease (CAD), Heart Failure, Diabetes Mellitus, Dialysis, Deep Vein Thrombosis (DVT), Hearing Disorder / Deafness, Hyperlipidemia, Myocardial Infarction ([place]), Renal Disease, Vascular Disorder Additional Past Medical History / Comment(s): IDDM type II, ESRD with hemodialysis //, cardiomyopathy/AICD/pacer, multiple MIs, PVD L leg, DVTs L leg x6, hypotension, occasional L ankle edema, RLS, L ear deaf and R ear has 30% hearing. Last Myocardial Infarction Date:: 02/18/21 History of Any Multi-Drug Resistant Organisms: None Reported Past Surgical History: AICD, Cardiac Ablation, Cholecystectomy, Coronary Bypass/CABG, Heart Catheterization, Heart Catheterization With Stent, Hernia Repair, Pacemaker, Tonsillectomy Additional Past Surgical History / Comment(s): AICD/pacer, cardiac ablations, PCI/stents x2, 2013 CABG 4 vessel, bilateral inguinal hernia repairs with r side done twice, peritoneal catheter since removed, R arm fistula never worked, R subclavian dialysis catheter. Past Anesthesia/Blood Transfusion Reactions: Postoperative Nausea & Vomiting (PONV) Date of Last Stent Placement:: 01/2021 Type of Cardiac Device: Permanent Pacemaker, AICD Device Placement Date:: 04/04/2017 [place] Past Psychological History: Anxiety Smoking Status: Former smoker Past Alcohol Use History: None Reported Past Drug Use History: None Reported - Past Family History Mother Family Medical History: Coronary Artery Disease (CAD), Dementia Additional Family Medical History / Comment(s): . Father Family Medical History: CVA/TIA Additional Family Medical History / Comment(s): of a CVA at the age of 47yrs. General Exam - General Exam Comments Initial Comments: General: Appears in mild distress secondary to subjective shortness of breath. No obvious increased work of breathing. HEAD: Normal with no signs of head trauma. EYES: PERRLA, EOMI, conjunctiva normal, no discharge. ENT: Hearing grossly intact, normal oropharynx. Patient is hard of hearing. RESPIRATORY: Clear breath sounds bilaterally. No wheezes, rales, or rhonchi. No hypoxia. No increased work of breathing. C/V: Regular rate and rhythm. S1 and S2 auscultated. Peripheral pulses are 2+ and intact throughout. Patient does have very mild pitting edema in the bilateral ankles. ABD: Abd is soft, nontender, nondistended EXT: Normal range of motion, no obvious deformity SKIN: No rashes or lesions observed on exposed skin. NEURO: Alert and oriented 4. No focal deficits. Limitations: no limitations Course Vital Signs 07/04/21 07/04/21 07/04/21 16:18 16:35 17:03 Temperature 97.5 F L Pulse Rate 72 71 Respiratory 20 18 18 Rate Blood Pressure 106/80 110/85 O2 Sat by Pulse 100 98 Oximetry Medical Decision Making - Medical Decision Making Based on the patient's presentation and physical exam, I'm concerned for an ac regino cardiopulmonary cause for his current symptoms. Likely related to his prior history. He did not miss dialysis. We will obtain basic laboratory studies, troponin. BNP will also be obtained. I do not believe that to the patient for a pulmonary embolus and his symptoms are similar and VQ scan done nearly a day ago showed no signs of a PE at that time. We will test her for COVID-19 fluids well. He will be given aspirin. He is placed on oxygen for comfort. Patient was in agreement this plan. EKG shows no acute changes no signs of acute ischemia. Patient's chest x-ray reveals improvement and pulmonary vascular congestion. Stable cardiomegaly. Laboratory studies are remarkable for an elevated BUN and creatinine in the setting of ESRD on hemodialysis. Troponin is elevated to 0.125, which is improved from 2 days ago on admission which was 0.22 at that time. He has no active chest pain. Patient's BNP is also improved to 33,000 down from 50,000 the other day. COVID-19 and influenza swabs are negative. I discussed the results with the patient. I would like to admitted to the hospital for his elevated troponin to ensure that it continues to down trend, however believe there is no acute process ongoing. He was in agreement this plan. He is feeling somewhat improved at this time. I spoke with the admitting physician, Dr. Maya who was in agreement with this plan. We will trend her troponins. Cardiology will be consulted to evaluate the patient the morning. I'm not concerned for ACS at this time, the patient does have a history of elevated troponin, this chest pain, and his troponin is improved from 2 days ago. We'll continue to monitor to ensure it is downtrending. He already received and aspirin. Patient was therefore admitted in stable condition to ob servation telemetry. - Lab Data Result diagrams: 07/04/21 16:44 07/04/21 16:44 Lab Results 07/04/21 07/04/21 07/04/21 Range/Units 16:44 16:44 16:44 WBC 7.5 (3.8-10.6) k/uL RBC 4.10 L (4.30-5.90) m/uL Hgb 12.8 L (13.0-17.5) gm/dL Hct 40.8 (39.0-53.0) % MCV 99.6 (80.0-100.0) fL MCH 31.1 (25.0-35.0) pg MCHC 31.2 (31.0-37.0) g/dL RDW 17.0 H (11.5-15.5) % Plt Count 135 L (150-450) k/uL MPV 10.2 Neutrophils % 74 % Lymphocytes % 15 % Monocytes % 6 % Eosinophils % 1 % Basophils % 1 % Neutrophils # 5.6 (1.3-7.7) k/uL Lymphocytes # 1.1 (1.0-4.8) k/uL Monocytes # 0.5 (0-1.0) k/uL Eosinophils # 0.0 (0-0.7) k/uL Basophils # 0.0 (0-0.2) k/uL Anisocytosis Slight Macrocytosis Slight Sodium 134 L (137-145) mmol/L Potassium 4.6 (3.5-5.1) mmol/L Chloride 96 L (98-107) mmol/L Carbon Dioxide 20 L (22-30) mmol/L Anion Gap 18 mmol/L BUN 90 H (9-20) mg/dL Creatinine 5.11 H (0.66-1.25) mg/dL Est GFR (CKD-EPI)AfAm 13 (>60 ml/min/1.73 sqM) Est GFR (CKD-EPI)NonAf 12 (>60 ml/min/1.73 sqM) Glucose 204 H (74-99) mg/dL Plasma Lactic Acid Grzegorz (0.7-2.0) mmol/L Calcium 9.7 (8.4-10.2) mg/dL Total Bilirubin 1.1 (0.2-1.3) mg/dL AST 24 (17-59) U/L ALT 35 (4-49) U/L Alkaline Phosphatase 77 (38-126) U/L Troponin I 0.125 H* (0.000-0.034) ng/mL NT-Pro-B Natriuret Pep pg/mL Total Protein 7.3 (6.3-8.2) g/dL Albumin 4.4 (3.5-5.0) g/dL Coronavirus (PCR) (Not Detectd) Influenza Type A RNA (Not Detectd) Influenza Type B (PCR) (Not Detectd) 07/04/21 07/04/21 07/04/21 Range/Units 16:44 16:45 17:03 WBC (3.8-10.6) k/uL RBC (4.30-5.90) m/uL Hgb (13.0-17.5) gm/dL Hct (39.0-53.0) % MCV (80.0-100.0) fL MCH (25.0-35.0) pg MCHC (31.0-37.0) g/dL RDW (11.5-15.5) % Plt Count (150-450) k/uL MPV Neutrophils % % Lymphocytes % % Monocytes % % Eosinophils % % Basophils % % Neutrophils # (1.3-7.7) k/uL Lymphocytes # (1.0-4.8) k/uL Monocytes # (0-1.0) k/uL Eosinophils # (0-0.7) k/uL Basophils # (0-0.2) k/uL Anisocytosis Macrocytosis Sodium (137-145) mmol/L Potassium (3.5-5.1) mmol/L Chloride (98-107) mmol/L Carbon Dioxide (22-30) mmol/L Anion Gap mmol/L BUN (9-20) mg/dL Creatinine (0.66-1.25) mg/dL Est GFR (CKD-EPI)AfAm (>60 ml/min/1.73 sqM) Est GFR (CKD-EPI)NonAf (>60 ml/min/1.73 sqM) Glucose (74-99) mg/dL Plasma Lactic Acid Grzegorz 1.9 (0.7-2.0) mmol/L Calcium (8.4-10.2) mg/dL Total Bilirubin (0.2-1.3) mg/dL AST (17-59) U/L ALT (4-49) U/L Alkaline Phosphatase (38-126) U/L Troponin I (0.000-0.034) ng/mL NT-Pro-B Natriuret Pep 65824 pg/mL Total Protein (6.3-8.2) g/dL Albumin (3.5-5.0) g/dL Coronavirus (PCR) (Not Detectd) Influenza Type A RNA Not Detected (Not Detectd) Influenza Type B (PCR) Not Detected (Not Detectd) 07/04/21 Range/Units 17:03 WBC (3.8-10.6) k/uL RBC (4.30-5.90) m/uL Hgb (13.0-17.5) gm/dL Hct (39.0-53.0) % MCV (80.0-100.0) fL MCH (25.0-35.0) pg MCHC (31.0-37.0) g/dL RDW (11.5-15.5) % Plt Count (150-450) k/uL MPV Neutrophils % % Lymphocytes % % Monocytes % % Eosinophils % % Basophils % % Neutrophils # (1.3-7.7) k/uL Lymphocytes # (1.0-4.8) k/uL Monocytes # (0-1.0) k/uL Eosinophils # (0-0.7) k/uL Basophils # (0-0.2) k/uL Anisocytosis Macrocytosis Sodium (137-145) mmol/L Potassium (3.5-5.1) mmol/L Chloride (98-107) mmol/L Carbon Dioxide (22-30) mmol/L Anion Gap mmol/L BUN (9-20) mg/dL Creatinine (0.66-1.25) mg/dL Est GFR (CKD-EPI)AfAm (>60 ml/min/1.73 sqM) Est GFR (CKD-EPI)NonAf (>60 ml/min/1.73 sqM) Glucose (74-99) mg/dL Plasma Lactic Acid Grzegorz (0.7-2.0) mmol/L Calcium (8.4-10.2) mg/dL Total Bilirubin (0.2-1.3) mg/dL AST (17-59) U/L ALT (4-49) U/L Alkaline Phosphatase (38-126) U/L Troponin I (0.000-0.034) ng/mL NT-Pro-B Natriuret Pep pg/mL Total Protein (6.3-8.2) g/dL Albumin (3.5-5.0) g/dL Coronavirus (PCR) Not Detected (Not Detectd) Influenza Type A RNA (Not Detectd) Influenza Type B (PCR) (Not Detectd) - EKG Data -: EKG Interpreted by Me EKG Comments: 12-lead Electrocardiogram Interpretation Note EKG was reviewed and interpreted by myself. 12-lead ECG performed at 1628 is interpreted by me as revealing normal sinus rhythm with first-degree AV block and left bundle branch block which is chronic at a rate of at 71 beats per minute. [place] is normal. MI interval is 212 ms. QS duration is 124 ms. QTC is 497 ms.. There are isolated T-wave inversions in lead V6, aVL which is seen on prior EKGs. There is a chronic left bundle branch block. There were no ST or T wave abnormalities to suggest myocardial ischemia or injury. R wave progression across the precordium was satisfactory. By my interpretation this EKG is non-diagnostic for acute ischemia. Disposition Clinical Impression: Shortness of breath, Congestive heart failure, ESRD on dialysis, Elevated troponin Disposition: ADMITTED IP TO THIS HOSP Condition: Stable Referrals: Maurice Hernandez MD [Primary Care Provider] - 1-2 days
--- NOTE | 2021-07-04 17:29 | XR ---
EXAMINATION TYPE: XR chest 2V DATE OF EXAM: 07/04/2021 COMPARISON: Chest radiograph 07/02/2021 HISTORY: Shortness of breath TECHNIQUE: Frontal and lateral views of the chest are obtained. FINDINGS: Median sternotomy wires. Left chest wall pacemaker with the tip over the right ventricle. Right IJ double lumen catheter with the tip over the right atrium. The heart is enlarged, stable. Pulmonary vasculature is within normal limits. The lungs are clear. IMPRESSION: Stable cardiomegaly with improved aeration aeration bilaterally. No consolidation, effus ion or pneumothorax.
[2021-07-04 17:31] LABS: Albumin 4.4 g/dL (3.5-5.0); Calcium 9.7 mg/dL (8.4-10.2); Potassium 4.6 mmol/L (3.5-5.1); Total Bilirubin 1.1 mg/dL (0.2-1.3); Total Protein 7.3 g/dL (6.3-8.2)
[2021-07-04 17:48] LABS: Anisocytosis Slight; Basophils % (A) 1 %; Eosinophils % (A) 1 %; HCT 40.8 % (39.0-53.0); HGB 12.8 gm/dL (13.0-17.5); Lymphocytes # (A) 1.1 k/uL (1.0-4.8); Lymphocytes % (A) 15 %; MCH 31.1 pg (25.0-35.0); MCHC 31.2 g/dL (31.0-37.0); MCV 99.6 fL (80.0-100.0); Macrocytosis Slight; Mean Platelet Volume 10.2; Monocytes # (A) 0.5 k/uL (0-1.0); Monocytes % (A) 6 %; Neutrophils # (A) 5.6 k/uL (1.3-7.7); Neutrophils % (A) 74 %; Platelet Count 135 k/uL (150-450); WBC 7.5 k/uL (3.8-10.6)
[2021-07-04] MEDS ORDERED: NALOXONE 0.4 MG/ML 1 ML VIAL IV PRN (18:46)
[2021-07-04] MEDS ORDERED: traZODone HCL 100 MG TAB PO PRN (18:51)
[2021-07-04] MEDS ORDERED: FERROUS SULFATE 325 MG TAB PO PRN (18:51)
[2021-07-04] MEDS ORDERED: ESCITALOPRAM 10 MG TAB PO SCH (21:00)
[2021-07-04] MEDS: carvediloL 12.5 MG TAB PO SCH (21:16)
[2021-07-04] MEDS: HEPARIN SODIUM,PORCINE/PF 5,000 UNIT/0.5 ML SYRINGE SQ SCH ×2 (21:16→22:11)
[2021-07-05] MEDS ORDERED: SEVELAMER 800 MG TAB PO SCH (07:30)
[2021-07-05 08:04] LABS: Glucose,Whole Blood 188 mg/dL (75-99)
[2021-07-05] MEDS: HEPARIN SODIUM,PORCINE/PF 5,000 UNIT/0.5 ML SYRINGE SQ SCH (08:47)
[2021-07-05] MEDS: carvediloL 12.5 MG TAB PO SCH (08:47)
[2021-07-05] MEDS: INSULIN ASPART (NovoLOG) 100 UNIT/ML VIAL SQ SCH ×2 (08:48→12:46)
[2021-07-05] MEDS ORDERED: ATORVASTATIN 80 MG TAB PO SCH (09:00)
[2021-07-05] MEDS ORDERED: FUROSEMIDE 40 MG TAB PO SCH (09:00)
[2021-07-05] MEDS ORDERED: CALCIUM CARB-VIT D 500 MG-5 MCG TAB PO SCH (09:00)
[2021-07-05] MEDS ORDERED: ASPIRIN 81 MG PO SCH (09:00)
[2021-07-05] MEDS ORDERED: CLOPIDOGREL 75 MG TAB PO SCH (09:00)
[2021-07-05 09:09] LABS: African American GFR (CKD) 12.4 (60.0-200.0); Albumin 4.2 g/dL (3.8-4.9); Albumin/Globulin Ratio 1.68 (1.60-3.17); Anion Gap 22.5 mmol/L (10.00-18.00); BUN/Creat Ratio 17.24 Ratio (12.00-20.00); Blood Urea Nitrogen 94.8 mg/dL (9.0-27.0); Calcium 9.9 mg/dL (8.7-10.3); Carbon Dioxide 19.5 mmol/L (20.0-27.5); Globulin 2.5 g/dL (1.6-3.3); Magnesium 2.6 mg/dL (1.5-2.4); Non-African American GFR(CKD) 10.7 (60.0-200.0); Potassium 5.1 mmol/L (3.5-5.5); Total Protein 6.7 g/dL (6.2-8.2)
[2021-07-05 09:14] VITALS: BP 116/86; PULSE 69; RESP 16; TEMP 97.4
--- NOTE | 2021-07-05 10:01 | P.CRDCN ---
History of Present Illness Consult date: 07/05/21 History of present illness: HISTORY OF PRESENT ILLNESS: This is a 55-year-old male with a past medical history significant for coronary artery disease with previous CABG and subsequent multivessel PCI, ischemic cardiomyopathy with previous AICD implantation, congestive heart failure, jugular tachycardia with previous ablation, diabetes, and end-stage renal disease on hemodialysis. Patient follows in the office with Dr. Freedman. We have been asked to see the patient in consultation for elevated troponin. Patient examined at the bedside. Patient was recently in the hospital secondary to shortness of breath. Patient underwent VQ scan at that time which was negative for PE. An acute coronary event was ruled out. The patient was discharged home in stable condition. The patient presents back to the hospital with continued shortness of breath. He states his shortness of breath is mostly with exertion. He states he has been taking all of his medications as prescribed including his Lasix. He does have end-stage renal disease and is on hemodialysis Monday and Monday. He states he has been receiving dialysis and has been tolerating it well. He reports he continues to urinate a little bit. He reports his weight has been stable at home. He denies any chest pain or pressure. EKG reveals sinus mechanism with T-wave inversions in anterior lateral leads, similar to previous EKG Chest xray stable cardiomegaly with improved aeration bilaterally. No consolidation, effusion, or pneumothorax Laboratory data: WBC 7.5. Hemoglobin 12.8. Platelet count 135. Sodium 134. Potassium 4.6. BUN 90. Creatinine 5.11. Lactic acid 1.9. ProBNP 33,800. Troponin 0.125. 0.118. 0.110. Current home cardiac medications include Crestor 40 mg daily, Lasix 60 mg twice a day, Plavix 75 mg daily, carvedilol 12.5 mg twice a day, aspirin 81 mg daily Echocardiogram obtained in November 2020 revealed ejection fraction less than 20%, right ventricle moderate to severely enlarged, trace aortic regurgitation, mild aortic stenosis, moderate mitral regurgitation, moderate tricuspid regurgitation, and moderate pulmonary hypertension with RVSP of 47.43 mmHg. Repeat echocardiogram obtained in June 2021 revealed ejection fraction less than 20%, trace to mild aortic regurgitation, mild aortic stenosis, mild mitral regurgitation, moderate tricuspid regurgitation, and mild pulmonary hypertension with no evidence of pericardial effusion. Cardiac catheterization history: January [address] Parson with PCI to the LAD and ramus intermedius. REVIEW OF SYSTEMS: At the time of my exam: CONSTITUTIONAL: Denies fever or chills. HEENT: Denies blurred vision, vision changes, or eye pain. Denies hemoptysis CARDIOVASCULAR: Denies chest pain. Denies orthopnea. Denies PND. Denies palpitations RESPIRATORY: + shortness of breath. GASTROINTESTINAL: Denies abdominal pain. Denies nausea or vomiting. HEMATOLOGIC: Denies bleeding disorders. GENITOURINARY: Denies any blood in urine. SKIN: Denies pruitis. Denies rash. PHYSICAL EXAM: VITAL SIGNS: Reviewed. GENERAL: Well-developed in no acute distress. HEENT: Head is normocephalic. Pupils are equal, round. Sclerae anicteric. Mucous membranes of the mouth are moist. Neck supple. + JVD LUNGS: Respirations even and unlabored. Lungs diminished bilaterally. HEART: Regular rate and rhythm. S1 and S2 heard. Systolic and diastolic murmur noted. ABDOMEN: Soft. Nondistended. Nontender. EXTREMITIES: Normal range of motion. No clubbing or cyanosis. Peripheral pulses intact. Trace edema of left lower extremity. NEUROLOGIC: Awake and alert. Oriented x 3. ASSESSMENT: Shortness of breath Abnormal troponin, secondary to CKD, no evidence of ACS Coronary artery disease with previous CABG and subsequent multivessel PCI History of NSTEMI, January 2021 with PCI to LAD and ramus intermedius History of ischemic cardiomyopathy with previous AICD implantation History of ventricular tachycardia with previous ablation End-stage renal disease on hemodialysis, Monday Valvular heart disease Chronic congestive heart failure with reduced EF History of DVT PLAN: No need to repeat echo as this was performed earlier this month Continue home cardiac medications Add low dose lisinopril 2.5 mg daily Consult nephrology for evaluation Further recommendations pending patient's course Nurse practitioner note has been reviewed by physician. Signing provider agrees with the documented findings, assessment, and plan of care. Past Medical History Past Medical History: Coronary Artery Disease (CAD), Heart Failure, Diabetes Mellitus, Dialysis, Deep Vein Thrombosis (DVT), Hearing Disorder / Deafness, Hyperlipidemia, Myocardial Infarction ([place]), Renal Disease, Vascular Disorder Additional Past Medical History / Comment(s): IDDM type II, ESRD with hemodialysis //, cardiomyopathy/AICD/pacer, multiple MIs, PVD L leg, DVTs L leg x6, hypotension, occasional L ankle edema, RLS, L ear deaf and R ear has 30% hearing. Last Myocardial Infarction Date:: 02/18/21 History of Any Multi-Drug Resistant Organisms: None Reported Past Surgical History: AICD, Cardiac Ablation, Cholecystectomy, Coronary Bypass/CABG, Heart Catheterization, Heart Catheterization With Stent, Hernia Repair, Pacemaker, Tonsillectomy Additional Past Surgical History / Comment(s): AICD/pacer, cardiac ablations, PCI/stents x2, 2013 CABG 4 vessel, bilateral inguinal hernia repairs with r side done twice, peritoneal catheter since removed, R arm fistula never worked, R subclavian dialysis catheter. Past Anesthesia/Blood Transfusion Reactions: Postoperative Nausea & Vomiting (PONV) Date of Last Stent Placement:: 01/2021 Type of Cardiac Device: Permanent Pacemaker, AICD Device Placement Date:: 04/04/2017 [employer] Past Psychological History: Anxiety Additional Psychological History / Comment(s): Pt resides with his spouse. He is independent. Smoking Status: Never smoker Past Alcohol Use History: None Reported Additional Past Alcohol Use History / Comment(s): Started smoking at age 18 (1983), smoked 1PPD, quit in 2019. Past Drug Use History: None Reported - Past Family History Mother Family Medical History: Coronary Artery Disease (CAD), Dementia Additional Family Medical History / Comment(s): . Father Family Medical History: CVA/TIA Additional Family Medical History / Comment(s): of a CVA at the age of 47yrs. Medications and Allergies Home Medications Medication Instructions Recorded Confirmed Type Aspirin [Adult Low Dose Aspirin EC] 81 mg PO DAILY 03/31/17 07/04/21 History Escitalopram [Lexapro] 10 mg PO HS 03/31/17 07/04/21 History Rosuvastatin Calcium [Crestor] 40 mg PO DAILY 03/31/17 07/04/21 History Carvedilol [Coreg] 12.5 mg PO BID 06/20/19 07/04/21 History Insulin Glargine,Hum.rec.anlog 1 - 26 unit SQ SUMOWEFR PRN 02/18/21 07/04/21 History [Esme Guerin U-100] calcitrioL [Calcitriol] 0.5 mcg PO TUTHSA 02/18/21 07/04/21 History Clopidogrel [Plavix] 75 mg PO DAILY #90 tab 02/19/21 07/04/21 Rx Dulaglutide [Trulicity] 3 mg SQ BARBER 04/07/21 07/04/21 History Folic Acid-Vit B Complex-Vit C 1 cap PO TUTHSA 04/07/21 07/04/21 History [Nephrocaps] Furosemide [Lasix] 60 mg PO BID@0900,1600 04/07/21 07/04/21 History Insulin Lispro [humaLOG Kwikpen] 0 - 40 unit SQ TUTA PRN 04/07/21 07/04/21 History Iron 50 Mg 50 mg IJ DAILY PRN 04/07/21 07/04/21 History Sevelamer Carbonate 1,600 mg PO TID-W/MEALS 04/07/21 07/04/21 History Calc Carb/Jennie D 1000 Units 1 tab PO DAILY 07/02/21 07/04/21 History rOPINIRole HCL [Requip] 1 mg PO HS 07/02/21 07/04/21 History traZODone HCL [Desyrel] 100 mg PO HS PRN 07/02/21 07/04/21 History Nitroglycerin Sl Tabs [Nitrostat] 0.4 mg SL Q5M PRN 07/04/21 07/04/21 History Allergies Allergy/AdvReac Type Severity Reaction Status Date / Time morphine Allergy Severe Rash/Hives Verified 07/04/21 18:01 adhesive tape Allergy Rash/Hives Verified 07/04/21 18:01 Physical Exam Vitals: Vital Signs Temp Pulse Pulse Resp BP BP Pulse Ox 07/05/21 08:03 99 07/05/21 01:48 98.0 F 64 20 108/76 97 07/04/21 20:46 97.6 F 73 20 108/77 98 07/04/21 20:21 98.2 F 74 18 101/84 99 07/04/21 17:03 71 18 110/85 98 07/04/21 16:35 18 07/04/21 16:18 97.5 F L 72 20 106/80 100 Intake and Output 07/04/21 07/05/21 07/05/21 22:59 06:59 14:59 Other: # Voids 1 1 Weight 86.183 kg Results 07/04/21 16:44 07/05/21 06:06 Cardiac Enzymes 07/04/21 07/04/21 07/04/21 Range/Units 16:44 16:44 20:38 AST 24 (17-59) U/L Troponin I 0.125 H* 0.118 H* (0.000-0.034) ng/mL 07/04/21 Range/Units 23:40 AST (17-59) U/L Troponin I 0.110 H* (0.000-0.034) ng/mL CBC 07/04/21 Range/Units 16:44 WBC 7.5 (3.8-10.6) k/uL RBC 4.10 L (4.30-5.90) m/uL Hgb 12.8 L (13.0-17.5) gm/dL Hct 40.8 (39.0-53.0) % Plt Count 135 L (150-450) k/uL Comprehensive Metabolic Panel 07/04/21 Range/Units 16:44 Sodium 134 L (137-145) mmol/L Potassium 4.6 (3.5-5.1) mmol/L Chloride 96 L (98-107) mmol/L Carbon Dioxide 20 L (22-30) mmol/L BUN 90 H (9-20) mg/dL Creatinine 5.11 H (0.66-1.25) mg/dL Glucose 204 H (74-99) mg/dL Calcium 9.7 (8.4-10.2) mg/dL AST 24 (17-59) U/L ALT 35 (4-49) U/L Alkaline Phosphatase 77 (38-126) U/L Total Protein 7.3 (6.3-8.2) g/dL Albumin 4.4 (3.5-5.0) g/dL Current Medications Generic Name Dose Route Start Last Admin Trade Name Freq PRN Reason Stop Dose Admin Aspirin 81 mg 07/05/21 09:00 Aspirin 81 Mg PO DAILY [facility] Atorvastatin Calcium 80 mg 07/05/21 09:00 Atorvastatin 80 Mg Tab PO DAILY [facility] Calcitriol 0.5 mcg 07/06/21 09:00 Calcitriol 0.25 Mcg Cap PO TUTHSA [facility] Calcium Carbonate 1 each 07/05/21 09:00 Calcium Carb-Vit D 500 Mg-5 Mcg Tab PO DAILY [facility] Carvedilol 12.5 mg 07/04/21 21:00 07/04/21 21:16 Carvedilol 12.5 Mg Tab PO 12.5 mg BID-W/MEALS ASHLEY Administration Clopidogrel Bisulfate 75 mg 07/05/21 09:00 Clopidogrel 75 Mg Tab PO DAILY ASHLEY Escitalopram Oxalate 10 mg 07/04/21 21:00 07/04/21 21:16 Escitalopram 10 Mg Tab PO 10 mg HS ASHLEY Administration Ferrous Sulfate 325 mg 07/04/21 18:51 Ferrous Sulfate 325 Mg Tab PO DAILY PRN ANEMIA Furosemide 60 mg 07/05/21 09:00 Furosemide 40 Mg Tab PO BID@0900,1600 [facility] Heparin Sodium (Porcine) 5,000 unit 07/04/21 19:00 07/04/21 22:11 Heparin Sodium,Porcine/Pf 5,000 Unit/0.5 Ml Syringe SQ Not Given Q8HR ASHLEY Insulin Aspart 0 unit 07/05/21 07:30 Insulin Aspart (Novolog) 100 Unit/Ml Vial SQ AC-TID [facility] Protocol Naloxone HCl 0.2 mg 07/04/21 18:46 Naloxone 0.4 Mg/Ml 1 Ml Vial IV Q2M PRN Opioid Reversal Non-Formulary Medication 3 mg 07/11/21 09:00 Dulaglutide [Trulicity] SQ BARBER ASHLEY Ropinirole HCl 1 mg 07/04/21 22:00 07/04/21 22:05 Ropinirole Hcl 1 Mg Tab PO 1 mg HS ASHLEY Administration Sevelamer Carbonate 1,600 mg 07/05/21 07:30 Sevelamer 800 Mg Tab PO TID-W/MEALS ASHLEY Trazodone HCl 100 mg 07/04/21 18:51 07/04/21 22:05 Trazodone Hcl 100 Mg Tab PO 100 mg HS PRN Administration Insomnia Intake and Output 07/04/21 07/05/21 07/05/21 22:59 06:59 14:59 Other: # Voids 1 1 Weight 86.183 kg 07/04/21 16:44 07/04/21 16:44
[2021-07-05 12:04] LABS: Basophils # (A) 0.03 X 10*3/uL (0.00-0.10); Basophils % (A) 0.5 %; Eosinophils # (A) 0.02 X 10*3/uL (0.04-0.35); Eosinophils % (A) 0.3 %; HCT 37.6 % (39.6-50.0); Immature Grans, Automated 0.2 %; Lymphocytes # (A) 0.77 X 10*3/uL (0.90-5.00); Lymphocytes % (A) 11.9 %; MCH 30.4 pg (27.0-32.0); MCHC 31.9 g/dL (32.0-37.0); MCV 95.2 fL (80.0-97.0); Mean Platelet Volume 12.1 fL (9.5-12.2); Monocytes # (A) 0.54 X 10*3/uL (0.20-1.00); Monocytes % (A) 8.4 %; NRBC Per 100 WBC 0 /100 WBCS (0.0-0.0); Neutrophils # (A) 5.09 X 10*3/uL (1.80-7.70); Neutrophils % (A) 78.7 %; Platelet Count 117 X 10*3/uL (140-440); RBC 3.95 X 10*6/uL (4.40-5.60); RDW 16.5 % (11.5-14.5); WBC 6.46 X 10*3/uL (4.50-10.00)
--- NOTE | 2021-07-05 12:20 | P.HPIM ---
History of Present Illness H&P Date: 07/05/21 Chief Complaint: Worsening dyspnea History and Physical and Discharge Summary: This a 55-year-old gentleman with past medical history of CAD, [place], CABG, CHF, ischemic cardiomyopathy with AICD, diabetes mellitus, chronic DVT, hypertension and hyperlipidemia, prior nicotine dependence, end-stage renal disease on hemodialysis and multiple other medical issues, discharged from hospital on 07/03/2021 with a component of volume overload, received hemodialysis, presented to the ER with complaints of worsening dyspnea. Denies chest pain, palpitations or shortness of breath. Troponins mildly elevated, (decreased from prior admission, related to chronic kidney disease with no evidence of acute coronary syndrome as per cardiology). VQ scan from prior visit reported low probability for PE. Vital signs stable, maintaining O2 sats in the high 90s on room air. Afebrile Cardiology and nephrology consult in place. Patient now adamant about being discharged home states shortness of breath was mainly exertional and has resolved. Review of Systems ROS Statement: Those systems with pertinent positive or pertinent negative responses have been documented in the HPI. ROS Other: All systems not noted in ROS Statement are negative. Past Medical History Past Medical History: Coronary Artery Disease (CAD), Heart Failure, Diabetes Mellitus, Dialysis, Deep Vein Thrombosis (DVT), Hearing Disorder / Deafness, Hyperlipidemia, Myocardial Infarction ([place]), Renal Disease, Vascular Disorder Additional Past Medical History / Comment(s): IDDM type II, ESRD with hemodialysis //, cardiomyopathy/AICD/pacer, multiple MIs, PVD L leg, DVTs L leg x6, hypotension, occasional L ankle edema, RLS, L ear deaf and R ear has 30% hearing. Last Myocardial Infarction Date:: 02/18/21 History of Any Multi-Drug Resistant Organisms: None Reported Past Surgical History: AICD, Cardiac Ablation, Cholecystectomy, Coronary Bypass/CABG, Heart Catheterization, Heart Catheterization With Stent, Hernia Repair, Pacemaker, Tonsillectomy Additional Past Surgical History / Comment(s): AICD/pacer, cardiac ablations, PCI/stents x2, 2013 CABG 4 vessel, bilateral inguinal hernia repairs with r side done twice, peritoneal catheter since removed, R arm fistula never worked, R subclavian dialysis catheter. Past Anesthesia/Blood Transfusion Reactions: Postoperative Nausea & Vomiting (PONV) Date of Last Stent Placement:: 01/2021 Type of Cardiac Device: Permanent Pacemaker, AICD Device Placement Date:: 04/04/2017 [employer] Past Psychological History: Anxiety Additional Psychological History / Comment(s): Pt resides with his spouse. He is independent. Smoking Status: Never smoker Past Alcohol Use History: None Reported Additional Past Alcohol Use History / Comment(s): Started smoking at age 18 (1983), smoked 1PPD, quit in 2019. Past Drug Use History: None Reported - Past Family History Mother Family Medical History: Coronary Artery Disease (CAD), Dementia Additional Family Medical History / Comment(s): . Father Family Medical History: CVA/TIA Additional Family Medical History / Comment(s): of a CVA at the age of 47yrs. Medications and Allergies Home Medications Medication Instructions Recorded Confirmed Type Aspirin [Adult Low Dose Aspirin EC] 81 mg PO DAILY 03/31/17 07/04/21 History Escitalopram [Lexapro] 10 mg PO HS 03/31/17 07/04/21 History Rosuvastatin Calcium [Crestor] 40 mg PO DAILY 03/31/17 07/04/21 History Carvedilol [Coreg] 12.5 mg PO BID 06/20/19 07/04/21 History Insulin Glargine,Hum.rec.anlog 1 - 26 unit SQ SUMOWEFR PRN 02/18/21 07/04/21 History [Basaglar Kwikpen U-100] calcitrioL [Calcitriol] 0.5 mcg PO TUTHSA 02/18/21 07/04/21 History Clopidogrel [Plavix] 75 mg PO DAILY #90 tab 02/19/21 07/04/21 Rx Dulaglutide [Trulicity] 3 mg SQ BARBER 04/07/21 07/04/21 History Folic Acid-Vit B Complex-Vit C 1 cap PO TUTHSA 04/07/21 07/04/21 History [Nephrocaps] Furosemide [Lasix] 60 mg PO BID@0900,1600 04/07/21 07/04/21 History Insulin Lispro [humaLOG Kwikpen] 0 - 40 unit SQ TUTHSA PRN 04/07/21 07/04/21 History Iron 50 Mg 50 mg IJ DAILY PRN 04/07/21 07/04/21 History Sevelamer Carbonate 1,600 mg PO TID-W/MEALS 04/07/21 07/04/21 History Calc Carb/Jennie D 1000 Units 1 tab PO DAILY 07/02/21 07/04/21 History rOPINIRole HCL [Requip] 1 mg PO HS 07/02/21 07/04/21 History traZODone HCL [Desyrel] 100 mg PO HS PRN 07/02/21 07/04/21 History Nitroglycerin Sl Tabs [Nitrostat] 0.4 mg SL Q5M PRN 07/04/21 07/04/21 History Allergies Allergy/AdvReac Type Severity Reaction Status Date / Time morphine Allergy Severe Rash/Hives Verified 07/04/21 18:01 adhesive tape Allergy Rash/Hives Verified 07/04/21 18:01 Physical Exam Vitals: Vital Signs Temp Pulse Pulse Resp BP BP Pulse Ox 07/05/21 08:03 99 07/05/21 07:00 97.4 F L 69 16 116/86 99 07/05/21 01:48 98.0 F 64 20 108/76 97 07/04/21 20:46 97.6 F 73 20 108/77 98 07/04/21 20:21 98.2 F 74 18 101/84 99 07/04/21 17:03 71 18 110/85 98 07/04/21 16:35 18 07/04/21 16:18 97.5 F L 72 20 106/80 100 Intake and Output 07/04/21 07/05/21 07/05/21 22:59 06:59 14:59 Intake Total 118 Balance 118 Intake: Oral 118 Other: # Voids 1 1 Weight 86.183 kg - Exam PHYSICAL EXAM: VITAL SIGNS: As above GENERAL: Alert and oriented 3, Sitting up in bed, no acute distress HEENT: Conjunctivae normal. eyes normal. Oral mucosa moist NECK: Supple, No JVD CARDIOVASCULAR: S1, S2 regular. Systolic murmur RESPIRATION: Bilateral bases diminished. No rhonchi or crackles. ABDOMEN: Soft, nondistended, nontender, no masses palpable, no guarding ,Positive Bowel sounds. LEGS: trace edema. intact peripheral pulses NERVOUS SYSTEM: Cranial N 2-12 grossly normal. No focal deficits. Strength and sensation grossly intact. Skin: Warm and dry, no rash Results CBC & Chem 7: 07/04/21 16:44 07/05/21 06:06 Labs: Abnormal Lab Results - Last 24 Hours (Table) 07/04/21 07/04/21 07/04/21 Range/Units 16:44 16:44 16:44 RBC 4.10 L (4.30-5.90) m/uL Hgb 12.8 L (13.0-17.5) gm/dL RDW 17.0 H (11.5-15.5) % Plt Count 135 L (150-450) k/uL Sodium 134 L (137-145) mmol/L Chloride 96 L (98-107) mmol/L Carbon Dioxide 20 L (22-30) mmol/L Anion Gap (10.00-18.00) mmol/L BUN 90 H (9-20) mg/dL Creatinine 5.11 H (0.66-1.25) mg/dL Est GFR (CKD-EPI)AfAm (60.0-200.0) Est GFR (CKD-EPI)NonAf (60.0-200.0) Glucose 204 H (74-99) mg/dL POC Glucose (mg/dL) (75-99) mg/dL Magnesium (1.5-2.4) mg/dL Troponin I 0.125 H* (0.000-0.034) ng/mL 07/04/21 07/04/21 07/05/21 Range/Units 20:38 23:40 06:06 RBC (4.30-5.90) m/uL Hgb (13.0-17.5) gm/dL RDW (11.5-15.5) % Plt Count (150-450) k/uL Sodium (137-145) mmol/L Chloride 94 L (98-107) mmol/L Carbon Dioxide 19.5 L (22-30) mmol/L Anion Gap 22.50 H (10.00-18.00) mmol/L BUN 94.8 H (9-20) mg/dL Creatinine 5.5 H (0.66-1.25) mg/dL Est GFR (CKD-EPI)AfAm 12.4 L (60.0-200.0) Est GFR (CKD-EPI)NonAf 10.7 L (60.0-200.0) Glucose 197 H (74-99) mg/dL POC Glucose (mg/dL) (75-99) mg/dL Magnesium 2.6 H (1.5-2.4) mg/dL Troponin I 0.118 H* 0.110 H* (0.000-0.034) ng/mL 07/05/21 Range/Units 08:03 RBC (4.30-5.90) m/uL Hgb (13.0-17.5) gm/dL RDW (11.5-15.5) % Plt Count (150-450) k/uL Sodium (137-145) mmol/L Chloride (98-107) mmol/L Carbon Dioxide (22-30) mmol/L Anion Gap (10.00-18.00) mmol/L BUN (9-20) mg/dL Creatinine (0.66-1.25) mg/dL Est GFR (CKD-EPI)AfAm (60.0-200.0) Est GFR (CKD-EPI)NonAf (60.0-200.0) Glucose (74-99) mg/dL POC Glucose (mg/dL) 188 H (75-99) mg/dL Magnesium (1.5-2.4) mg/dL Troponin I (0.000-0.034) ng/mL Thrombosis Risk Factor Assmnt - Choose All That Apply Any of the Below Risk Factors Present?: Yes Each Factor Represents 1 point: Age 41-60 years, Obesity (BMI >25), Swollen legs (current) Other Risk Factors: Yes Each Risk Factor Represents 3 Points: History of DVT/PE Other congenital or acquired thrombophilia - If yes, enter type in comment: No Thrombosis Risk Factor Assessment Total Risk Factor Score: 6 Thrombosis Risk Factor Assessment Level: High Risk Assessment and Plan Assessment: Shortness of breath, secondary to CKD, VQ on prior admission reported low p robability of PE. Patient states resolved. Abnormal troponins, decreased from prior admission, secondary to CK D is no evidence of ACS as per cardiology CAD, [place], CABG, Chronic CHF, systolic Ischemic cardiomyopathy with AICD End-stage renal disease on HD Monday, , Monday Moderate pulmonary hypertension History of VT, status post ablation Diabetes mellitus Chronic DVT Hypertension Hyperlipidemia Plan: Continue on current medication regime ,monitoring and symptomatic treatment. Patient will be discharged home today pending final DC recommendations and clearance per cardiology and nephrology. Discharge Medication List Aspirin [Adult Low Dose Aspirin EC] 81 mg PO DAILY 03/31/17 [History] Escitalopram [Lexapro] 10 mg PO HS 03/31/17 [History] Rosuvastatin Calcium [Crestor] 40 mg PO DAILY 03/31/17 [History] Carvedilol [Coreg] 12.5 mg PO BID 06/20/19 [History] Insulin Glargine,Hum.rec.anlog [Basaglar Kwikpen U-100] 1 - 26 unit SQ SUMOWEFR PRN 02/18/21 [History] calcitrioL [Calcitriol] 0.5 mcg PO TUTHSA 02/18/21 [History] Clopidogrel [Plavix] 75 mg PO DAILY #90 tab 02/19/21 [Rx] Dulaglutide [Trulicity] 3 mg SQ BARBER 04/07/21 [History] Folic Acid-Vit B Complex-Vit C [Nephrocaps] 1 cap PO TUTHSA 04/07/21 [History] Furosemide [Lasix] 60 mg PO BID@0900,1600 04/07/21 [History] Insulin Lispro [humaLOG Kwikpen] 0 - 40 unit SQ TUTHSA PRN 04/07/21 [History] Iron 50 Mg 50 mg IJ DAILY PRN 04/07/21 [History] Sevelamer Carbonate 1,600 mg PO TID-W/MEALS 04/07/21 [History] Calc Carb/Jennie D 1000 Units 1 tab PO DAILY 07/02/21 [History] rOPINIRole HCL [Requip] 1 mg PO HS 07/02/21 [History] traZODone HCL [Desyrel] 100 mg PO HS PRN 07/02/21 [History] Nitroglycerin Sl Tabs [Nitrostat] 0.4 mg SL Q5M PRN 07/04/21 [History] The impression and plan of care has been dictated as directed. : I performed a history and examination of this patient, discussed the same with the dictator. I agree with the dictator's note ,documented as a scribe. Any additional findings or plans will be noted.
[2021-07-05 12:44] LABS: Glucose,Whole Blood 239 mg/dL (75-99)
[2021-07-05 13:47] LABS: Hepatitis B Surface Antigen Nonreactive (Nonreactive)
--- NOTE | 2021-07-05 14:55 | P.NPCON ---
History of Present Illness - Reason for Consult end stage renal disease - History of Present Illness Patient is a 55-year-old male with end-stage renal disease on hemodialysis on a Monday schedule. Patient was admitted to the hospital with complaints of shortness of breath. He has not missed any dialysis as outpatient. Patient had the mildly elevated troponins. He has been evaluated by cardiology. No plans for intervention at this time. There is concern for possible volume overload however patient has no significant edema and chest x-ray does not show any pulmonary vascular congestion as well. Patient states that his shortness of breath has improved now. He is currently not maintained on any oxygen. Review of Systems As per HPI other systems negative Past Medical History Past Medical History: Coronary Artery Disease (CAD), Heart Failure, Diabetes Mellitus, Dialysis, Deep Vein Thrombosis (DVT), Hearing Disorder / Deafness, Hyperlipidemia, Myocardial Infarction (UT), Renal Disease, Vascular Disorder Additional Past Medical History / Comment(s): IDDM type II, ESRD with hemodia lysis //, cardiomyopathy/AICD/pacer, multiple MIs, PVD L leg, DVTs L leg x6, hypotension, occasional L ankle edema, RLS, L ear deaf and R ear has 30% hearing. Last Myocardial Infarction Date:: 02/18/21 History of Any Multi-Drug Resistant Organisms: None Reported Past Surgical History: AICD, Cardiac Ablation, Cholecystectomy, Coronary Bypass/CABG, Heart Catheterization, Heart Catheterization With Stent, Hernia Repair, Pacemaker, Tonsillectomy Additional Past Surgical History / Comment(s): AICD/pacer, cardiac ablations, PCI/stents x2, 2013 CABG 4 vessel, bilateral inguinal hernia repairs with r side done twice, peritoneal catheter since removed, R arm fistula never worked, R subclavian dialysis catheter. Past Anesthesia/Blood Transfusion Reactions: Postoperative Nausea & Vomiting (PONV) Date of Last Stent Placement:: 01/2021 Type of Cardiac Device: Permanent Pacemaker, AICD Device Placement Date:: 04/04/2017 [employer] Past Psychological History: Anxiety Additional Psychological History / Comment(s): Pt resides with his spouse. He is independent. Smoking Status: Never smoker Past Alcohol Use History: None Reported Additional Past Alcohol Use History / Comment(s): Started smoking at age 18 (1983), smoked 1PPD, quit in 2019. Past Drug Use History: None Reported - Past Family History Mother Family Medical History: Coronary Artery Disease (CAD), Dementia Additional Family Medical History / Comment(s): . Father Family Medical History: CVA/TIA Additional Family Medical History / Comment(s): of a CVA at the age of 47yrs. Medications and Allergies Home Medications Medication Instructions Recorded Confirmed Type Aspirin [Adult Low Dose Aspirin EC] 81 mg PO DAILY 03/31/17 07/04/21 History Escitalopram [Lexapro] 10 mg PO HS 03/31/17 07/04/21 History Rosuvastatin Calcium [Crestor] 40 mg PO DAILY 03/31/17 07/04/21 History Carvedilol [Coreg] 12.5 mg PO BID 06/20/19 07/04/21 History Insulin Glargine,Hum.rec.anlog 1 - 26 unit SQ SUMOWEFR PRN 02/18/21 07/04/21 History [Basaglar Kwikpen U-100] calcitrioL [Calcitriol] 0.5 mcg PO TUTHSA 02/18/21 07/04/21 History Clopidogrel [Plavix] 75 mg PO DAILY #90 tab 02/19/21 07/04/21 Rx Dulaglutide [Trulicity] 3 mg SQ BARBER 04/07/21 07/04/21 History Folic Acid-Vit B Complex-Vit C 1 cap PO TUTHSA 04/07/21 07/04/21 History [Nephrocaps] Furosemide [Lasix] 60 mg PO BID@0900,1600 04/07/21 07/04/21 History Insulin Lispro [humaLOG Kwikpen] 0 - 40 unit SQ TUTHSA PRN 04/07/21 07/04/21 History Iron 50 Mg 50 mg IJ DAILY PRN 04/07/21 07/04/21 History Sevelamer Carbonate 1,600 mg PO TID-W/MEALS 04/07/21 07/04/21 History Calc Carb/Jennie D 1000 Units 1 tab PO DAILY 07/02/21 07/04/21 History rOPINIRole HCL [Requip] 1 mg PO HS 07/02/21 07/04/21 History traZODone HCL [Desyrel] 100 mg PO HS PRN 07/02/21 07/04/21 History Nitroglycerin Sl Tabs [Nitrostat] 0.4 mg SL Q5M PRN 07/04/21 07/04/21 History Allergies Allergy/AdvReac Type Severity Reaction Status Date / Time morphine Allergy Severe Rash/Hives Verified 07/04/21 18:01 adhesive tape Allergy Rash/Hives Verified 07/04/21 18:01 Physical Exam Vitals: Vital Signs Temp Pulse Pulse Resp BP BP Pulse Ox 07/05/21 08:03 99 07/05/21 07:00 97.4 F L 69 16 116/86 99 07/05/21 01:48 98.0 F 64 20 108/76 97 07/04/21 20:46 97.6 F 73 20 108/77 98 07/04/21 20:21 98.2 F 74 18 101/84 99 07/04/21 17:03 71 18 110/85 98 07/04/21 16:35 18 07/04/21 16:18 97.5 F L 72 20 106/80 100 Intake and Output 07/04/21 07/05/21 07/05/21 22:59 06:59 14:59 Intake Total 118 Balance 118 Intake: Oral 118 Other: # Voids 1 1 Weight 86.183 kg Patient is awake alert oriented 3. He is not in any acute distress. Examination of the heart S1 and S2 Examination lungs bilateral breath sounds are heard Abdomen is soft nontender Examination of the lower extremities shows no evidence of edema. [employer] exam grossly intact Results - Lab Results Most recent lab results Calcium 9.9 mg/dL (8.7-10.3) 07/05/21 06:06 Magnesium 2.6 mg/dL (1.5-2.4) H 07/05/21 06:06 07/05/21 06:06 07/05/21 06:06 Assessment and Plan Assessment: 1. End-stage renal disease on hemodialysis on a Monday schedule 2. Shortness of breath with no significant volume overload and it noted clinic ally however we will challenge with an extra treatment today. He can receive his dialysis as outpatient if he is discharged soon. He will follow-up tomorrow for his regular outpatient treatment. 3. CK D mineral bone disorder 4. Coronary artery disease with acute UT in the fall of last year with borderline elevated troponins being followed by cardiology Plan: 1. Hemodialysis today. This can be done as outpatient. This will be an extra treatment. Patient will follow-up for his regular outpatient treatment tomorrow. Avoid hypotension. Consider decreasing Coreg to allow room for Mode inhibitors. Thank you for the consultation.
[2021-07-06 10:42] LABS: Hepatitis B Surface AB- Quant 3.5 mIU/mL; Hepatitis B Surface Antibody Nonreactive (Nonreactive)
[2021-07-11] MEDS ORDERED: NON FORMULARY DRUG (Dulaglutide [Trulicity] 3 MG/0.5 ML Each) SQ SCH (09:00)
== END 2021-07-05 12:47 | disposition home or self-care (01) ==
LOC: EC 16:17 → 6NMEDSUR 18:46
PROVIDERS: ADMIT Family Medicine; ATTEND Family Medicine
DX: I13.2 Hypertensive heart and chronic kidney disease with heart failure and with stage 5 chronic kidney disease, or end stage renal disease (principal); E11.22 Type 2 diabetes mellitus with diabetic chronic kidney disease; N18.6 End stage renal disease; I50.22 Chronic systolic (congestive) heart failure; I95.9 Hypotension, unspecified; I27.20 Pulmonary hypertension, unspecified; Z20.822 Contact with and (suspected) exposure to COVID-19; E78.5 Hyperlipidemia, unspecified; I25.5 Ischemic cardiomyopathy; I25.10 Atherosclerotic heart disease of native coronary artery without angina pectoris; E11.51 Type 2 diabetes mellitus with diabetic peripheral angiopathy without gangrene; H91.92 Unspecified hearing loss, left ear; I25.2 Old myocardial infarction; F41.9 Anxiety disorder, unspecified; G25.81 Restless legs syndrome; K40.20 Bilateral inguinal hernia, without obstruction or gangrene, not specified as recurrent; E66.9 Obesity, unspecified; Z68.27 Body mass index [BMI] 27.0-27.9, adult; Z79.899 Other long term (current) drug therapy; Z79.82 Long term (current) use of aspirin; Z79.4 Long term (current) use of insulin; Z79.02 Long term (current) use of antithrombotics/antiplatelets; Z91.048 Other nonmedicinal substance allergy status; Z88.5 Allergy status to narcotic agent; M89.9 Disorder of bone, unspecified; Z87.891 Personal history of nicotine dependence; Z86.718 Personal history of other venous thrombosis and embolism; Z90.49 Acquired absence of other specified parts of digestive tract; Z95.810 Presence of automatic (implantable) cardiac defibrillator; Z95.1 Presence of aortocoronary bypass graft; Z99.2 Dependence on renal dialysis; Z82.49 Family history of ischemic heart disease and other diseases of the circulatory system; Z82.3 Family history of stroke; Z82.0 Family history of epilepsy and other diseases of the nervous system
CPT/HCPCS: 99285; 96372 ×2; 36415; 93005; 83880; 80053 ×2; 83605; 83735; 84484; 85025 ×2; 86706; 87340; 87502; 87635; 71046; G0378 ×2; J1644 ×2

== ENCOUNTER 2021-09-04 00:33 | Emergency (ER) | payer BC ==
--- NOTE | 2021-09-04 01:05 | ED ---
SOB HPI - General Chief Complaint: Shortness of Breath Stated Complaint: Shortness of Breath Time Seen by Provider: 09/04/21 00:50 Source: patient, RN notes reviewed, old records reviewed Mode of arrival: ambulatory Limitations: no limitations - History of Present Illness Initial Comments: This is a 55-year-old male to the emergency department for evaluation. Patient is presenting for evaluation shortness of breath history of COPD history of CHF history of renal failure on dialysis. Patient does have dialysis scheduled for the morning. Patient prefers to keep that appointment. Patient is no travel show sick contacts no fevers no cough or congestion. No travel history or sick contacts. Patient no longer urinates MD Complaint: shortness of breath, anxiety -: hour(s) Severity: moderate Severity scale (1-10): 4 Consistency: constant Improves With: nothing Worsens With: lying flat Known History Of: COPD, congestive heart failure Context: recent URI, recent illness Associated Symptoms: chest pain, cough, palpitations Treatments Prior to Arrival: none - Related Data Home Medications Medication Instructions Recorded Confirmed Aspirin [Adult Low Dose Aspirin EC] 81 mg PO DAILY 03/31/17 07/04/21 Escitalopram [Lexapro] 10 mg PO HS 03/31/17 07/04/21 Rosuvastatin Calcium [Crestor] 40 mg PO DAILY 03/31/17 07/04/21 Carvedilol [Coreg] 12.5 mg PO BID 06/20/19 07/04/21 Insulin Glargine,Hum.rec.anlog 1 - 26 unit SQ SUMOWEFR PRN 02/18/21 07/04/21 [Basaglar Kwikpen U-100] calcitrioL [Calcitriol] 0.5 mcg PO TUTHSA 02/18/21 07/04/21 Dulaglutide [Trulicity] 3 mg SQ BARBER 04/07/21 07/04/21 Folic Acid-Vit B Complex-Vit C 1 cap PO TUTHSA 04/07/21 07/04/21 [Nephrocaps] Furosemide [Lasix] 60 mg PO BID@0900,1600 04/07/21 07/04/21 Insulin Lispro [humaLOG Kwikpen] 0 - 40 unit SQ TUTHSA PRN 04/07/21 07/04/21 Iron 50 Mg 50 mg IJ DAILY PRN 04/07/21 07/04/21 Sevelamer Carbonate 1,600 mg PO TID-W/MEALS 04/07/21 07/04/21 Calc Carb/Jennie D 1000 Units 1 tab PO DAILY 07/02/21 07/04/21 rOPINIRole HCL [Requip] 1 mg PO HS 07/02/21 07/04/21 traZODone HCL [Desyrel] 100 mg PO HS PRN 07/02/21 07/04/21 Nitroglycerin Sl Tabs [Nitrostat] 0.4 mg SL Q5M PRN 07/04/21 07/04/21 Previous Rx's Medication Instructions Recorded Clopidogrel [Plavix] 75 mg PO DAILY #90 tab 02/19/21 Allergies Allergy/AdvReac Type Severity Reaction Status Date / Time morphine Allergy Severe Rash/Hives Verified 09/04/21 00:46 adhesive tape Allergy Rash/Hives Verified 09/04/21 00:46 Review of Systems ROS Statement: Those systems with pertinent positive or pertinent negative responses have been documented in the HPI. ROS Other: All systems not noted in ROS Statement are negative. Past Medical History Past Medical History: Coronary Artery Disease (CAD), Heart Failure, Diabetes Mellitus, Dialysis, Deep Vein Thrombosis (DVT), Hearing Disorder / Deafness, H yperlipidemia, Myocardial Infarction ([place]), Renal Disease, Vascular Disorder Additional Past Medical History / Comment(s): IDDM type II, ESRD with hemodialysis //, cardiomyopathy/AICD/pacer, multiple MIs, PVD L leg, DVTs L leg x6, hypotension, occasional L ankle edema, RLS, L ear deaf and R ear has 30% hearing. Last Myocardial Infarction Date:: 02/18/21 History of Any Multi-Drug Resistant Organisms: None Reported Past Surgical History: AICD, Cardiac Ablation, Cholecystectomy, Coronary Bypas s/CABG, Heart Catheterization, Heart Catheterization With Stent, Hernia Repair, Pacemaker, Tonsillectomy Additional Past Surgical History / Comment(s): AICD/pacer, cardiac ablations, PCI/stents , 2013 CABG 4 vessel, bilateral inguinal hernia repairs with r side done twice, peritoneal catheter since removed, R arm fistula never worked, R subclavian dialysis catheter. Past Anesthesia/Blood Transfusion Reactions: Postoperative Nausea & Vomiting (P ONV) Date of Last Stent Placement:: 01/2021 Type of Cardiac Device: Permanent Pacemaker, AICD Device Placement Date:: 04/04/2017 [employer] Past Psychological History: Anxiety Smoking Status: Never smoker Past Alcohol Use History: None Reported Past Drug Use History: None Reported - Past Family History Mother Family Medical History: Coronary Artery Disease (CAD), Dementia Additional Family Medical History / Comment(s): . Father Family Medical History: CVA/TIA Additional Family Medical History / Comment(s): of a CVA at the age of 47yrs. General Exam Limitations: no limitations General appearance: alert, in no apparent distress Head exam: Present: atraumatic, normocephalic, normal inspection Eye exam: Present: normal appearance, PERRL, EOMI. Absent: scleral icterus, conjunctival injection, periorbital swelling ENT exam: Present: normal exam, mucous membranes moist Neck exam: Present: normal inspection. Absent: tenderness, meningismus, lymphadenopathy Respiratory exam: Present: rhonchi, decreased breath sounds, prolonged expiratory. Absent: respiratory distress, wheezes, rales, stridor Cardiovascular Exam: Present: regular rate, normal rhythm, normal heart sounds. Absent: systolic murmur, diastolic murmur, rubs, gallop, clicks GI/Abdominal exam: Present: soft, normal bowel sounds. Absent: distended, tenderness, guarding, rebound, rigid Extremities exam: Present: normal inspection, full ROM, normal capillary refill. Absent: tenderness, pedal edema, joint swelling, calf tenderness Back exam: Present: normal inspection Neurological exam: Present: alert, oriented X3, CN II-XII intact Psychiatric exam: Present: normal affect, normal mood Skin exam: Present: warm, dry, intact, normal color. Absent: rash Course Vital Signs 09/04/21 09/04/21 00:43 01:59 Temperature 98.7 F 98 F Pulse Rate 76 87 Respiratory 18 24 Rate Blood Pressure 86/58 149/89 O2 Sat by Pulse 97 98 Oximetry - Reevaluation(s) Reevaluation #1: 09/04/21 Medical record is reviewed Patient symptoms are improved here in the emergency department Patient informed results and questions answered Medical Decision Making - Medical Decision Making 55 male to the emergency department for evaluation of shortness of breath patient presented with shortness breath here in the ER low feeling improved currently mild CHF on x-ray troponin is improved from his baseline. At this time patient prefers discharged home - Lab Data Result diagrams: 09/04/21 01:19 09/04/21 01:19 Lab Results 09/04/21 09/04/21 09/04/21 Range/Units 01:19 01:19 01:19 WBC 6.8 (3.8-10.6) k/uL RBC 3.45 L (4.30-5.90) m/uL Hgb 11.1 L (13.0-17.5) gm/dL Hct 34.5 L (39.0-53.0) % MCV 100.2 H (80.0-100.0) fL MCH 32.3 (25.0-35.0) pg MCHC 32.2 (31.0-37.0) g/dL RDW 17.3 H (11.5-15.5) % Plt Count 187 (150-450) k/uL MPV 9.3 Neutrophils % 81 % Lymphocytes % 9 % Monocytes % 5 % Eosinophils % 3 % Basophils % 1 % Neutrophils # 5.5 (1.3-7.7) k/uL Lymphocytes # 0.6 L (1.0-4.8) k/uL Monocytes # 0.3 (0-1.0) k/uL Eosinophils # 0.2 (0-0.7) k/uL Basophils # 0.1 (0-0.2) k/uL Hypochromasia Slight Anisocytosis Slight Macrocytosis Slight PT 12.1 H (9.0-12.0) sec INR 1.1 (<1.2) APTT 22.4 (22.0-30.0) sec Sodium 136 L (137-145) mmol/L Potassium 4.1 (3.5-5.1) mmol/L Chloride 96 L (98-107) mmol/L Carbon Dioxide 23 (22-30) mmol/L Anion Gap 17 mmol/L BUN 88 H (9-20) mg/dL Creatinine 5.16 H (0.66-1.25) mg/dL Est GFR (CKD-EPI)AfAm 13 (>60 ml/min/1.73 sqM) Est GFR (CKD-EPI)NonAf 12 (>60 ml/min/1.73 sqM) Glucose 284 H (74-99) mg/dL Calcium 8.9 (8.4-10.2) mg/dL Total Bilirubin 1.0 (0.2-1.3) mg/dL AST 19 (17-59) U/L ALT 17 (4-49) U/L Alkaline Phosphatase 184 H (38-126) U/L Troponin I (0.000-0.034) ng/mL NT-Pro-B Natriuret Pep pg/mL Total Protein 7.1 (6.3-8.2) g/dL Albumin 3.9 (3.5-5.0) g/dL 09/04/21 09/04/21 Range/Units 01:19 01:19 WBC (3.8-10.6) k/uL RBC (4.30-5.90) m/uL Hgb (13.0-17.5) gm/dL Hct (39.0-53.0) % MCV (80.0-100.0) fL MCH (25.0-35.0) pg MCHC (31.0-37.0) g/dL RDW (11.5-15.5) % Plt Count (150-450) k/uL MPV Neutrophils % % Lymphocytes % % Monocytes % % Eosinophils % % Basophils % % Neutrophils # (1.3-7.7) k/uL Lymphocytes # (1.0-4.8) k/uL Monocytes # (0-1.0) k/uL Eosinophils # (0-0.7) k/uL Basophils # (0-0.2) k/uL Hypochromasia Anisocytosis Macrocytosis PT (9.0-12.0) sec INR (<1.2) APTT (22.0-30.0) sec Sodium (137-145) mmol/L Potassium (3.5-5.1) mmol/L Chloride (98-107) mmol/L Carbon Dioxide (22-30) mmol/L Anion Gap mmol/L BUN (9-20) mg/dL Creatinine (0.66-1.25) mg/dL Est GFR (CKD-EPI)AfAm (>60 ml/min/1.73 sqM) Est GFR (CKD-EPI)NonAf (>60 ml/min/1.73 sqM) Glucose (74-99) mg/dL Calcium (8.4-10.2) mg/dL Total Bilirubin (0.2-1.3) mg/dL AST (17-59) U/L ALT (4-49) U/L Alkaline Phosphatase (38-126) U/L Troponin I 0.071 H* (0.000-0.034) ng/mL NT-Pro-B Natriuret Pep 68762 pg/mL Total Protein (6.3-8.2) g/dL Albumin (3.5-5.0) g/dL - Radiology Data Radiology results: report reviewed (Chest x-ray shows mild CHF), image reviewed Disposition Clinical Impression: Systolic congestive heart failure, Elevated troponin I level, COPD (chronic obstructive pulmonary disease), ESRD on dialysis, Elevated troponin, End stage renal disease, Dyspnea Disposition: HOME SELF-CARE Condition: Good Instructions (If sedation given, give patient instructions): Heart Failure (E R), Pulmonary Edema (ED) Is patient prescribed a controlled substance at d/c from ED?: No Referrals: Maurice Hernandez MD [Primary Care Provider] - 1-2 days
--- NOTE | 2021-09-04 01:29 | XR ---
EXAMINATION TYPE: XR chest 1V portable DATE OF EXAM: 09/04/2021 COMPARISON: NONE HISTORY: Short of breath TECHNIQUE: Single view FINDINGS: Heart is enlarged. There are sternal wires. There is left axillary pacemaker noted. There i s right-sided central venous catheter with tip in the right atrium. There is no pleural effusion. The re is pulmonary congestion. IMPRESSION: Cardiomegaly. There is some mild pulmonary congestion which is increased slightly compare d to the old exam. Mild heart failure is likely present.
[2021-09-04 01:42] LABS: Anisocytosis Slight; Basophils # (A) 0.1 k/uL (0-0.2); Basophils % (A) 1 %; Eosinophils # (A) 0.2 k/uL (0-0.7); Eosinophils % (A) 3 %; HCT 34.5 % (39.0-53.0); HGB 11.1 gm/dL (13.0-17.5); Hypochromasia Slight; Lymphocytes # (A) 0.6 k/uL (1.0-4.8); Lymphocytes % (A) 9 %; MCH 32.3 pg (25.0-35.0); MCHC 32.2 g/dL (31.0-37.0); MCV 100.2 fL (80.0-100.0); Macrocytosis Slight; Mean Platelet Volume 9.3; Monocytes # (A) 0.3 k/uL (0-1.0); Monocytes % (A) 5 %; Neutrophils # (A) 5.5 k/uL (1.3-7.7); Neutrophils % (A) 81 %; Platelet Count 187 k/uL (150-450); RBC 3.45 m/uL (4.30-5.90); RDW 17.3 % (11.5-15.5); WBC 6.8 k/uL (3.8-10.6)
[2021-09-04 01:49] LABS: INR 1.1 (<1.2); Partial Thromboplastin Time 22.4 sec (22.0-30.0); Prothrombin Time 12.1 sec (9.0-12.0)
[2021-09-04 02:00] VITALS: BP 149/89; PULSE 87; RESP 24; TEMP 98
[2021-09-04 02:05] LABS: Albumin 3.9 g/dL (3.5-5.0); Calcium 8.9 mg/dL (8.4-10.2); Potassium 4.1 mmol/L (3.5-5.1); Total Protein 7.1 g/dL (6.3-8.2)
== END 2021-09-04 02:06 | disposition home or self-care (01) ==
LOC: EC 00:33
DX: I50.20 Unspecified systolic (congestive) heart failure (principal); J44.9 Chronic obstructive pulmonary disease, unspecified; E11.22 Type 2 diabetes mellitus with diabetic chronic kidney disease; N18.6 End stage renal disease; E11.51 Type 2 diabetes mellitus with diabetic peripheral angiopathy without gangrene; E78.5 Hyperlipidemia, unspecified; G25.81 Restless legs syndrome; I25.2 Old myocardial infarction; Z79.4 Long term (current) use of insulin; Z79.82 Long term (current) use of aspirin; Z95.0 Presence of cardiac pacemaker; Z95.1 Presence of aortocoronary bypass graft; Z95.5 Presence of coronary angioplasty implant and graft; Z99.2 Dependence on renal dialysis; Z88.5 Allergy status to narcotic agent; Z91.09 Other allergy status, other than to drugs and biological substances; Z79.84 Long term (current) use of oral hypoglycemic drugs
CPT/HCPCS: 36415; 71045; 80053; 83880; 84484; 85025; 85610; 85730; 93005; 99285